=== PATIENT | male | born 1960 | race Caucasian/White ===

== ENCOUNTER → 2020-11-14 08:43 | Outpatient (BNVA) | payer BC, SELFPAY | PROVIDERS: Visit Provider Urology | DX: N32.0 Bladder-neck obstruction (principal) | CPT/HCPCS: 51798 ==

== ENCOUNTER 2021-11-10 12:23 | Outpatient (REF) | payer BC, SELFPAY ==
[2021-11-10 13:34] LABS: Prostate Specific Antigen 1.02 ng/mL (<0.05-4.0)
== END 2021-11-10 12:24 | disposition home or self-care (01) ==
LOC: HO.LAB 12:23
PROVIDERS: PCP Nurse Practitioner Family; Visit Provider Urology
DX: Z12.5 Encounter for screening for malignant neoplasm of prostate (principal); N13.8 Other obstructive and reflux uropathy; N32.0 Bladder-neck obstruction; N40.1 Benign prostatic hyperplasia with lower urinary tract symptoms
CPT/HCPCS: 36415; 84153

== ENCOUNTER → 2021-11-13 08:39 | Outpatient (BNVA) | payer BC, SELFPAY | PROVIDERS: PCP Nurse Practitioner Family; Visit Provider Urology | DX: N32.0 Bladder-neck obstruction (principal) | CPT/HCPCS: 51798 ==

== ENCOUNTER → 2022-02-25 12:48 | Outpatient (REF) | payer BC, SELFPAY ==
--- NOTE | 2022-02-25 12:52 | CA_ITS ---
Transthoracic Echocardiogram Patient (Last, First, Middle): Nehemiah Flores A Gender: Male Date of : 1960 Age: 61 Procedure Date: 02/25/2022 Procedure Type: Transthoracic Echocardiogram Location: OP Height: 177.8 cm Weight: 88.45 kg BSA: 2.06 m2 Heart Rate: bpm BP: 130 / 80 mmHg Advertising Sales Representative: TO Referring MD: Bladimir Pinzon [facility] Symptoms: Z82.49 - Family history of ischemic heart disease and other diseases of ... Study Quality: Fair ECG Rhythm: Sinus Conclusions: - The left ventricular systolic function is low normal. The calculated ejection fraction is 54% by biplane method. - No obvious valvular pathology seen on this study. Findings Left Ventricle Normal left ventricular cavity size. There is normal left ventricular wall thickness. The left ventricular systolic function is low normal. The calculated ejection fraction is 54% by biplane method. There is no evidence of regional wall motion abnormalities. Diastolic function is normal for age. Right Ventricle Normal right ventricular cavity size and systolic function. Atria Both atria are normal in size. Aortic Valve There is a normal trileaflet aortic valve. There is no aortic valve stenosis. There is no aortic valve regurgitation. Mitral Valve The mitral valve appears normal. There is no mitral valve regurgitation. There is no mitral valve stenosis. Pulmonic Valve The pulmonic valve is likely normal. Tricuspid Valve Normal tricuspid valve structure. There is trace tricuspid valve regurgitation. There is no evidence of pulmonary hypertension. Great Vessels The asc aorta is normal in size. Venous The inferior vena cava is normal in size and collapses greater than 50% with inspiration. Pericardium/Pleural There is no evidence of pericardial effusion. Prior Study Comparison No prior study available for comparison. Recommendations, Care & Conclusions No obvious valvular pathology seen on this study. Measurements 2D Linear Measurements IVSd: 0.88 0.6-0.9/0.6-1.0 cm LVIDd: 5.08 3.9-5.3/4.2-5.9 cm LVIDd Index: 2.47 2.4-3.2/2.2-3.1 cm/m2 LVIDs: 3.58 2.0-3.6 cm LVPWd: 0.81 0.7-1.1 cm LA Diam: 3.00 2.7-3.8/3.0-4.0 cm LAIDs Index: 1.46 1.5-2.3 cm/m2 LV Mass: 185.93 67-162/88-224 g LV Mass Index: 90.26 43-95/49-115 g/m2 LVOT Diam: 2.40 3.0+(-)1.3 cm 2D Systolic Function EF 4C: 54.10 >55% EF 2C: 55.50 >55% EF BiP: 54.10 >55% Mitral Valve MV Pk E: 0.50 MV PK A: 0.72 MV Decel Time: 139.00 E/A: 0.70 E'Lateral: 6.42 E'Medial: 6.53 E/E' Med: 7.70 E/E' Lat: 7.80 PHT: 41.00 MVA PHT: 5.37 Decel [place]: 3.60 Aortic Valve AoV Pk Ian: 1.21 AoV Mn Ian: 0.88 AoV VTI: 0.19 AoV Pk Grad: 6.00 Aov Mn Grad: 3.00 REYNA Cont.VTI: 3.12 LVOT LVOT Pk Ian: 0.86 LVOT Mn Ian: 0.57 LVOT VTI: 0.13 LVOT Pk Grad: 3.00 LVOT Mn Grad: 1.00 LVOT Diam: 2.40 LVOT Area: 4.52 Diastolic Function MV Pk E: 0.50 MV Pk A: 0.72 E/A: 0.70 E'Medial: 6.53 E/E' Med: 7.70 E' Laterial: 6.42 E/E' Lat: 7.80 Right Ventricle TAPSE (mm): 22.80 TVS' Ian: 18.00 Tricuspid Valve TR Pk Ian: 2.33 TR Pk Grad: 22.00 RA Press: 3.00 RVSP: 25.00 Great Vessels Aorta Sinus of Valsalva: 3.60 2.0-3.5 cm Ao Asc: 3.40 2.1-3.4 cm Updated in Other Vendor System with Status of Final Bradley Mejia MD electronically signed on 02/26/2022 2:11:16 PM with status of Final
== END ==
LOC: HO.CARD 12:48
PROVIDERS: PCP Nurse Practitioner Family; Visit Provider Nurse Practitioner Family
DX: Z82.49 Family history of ischemic heart disease and other diseases of the circulatory system (principal)
CPT/HCPCS: 93306

== ENCOUNTER 2022-04-22 14:58 | Outpatient (REF) | payer BC, SELFPAY ==
--- NOTE | ~2022-04-22 | XR_ITS ---
EXAMINATION: PRE-MRI ORBITS SCREENING. CLINICAL INFORMATION: History of radiopaque foreign body in orbits COMPARISON: None TECHNIQUE: 3 views FINDINGS: There is noted radiopaque metallic foreign body seen in the orbits at this time. The paranasal sinuses and mastoid air cells are well-aerated. No bony abnormality seen. XR/XR pre mri screening IMPRESSION: Radiopaque metallic foreign body seen in the orbits at this time.
--- NOTE | ~2022-04-22 | MR_ITS ---
EXAMINATION: MRI OF THE BRAIN WITHOUT CONTRAST. CLINICAL INFORMATION: 61-year-old with migraine, unspecified, not intractable, without status migrainosus. COMPARISON: None. TECHNIQUE: Multisequence multiplanar MR imaging of the brain was done without IV contrast. FINDINGS: BRAIN VOLUME: Within normal limits within the limitations of qualitative assessment. STRUCTURAL: No malformations. BRAIN AND MENINGES: DWI sequence demonstrates no definite restricted diffusion when accounting for some artifacts. Specifically, there is no evidence for acute or subacute cerebral ischemia. Gradient refocused imaging demonstrates no abnormal susceptibility-weighted signal loss to suggest hemorrhage, hemosiderin staining or abnormal mineralization. There are numerous T2 hyperintense white matter lesions in the cerebral hemispheres bilaterally, involving the subcortical and deeper periventricular white matter with focally confluent zones of FLAIR/T2 hyperintensity in the subcortical and deeper white matter of the occipital lobes bilaterally. There are some nonspecific patchy and punctate foci of FLAIR/T2 hyperintensity in the subcortical temporal lobe white matter bilaterally. These findings are nonspecific and may reflect chronic ischemic microangiopathy. Migraine associated vasculopathy could also be considered for some of these lesions. Demyelination is considered less likely. No extra-axial fluid collections, significant space-occupying process or mass effect are identified. VENTRICLES AND SUBARACHNOID SPACES: The ventricular system and subarachnoid spaces are within normal range; there is no hydrocephalus. ORBITAL STRUCTURES: The visualized orbital structures are grossly unremarkable within the limitations of the study. VASCULAR: Signal voids are noted in the visualized major intracranial vessels. OSSEOUS STRUCTURES, SINUSES/MASTOIDS, EXTRACRANIAL SOFT TISSUES: Unremarkable. MR/MR head/brain wo con IMPRESSION: 1. Nonspecific white matter T2 hyperintensities in the cerebral hemispheres bilaterally as described above. Differential diagnostic considerations include chronic ischemic microangiopathy, migraine associated vasculopathy and less likely demyelinating disease. 2. No acute intracranial process. No evidence for hemorrhage, extra-axial fluid collection, space-occupying process, mass effect or hydrocephalus.
== END 2022-04-22 14:59 | disposition home or self-care (01) ==
LOC: HO.MRI 14:58
PROVIDERS: Visit Provider Nurse Practitioner Family
DX: G43.909 Migraine, unspecified, not intractable, without status migrainosus (principal)
CPT/HCPCS: 70551

== ENCOUNTER 2022-07-12 21:26 | Inpatient (IN) | payer BC, SELFPAY ==
--- NOTE | 2022-07-12 | ECG_ITS ---
Test Reason : DIZZINESS Blood Pressure : / mmHG Vent. Rate : 166 BPM Atrial Rate : 000 BPM P-R Int : 000 ms QRS Dur : 086 ms QT Int : 282 ms P-R-T Axes : 000 -11 006 degrees QTc Int : 468 ms Atrial fibrillation with rapid ventricular response Nonspecific ST abnormality Abnormal ECG No previous ECGs available Referred By: Generic ED Physician Electronically Signed By:ZURDO KAT MD
[2022-07-12 21:43] VITALS: BP 123/84; PULSE 89; RESP 18; TEMP 36.9; O2SAT 97; BMI 29.4
--- NOTE | 2022-07-12 22:04 | ECG_ITS ---
Test Reason : tachycardia Blood Pressure : / mmHG Vent. Rate : 144 BPM Atrial Rate : 288 BPM P-R Int : 000 ms QRS Dur : 086 ms QT Int : 320 ms P-R-T Axes : 261 -01 -05 degrees QTc Int : 495 ms Atrial flutter with 2:1 A-V conduction Nonspecific ST and T wave abnormality Abnormal ECG When compared with ECG of 12-JUL-2022 21:55, Atrial flutter has replaced Atrial fibrillation ST now depressed in Inferior leads Referred By: Joce Plummer Electronically Signed By:ZURDO KAT MD
--- NOTE | 2022-07-12 22:04 | ECG_ITS ---
Test Reason : tachycardia Blood Pressure : / mmHG Vent. Rate : 107 BPM Atrial Rate : 000 BPM P-R Int : 000 ms QRS Dur : 092 ms QT Int : 302 ms P-R-T Axes : 000 016 017 degrees QTc Int : 403 ms Atrial fibrillation with rapid ventricular response Abnormal ECG When compared with ECG of 12-JUL-2022 22:04, Atrial fibrillation has replaced Atrial flutter ST no longer depressed in Inferior leads Nonspecific T wave abnormality no longer evident in Lateral leads Referred By: Joce Plummer Electronically Signed By:ZURDO KAT MD
[2022-07-12] MEDS: dilTIAZem HCL 50 MG/10 ML VIAL 20 MG IVPUSH ×2 (22:06→22:17)
[2022-07-12 22:15] LABS: MANUAL DIFF FLAG NO
--- NOTE | 2022-07-12 22:16 | ED.ARRPALP ---
HPI - Arrhythmia/Palpitations General Chief Complaint: Dizziness Stated Complaint: dizziness Time Seen by Provider: 07/12/22 22:04 Source: patient Mode of arrival: ambulatory Limitations: no limitations History of Present Illness HPI narrative: Patient with no history of coronary artery disease or arrhythmias felt dizzy while driving at 20:00 became sweaty and diaphoretic on arrival noticed to have pulse rate of 160 irregularly irregular denies any chest pain or shortness of breath patient never been told that he had atrial fibrillation in the past. Patient heart rate increased to 240s when triaged. Related Data Home Medications Medication Instructions Recorded Confirmed cinnamon bark 500 mg capsule 500 mg PO DAILY 10/08/20 06/03/22 loratadine 10 mg tablet (Allergy 10 mg PO DAILY 10/08/20 06/03/22 Relief (loratadine)) venlafaxine 150 mg 150 mg PO DAILY 10/08/20 06/03/22 capsule,extended release 24 hr calcium carbonate 600 mg-vitamin cap PO 06/03/22 06/03/22 D3 25 mcg (1,000 unit) capsule hydrocodone-homatropine 5 mg-1.5 ml PO 06/03/22 06/03/22 mg/5 mL oral syrup tamsulosin 0.4 mg capsule 0.4 mg PO BEDTIME 06/03/22 06/03/22 Previous Rx's Medication Instructions Recorded fenofibrate 160 mg tablet 160 mg PO DAILY 90 days #90 tabs 10/18/21 amitriptyline 10 mg tablet 10 mg PO BEDTIME 30 days #30 tabs 04/13/22 naproxen 500 mg tablet 500 mg PO BID PRN pain/migraine 30 04/13/22 days #30 tabs omeprazole 20 mg capsule,delayed 20 mg PO DAILY #90 caps 06/03/22 release Allergies Allergy/AdvReac Type Severity Reaction Status Date / Time celecoxib [From CELEBREX] Allergy Unknown HIVES Verified 07/12/22 21:33 penicillin G Allergy Unknown rash, Verified 07/12/22 21:33 swelling penicillin V Allergy Unknown hives Verified 07/12/22 21:33 Penicillins [PENICILLINS] Allergy Unknown HIVES Verified 07/12/22 21:33 Review of Systems Review of Systems: Yes all other systems are reviewed and are negative PMFSH Past Medical History Medical History Bladder outlet obstruction Nocturia MCKENNA (obstructive sleep apnea) Pulmonary nodules Weak urinary stream Surgical History History of surgery Leukoplakia Family History Family History Father CVD (cardiovascular disease) Alzheimer's disease Dementia Substance use disorder Mother Infection of spine Substance use disorder Paternal Aunt Diabetes mellitus Brother No problems noted. Sister No problems noted. Sister No problems noted. Sister No problems noted. Sister No problems noted. Social History Social History Housing: House Patient Tobacco Use Status: Former Tobacco user Tobacco use type: Cigarette Years Smoked: 25 years Smoked in Last 30 Days: No e-Cigarette/Vaping Use: Never Used Second Hand Smoke Exposure: No Any prior treatment program specific to substance use: No Advance Directives: No Advance Directives Information Provided: Yes service: Yes Current occupational status: employed Current occupation: [employer] Current occupational exposures/hazards: No Cognitive needs: No Hearing needs: No Vision needs: No Physical Exam Vital Signs: Vital Signs: Last Vital Signs Temp 98.1 F 07/13/22 04:36 Pulse 96 07/13/22 04:36 Resp 20 07/13/22 04:36 BP 132/84 07/13/22 04:36 Pulse Ox 96 07/13/22 04:36 O2 Del Method Room Air 07/13/22 04:36 BMI result Body Mass Index 29.4 Appearance: Alert. Oriented X3. Diaphoretic Eyes: PERRLA, No Nystagmus ENT: Pharynx normal. Oral Mucosa moist Neck: Normal inspection. Neck supple. CVS: Irregularly irregular tachycardic no murmur rub or gallop Pulses normal. Respiratory: No respiratory distress. Equal air entry bilateral, no wheezing/rales/rhonchi Abdomen: Soft and nontender. Bowel sounds are present, Skin: Skin warm and dry. Normal skin color. Normal skin turgor. Extremities: No lower extremity edema. No calf tenderness Neuro: Oriented X 3. No motor deficit. No sensory deficit.No cerebellar signs , cranial nerves II-XII intact Medications Administered Generic Name Dose Route Start Last Admin Trade Name Freq PRN Reason Stop Dose Admin Diltiazem HCl 125 mg/ Sodium 125 mls @ 0 mls/hr 07/12/22 22:15 07/12/22 22:45 Chloride IVCONT 5 mg/hr .Q0M KEANU 5 mls/hr Administration Protocol Per Protocol Discontinued Medications Generic Name Dose Route Start Last Admin Trade Name Jamal PRN Reason Stop Dose Admin Apixaban 5 mg 07/12/22 22:24 07/12/22 22:42 Apixaban 5 Mg Tablet PO 07/12/22 22:25 5 mg ONCE ONE Administration Diltiazem HCl 20 mg 07/12/22 22:04 07/12/22 22:06 Diltiazem Hcl 50 Mg/10 Ml Vial IVPUSH 07/12/22 22:05 20 mg STAT STA Administration Diltiazem HCl 20 mg 07/12/22 22:13 07/12/22 22:17 Diltiazem Hcl 50 Mg/10 Ml Vial IVPUSH 07/12/22 22:14 20 mg STAT STA Administration Sodium Chloride 1,000 mls @ 999 mls/hr 07/12/22 22:21 07/12/22 23:44 Ns IV 07/12/22 23:21 Infused .Q1H1M ONE Infusion Medical Decision Making Medical Decision Making [facility] Narrative: Patient with new onset of atrial fibrillation with rapid ventricular response initial heart rate was 240s responded to20 mg of Cardizem again went back to 140s range , another dose of Cardizem was given and started on Cardizem drip 2345 patient's heart rate in 90s on Cardizem drip feeling much better admitted to medical floor hospitalist aware Differential Diagnosis Atrial flutter/AFib/SVT Consult Healthcare Provider Management of the patient was discussed with: Hospitalist Lab Data MDM Lab Attestation statement: I reviewed the patient's lab results. 07/12/22 22:09 Labs: Lab Results 07/12/22 07/12/22 07/12/22 Range/Units 22:09 22:09 22:09 WBC 7.6 (4.8-10.8) X10*3/uL RBC 4.62 (4.60-5.80) X10*6/uL Hgb 15.2 (14.0-18.0) g/dl Hct 44.9 (42.0-52.0) % MCV 97.2 (80.0-98.0) fL MCH 32.9 (27.0-33.0) pg MCHC 33.9 (31.0-36.0) g/dl RDW 12.6 (11.0-16.0) % Plt Count 237 (160-400) X10*3/uL MPV 9.8 (9.4-12.4) fL Immature Gran % (Auto) 0.3 (0.0-0.4) % Neut % (Auto) 70.2 (45-73) % Lymph % (Auto) 20.3 (20-40) % [place] % (Auto) 7.4 (2-11) % Eos % (Auto) 0.9 (0-4) % Baso % (Auto) 0.9 (0-2) % Lymph # (Auto) 1.5 (1.2-4.9) X10*3/uL [place] # (Auto) 0.6 (0.1-1.2) X10*3/uL Eos # (Auto) 0.1 (0.0-0.4) X10*3/uL Baso # (Auto) 0.1 (0.0-0.2) X10*3/uL Abs Immat Gran (auto) 0.02 (0.00-0.03) X10*3/uL Absolute Neuts (auto) 5.3 (2.0-8.3) x10*3/uL Absolute Nucleated RBC 0.000 (0.0-0.012) X10*3/uL Nucleated RBC % (auto) 0.0 (0.0-0.2) /100WBC PT 10.8 (10.0-13.1) SEC INR 0.9 (0.9-1.1) APTT 28.7 (26.0-36.4) SEC Sodium (135-145) mmol/L Potassium (3.3-5.1) mmol/L Chloride (96-108) mmol/L Carbon Dioxide (22-29) mmol/L Anion Gap (12-20) BUN (9-16) mg/dL Creatinine (0.5-1.4) mg/dL Estim Creat Clear Calc Estimated GFR Random Glucose (60-115) mg/dL Calcium (8.4-10.2) mg/dL Magnesium (1.6-2.6) mg/dL Total Bilirubin (0.0-1.0) mg/dL AST (5-37) U/L ALT (0-40) U/L Alkaline Phosphatase (39-117) U/L Troponin I High Sens 7.3 (<3.5-35.0) ng/L B-Natriuretic Peptide (<100) pg/mL Total Protein (6.5-8.0) g/dL Albumin (3.5-5.0) g/dL TSH (0.32-4.0) uIU/mL 07/12/22 07/12/22 Range/Units 22:09 22:09 WBC (4.8-10.8) X10*3/uL RBC (4.60-5.80) X10*6/uL Hgb (14.0-18.0) g/dl Hct (42.0-52.0) % MCV (80.0-98.0) fL MCH (27.0-33.0) pg MCHC (31.0-36.0) g/dl RDW (11.0-16.0) % Plt Count (160-400) X10*3/uL MPV (9.4-12.4) fL Immature Gran % (Auto) (0.0-0.4) % Neut % (Auto) (45-73) % Lymph % (Auto) (20-40) % [place] % (Auto) (2-11) % Eos % (Auto) (0-4) % Baso % (Auto) (0-2) % Lymph # (Auto) (1.2-4.9) X10*3/uL [place] # (Auto) (0.1-1.2) X10*3/uL Eos # (Auto) (0.0-0.4) X10*3/uL Baso # (Auto) (0.0-0.2) X10*3/uL Abs Immat Gran (auto) (0.00-0.03) X10*3/uL Absolute Neuts (auto) (2.0-8.3) x10*3/uL Absolute Nucleated RBC (0.0-0.012) X10*3/uL Nucleated RBC % (auto) (0.0-0.2) /100WBC PT (10.0-13.1) SEC INR (0.9-1.1) APTT (26.0-36.4) SEC Sodium 145 (135-145) mmol/L Potassium 4.4 (3.3-5.1) mmol/L Chloride 109 H (96-108) mmol/L Carbon Dioxide 27 (22-29) mmol/L Anion Gap 13 (12-20) BUN 13 (9-16) mg/dL Creatinine 1.38 (0.5-1.4) mg/dL Estim Creat Clear Calc 64.4 Estimated GFR 52 Random Glucose 108 (60-115) mg/dL Calcium 9.2 (8.4-10.2) mg/dL Magnesium 1.8 (1.6-2.6) mg/dL Total Bilirubin 0.5 (0.0-1.0) mg/dL AST 14 (5-37) U/L ALT 12 (0-40) U/L Alkaline Phosphatase 41 (39-117) U/L Troponin I High Sens (<3.5-35.0) ng/L B-Natriuretic Peptide 14 (<100) pg/mL Total Protein 6.4 L (6.5-8.0) g/dL Albumin 4.1 (3.5-5.0) g/dL TSH 1.12 (0.32-4.0) uIU/mL Independent Interpretation I performed an independent interpretation of an: EKG Interpretation: Atrial fibrillation with heart rate of 166 beats per minute no acute ST-T changes no acute ischemia Critical Care Time Critical Care Time Critical Care Time: Yes Total Critical Care Time: 90 Attestation: The patient was critically ill with a high probability of imminent or life threatening deterioration. I spent greater than 90 minutes of discontinuous time evaluating the patient,delivering critical care at the bedside, discussing and evaluating pertinent data with consultants. Critical care time does not include time spent performing separately billable procedures or teaching. Total time spent performing critical care was 85 minutes. Discharge Plan Discharge Clinical Impression: Atrial fibrillation with rapid ventricular response Patient Disposition: Admitted As Inpatient
[2022-07-12 22:17] LABS: Basophils Absolute Auto 0.1 X10*3/uL (0.0-0.2); Basophils Percent Auto 0.9 % (0-2); Eosinophils Absolute Auto 0.1 X10*3/uL (0.0-0.4); Eosinophils Percent Auto 0.9 % (0-4); Hematocrit 44.9 % (42.0-52.0); Hemoglobin 15.2 g/dl (14.0-18.0); Imm Gran Abs Auto 0.02 X10*3/uL (0.00-0.03); Imm Gran Pct Auto 0.3 % (0.0-0.4); Lymphocytes Absolute Auto 1.5 X10*3/uL (1.2-4.9); Lymphocytes Percent Auto 20.3 % (20-40); Mean Corpuscular HGB Conc 33.9 g/dl (31.0-36.0); Mean Corpuscular Hemoglobin 32.9 pg (27.0-33.0); Mean Corpuscular Volume 97.2 fL (80.0-98.0); Mean Platelet Volume 9.8 fL (9.4-12.4); Monocytes Absolute Auto 0.6 X10*3/uL (0.1-1.2); Monocytes Percent Auto 7.4 % (2-11); Neutrophils Absolute Auto 5.3 x10*3/uL (2.0-8.3); Neutrophils Percent Auto 70.2 % (45-73); Platelet Count 237 X10*3/uL (160-400); Red Blood Count 4.62 X10*6/uL (4.60-5.80); Red Cell Distribution Width 12.6 % (11.0-16.0); White Blood Count 7.6 X10*3/uL (4.8-10.8)
[2022-07-12 22:25] VITALS: BP 103/79; PULSE 94; RESP 18; TEMP 36.8; O2SAT 98
[2022-07-12 22:30] LABS: INTERNATIONAL NORM RATIO 0.9 (0.9-1.1); Prothrombin Time 10.8 SEC (10.0-13.1)
[2022-07-12 22:33] LABS: Partial Thromboplastin Time 28.7 SEC (26.0-36.4)
[2022-07-12 22:41] LABS: B Type Natriuretic Peptide 14 pg/mL (<100)
[2022-07-12] MEDS: Apixaban 5 MG TABLET PO (22:42)
[2022-07-12] MEDS: 0.9 % Sodium Chloride 1,000 ML 999 ML IV (22:43)
[2022-07-12 22:44] LABS: Alanine Aminotransferase 12 U/L (0-40); Albumin Level 4.1 g/dL (3.5-5.0); Alkaline Phosphatase 41 U/L (39-117); Anion Gap 13 (12-20); Aspartate Amino Transferase 14 U/L (5-37); Bilirubin Total 0.5 mg/dL (0.0-1.0); Blood Urea Nitrogen 13 mg/dL (9-16); Calcium 9.2 mg/dL (8.4-10.2); Carbon Dioxide 27 mmol/L (22-29); Chloride 109 mmol/L (96-108); Creatinine Clr Calc Pharmacy 64.4; Estimated Glomerular Filt Rate 52; Glucose Random 108 mg/dL (60-115); Magnesium 1.8 mg/dL (1.6-2.6); Potassium 4.4 mmol/L (3.3-5.1); Sodium 145 mmol/L (135-145); Total Protein 6.4 g/dL (6.5-8.0)
[2022-07-12 22:45] LABS: Troponin-I High Sensitivity 7.3 ng/L (<3.5-35.0)
[2022-07-12] MEDS: dilTIAZem HCL 125 MG in 0.9 % Sodium Chloride 100 ML IVCONT (22:45)
[2022-07-12 22:58] LABS: Thyroid Stimulating Hormone 1.12 uIU/mL (0.32-4.0)
[2022-07-13] VITALS (13 sets, daily range): BP systolic 113–135; BP diastolic 70–95; PULSE 88–121; RESP 14–20; TEMP 36.6–36.8; O2SAT 95–98; BMI 29.5
--- NOTE | 2022-07-13 | MHC.EDTECH ---
0000 ROUNDING DONE ,VITALS SIGN TAKEN , THIS PCT ASKED PT IF HE WAS HUNGRY ,PT SAID YES ,PT HAD TUNA FISH SANDWICH ,PUDDING AND A CAN OF IRENE CASI ,PT IS STAYING WITH PT MARTIN .
--- NOTE | 2022-07-13 00:05 | PM.IMHP ---
History of Present Illness Date of Service: 07/12/22 Chief Complaint: dizziness 61-year-old male past medical history of GERD, BPH, MCKENNA not compliant with CPAP, hyperlipidemia, presents to the hospital with complaints of dizzy spells. Patient reports started earlier in the day, had several episodes of feeling dizzy, denies any palpitations, no fluttering in the chest, no chest pain, but has been feeling slightly short of breath, no abdominal pain nausea or vomiting, no diarrhea constipation, no urinary symptoms and no lower extremity edema. denies any previous similar episode On arrival to the ED patient noted to have a heart rate of 200 per ED physician although not documented, patient currently on Cardizem drip with heart rate of 110 labs otherwise unremarkable, TSH of 1.12, troponin negative, BNP negative EKG shows AFib with RVR Review of Systems Review of Systems: Yes all other systems are reviewed and are negative [facility] Medical History Bladder outlet obstruction Nocturia MCKENNA (obstructive sleep apnea) Pulmonary nodules Weak urinary stream Family History Father CVD (cardiovascular disease) Alzheimer's disease Dementia Substance use disorder Mother Infection of spine Substance use disorder Paternal Aunt Diabetes mellitus Brother No problems noted. Sister No problems noted. Sister No problems noted. Sister No problems noted. Sister No problems noted. Surgical History History of surgery Leukoplakia Social History Housing: House Patient Tobacco Use Status: Former Tobacco user Tobacco use type: Cigarette Years Smoked: 25 years Smoked in Last 30 Days: No e-Cigarette/Vaping Use: Never Used Second Hand Smoke Exposure: No Any prior treatment program specific to substance use: No Advance Directives: No Advance Directives Information Provided: Yes service: Yes Current occupational status: employed Current occupation: [employer] Current occupational exposures/hazards: No Cognitive needs: No Hearing needs: No Vision needs: No Meds Allergies Allergy/AdvReac Type Severity Reaction Status Date / Time celecoxib [From CELEBREX] Allergy Unknown HIVES Verified 07/12/22 21:33 penicillin G Allergy Unknown rash, Verified 07/12/22 21:33 swelling penicillin V Allergy Unknown hives Verified 07/12/22 21:33 Penicillins [PENICILLINS] Allergy Unknown HIVES Verified 07/12/22 21:33 Active Medications: Current Medications Acetaminophen (Acetaminophen 325 Mg Tablet) 650 mg PO Q6H PRN PRN Reason: Pain, Mild (Pain Scale 1-3) Docusate Sodium (Docusate Sodium 100 Mg Capsule) 100 mg PO DAILY PRN PRN Reason: Constipation Enoxaparin Sodium (Enoxaparin Sodium 40 Mg/0.4 Ml Syringe) 40 mg SUBCUT Q24H KEANU Diltiazem HCl 125 mg/ Sodium (Chloride) 125 mls @ 0 mls/hr IVCONT .Q0M KEANU; Protocol Last Admin: 07/12/22 22:45 Dose: 5 mg/hr, 5 mls/hr Ondansetron HCl (Ondansetron Hcl 4 Mg/2 Ml Vial) 4 mg IVPUSH Q8H PRN PRN Reason: Nausea and Vomiting Home Medications Medication Instructions Recorded Confirmed Last Taken Type cinnamon bark 500 mg capsule 500 mg PO DAILY 10/08/20 06/03/22 Unknown History loratadine 10 mg tablet (Allergy 10 mg PO DAILY 10/08/20 06/03/22 Unknown History Relief (loratadine)) venlafaxine 150 mg 150 mg PO DAILY 10/08/20 06/03/22 Unknown History capsule,extended release 24 hr calcium carbonate 600 mg-vitamin cap PO 06/03/22 06/03/22 Unknown History D3 25 mcg (1,000 unit) capsule hydrocodone-homatropine 5 mg-1.5 ml PO 06/03/22 06/03/22 Unknown History mg/5 mL oral syrup tamsulosin 0.4 mg capsule 0.4 mg PO BEDTIME 06/03/22 06/03/22 Unknown History Physical Exam Vital Signs and Narrative: Vital Signs: Last Vital Signs Temp 98.3 F 07/12/22 22:25 Pulse 94 07/12/22 22:25 Resp 18 07/12/22 22:25 BP 103/79 07/12/22 22:25 Pulse Ox 98 07/12/22 22:25 O2 Del Method Room Air 07/12/22 22:25 BMI result Body Mass Index 29.4 Const: General: cooperative and no acute distress Orientation/consciousness: patient oriented x3 Eyes: General: appearance normal, both eyes and all related structures Pupils: Equal, round and reactive pupils present Resp: Effort & Inspection: normal respiratory effort Auscultation: clear to auscultation bilaterally Cardio: Other: tachycardic, irregular heart rate GI: Palpation (GI): Soft to palpation Auscultation: normal bowel sounds Skin: General skin exam: no rashes or lesions noted Neuro: General: patient oriented x3 Cranial nerves: Yes Equal, round and reactive pupils present Cognition (Neuro): normal cognition Extrem: General: Yes normal to inspection and Yes no pedal edema Results Labs 07/12/22 22:09 07/12/22 22:09 Labs: Laboratory Results - last 24 hr 07/12/22 07/12/22 07/12/22 22:09 22:09 22:09 MCV 97.2 MCH 32.9 MCHC 33.9 RDW 12.6 Plt Count 237 MPV 9.8 Immature Gran % (Auto) 0.3 Neut % (Auto) 70.2 Lymph % (Auto) 20.3 Garrett % (Auto) 7.4 Eos % (Auto) 0.9 Baso % (Auto) 0.9 Lymph # (Auto) 1.5 Garrett # (Auto) 0.6 Eos # (Auto) 0.1 Baso # (Auto) 0.1 Abs Immat Gran (auto) 0.02 Absolute Neuts (auto) 5.3 Absolute Nucleated RBC 0.000 Nucleated RBC % (auto) 0.0 PT 10.8 INR 0.9 APTT 28.7 Anion Gap Estim Creat Clear Calc Estimated GFR Random Glucose Calcium Magnesium Total Bilirubin AST ALT Alkaline Phosphatase Troponin I High Sens 7.3 B-Natriuretic Peptide Total Protein Albumin TSH 07/12/22 07/12/22 22:09 22:09 MCV MCH MCHC RDW Plt Count MPV Immature Gran % (Auto) Neut % (Auto) Lymph % (Auto) Garrett % (Auto) Eos % (Auto) Baso % (Auto) Lymph # (Auto) Garrett # (Auto) Eos # (Auto) Baso # (Auto) Abs Immat Gran (auto) Absolute Neuts (auto) Absolute Nucleated RBC Nucleated RBC % (auto) PT INR APTT Anion Gap 13 Estim Creat Clear Calc 64.4 Estimated GFR 52 Random Glucose 108 Calcium 9.2 Magnesium 1.8 Total Bilirubin 0.5 AST 14 ALT 12 Alkaline Phosphatase 41 Troponin I High Sens B-Natriuretic Peptide 14 Total Protein 6.4 L Albumin 4.1 TSH 1.12 Assessment and Plan (1) Atrial fibrillation with rapid ventricular response: Status: Acute Plan 61-year-old male with past medical history of hyperlipidemia, MCKENNA on CPAP- noncompliance presents to the hospital with complaints of dizziness found to have AFib with RVR # new onset AFib with RVR - CHADsVasc score of 0 - patient on Cardizem for rate control - cardiology consult id - echocardiogram - admit to telemetry # MCKENNA - CPAP at bedtime # bladder outlet obstruction - continue tamsulosin DVT prophylaxis: Early ambulation Time Spent With Patient Time: Total time managing care of this patient today ____ minutes. Quality Stroke Does the patient have a stroke diagnosis?: No VTE Prior VTE?: No VTE Risk Level:: Medical - moderate - high VTE Device Contraindication: Treatment Not Indicated VTE Drug Contraindication: N/A - Med Ordered
--- NOTE | 2022-07-13 04:00 | MHC.EDTECH ---
0400 ROUNDING DONE ,VITALS SIGN TAKEN ,PT AWAKE ,PATIENT AT BEDSIDE .
[2022-07-13 07:00] LABS: Alanine Aminotransferase 10 U/L (0-40); Albumin Level 3.9 g/dL (3.5-5.0); Alkaline Phosphatase 35 U/L (39-117); Anion Gap 11 (12-20); Aspartate Amino Transferase 13 U/L (5-37); Bilirubin Total 0.6 mg/dL (0.0-1.0); Blood Urea Nitrogen 11 mg/dL (9-16); Carbon Dioxide 24 mmol/L (22-29); Chloride 110 mmol/L (96-108); Creatinine Clr Calc Pharmacy 98.7; Estimated Glomerular Filt Rate > 60; Glucose Random 93 mg/dL (60-115); Sodium 141 mmol/L (135-145); Total Protein 6.1 g/dL (6.5-8.0)
--- NOTE | 2022-07-13 07:00 | CA_ITS ---
Transthoracic Echocardiogram Patient (Last, First, Middle): Nehemiah Flores A Gender: Male Date of : 1960 Age: 61 Procedure Date: 07/13/2022 Procedure Type: Transthoracic Echocardiogram [place] [facility] [place]: 177.8 cm Weight: 92.99 kg BSA: 2.11 m2 Heart Rate: bpm BP: 132 / 84 mmHg Unix Developer: Referring MD: Radha Tatum MD Results Technician: José Manuel Allen MD Symptoms: new onset a fib Study Quality: Adequate ECG Rhythm: Atrial Fibrillation Conclusions: - 1. Low normal LV systolic function with LVEF of 50-55% 2. Normal cardiac valvular Dopplers 3. Normal RV systolic pressure 4. No gross pericardial effusion Findings Left Ventricle Normal left ventricular cavity size. There is normal left ventricular wall thickness. The left ventricular systolic function is low normal. The visually estimated ejection fraction is between 50-55%. Diastolic function is indeterminate on the basis of available data. Right Ventricle Mildly increased right ventricular cavity size. There is normal right ventricular systolic function. Atria Both atria are normal in size. There is no evidence of interatrial shunt. Aortic Valve Normal aortic valve structure and function. There is no aortic valve stenosis. There is no aortic valve regurgitation. Mitral Valve Normal mitral valve structure and function. There is trace mitral valve regurgitation. There is no mitral valve stenosis. Pulmonic Valve The pulmonic valve is likely normal. Tricuspid Valve Normal tricuspid valve structure. There is trace tricuspid valve regurgitation. The right ventricular systolic pressure is normal. The right ventricular systolic pressure is 29 mmHg. Normal right atrial pressure. There is no evidence of pulmonary hypertension. Great Vessels All visible segments of the aorta are normal in size. The pulmonary artery was not well visualized. Venous The inferior vena cava is normal in size and collapses greater than 50% with inspiration. Pericardium/Pleural There is no evidence of pericardial effusion. Measurements 2D Linear Measurements IVSd: 1.02 0.6-0.9/0.6-1.0 cm LVIDd: 4.34 3.9-5.3/4.2-5.9 cm LVIDd Index: 2.06 2.4-3.2/2.2-3.1 cm/m2 LVIDs: 3.29 2.0-3.6 cm LVPWd: 1.03 0.7-1.1 cm LA Diam: 3.90 2.7-3.8/3.0-4.0 cm LAIDs Index: 1.85 1.5-2.3 cm/m2 LV Mass: 186.34 67-162/88-224 g LV Mass Index: 88.31 43-95/49-115 g/m2 LVOT Diam: 2.10 3.0+(-)1.3 cm 2D Systolic Function EF 4C: 52.70 >55% EF 2C: 49.80 >55% EF BiP: 52.90 >55% Mitral Valve MV Pk E: 0.80 MV Decel Time: 133.00 E'Lateral: 14.00 E'Medial: 12.50 E/E' Med: 6.40 E/E' Lat: 5.70 PHT: 39.00 MVA PHT: 5.64 Decel [place]: 5.99 Aortic Valve AoV Pk Ian: 1.09 AoV Mn Ian: 0.73 AoV VTI: 0.25 AoV Pk Grad: 5.00 Aov Mn Grad: 3.00 REYNA Cont.VTI: 2.22 LVOT LVOT Pk Ian: 0.75 LVOT Mn Ian: 0.48 LVOT VTI: 0.16 LVOT Pk Grad: 2.00 LVOT Mn Grad: 1.00 LVOT Diam: 2.10 LVOT Area: 3.46 Diastolic Function MV Pk E: 0.80 E'Medial: 12.50 E/E' Med: 6.40 E' Laterial: 14.00 E/E' Lat: 5.70 Right Ventricle TAPSE (mm): 36.00 Tricuspid Valve TR Pk Ian: 2.27 TR Pk Grad: 21.00 RA Press: 8.00 RVSP: 29.00 Great Vessels Aorta Sinus of Valsalva: 3.30 2.0-3.5 cm Ao Asc: 3.30 2.1-3.4 cm Pulmonary Valve PV Pk Ian: 0.82 Peak PV Grad: 3.00 Updated in Other Vendor System with Status of Final José Manuel Allen MD electronically signed on 07/13/2022 2:24:01 PM with status of Final
--- NOTE | 2022-07-13 08:31 | PC.RT ---
spoke with patient regarding cpap machine. He said he is claustrophobic and [facility] Pulm MD is Jolanta and COLLIN Laboy. Spoke to hime about nasal pillows and we can use auto set here in the hospital. He would like to try this evening.
--- NOTE | 2022-07-13 09:12 | P.CONCA_ITS ---
History of Present Illness History of Present Illness Date of Service: 07/13/22 Requesting physician: Joce Plummer Consult reason: atrial fibrillation Chief complaint: new onset a fib Narrative: I was consulted to see jaws in cardiology consultation today for new onset atrial fibrillation. He is a pleasant 61-year-old male with no significant past medical history except for migraines. Patient went to work yesterday around 18:00 was feeling a little lightheaded, did not pay much attention to it. 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 He then said down on the chair right away and call for help. He was then referred to the emergency room. There was no associated rapid heart rate or palpitations. He did not actually lose consciousness. He denies shortness of breath or chest pain. No neurologic events. He came to the Emergency was noted to be in atrial fibrillation rapid ventricular response with stable blood pressure. He was then started on Cardizem drip and got 1 dose of Eliquis yesterday. He does not feel dizzy at this point time. He said he has chronic cough and with cough he does get dizzy. He drinks a lot of water. He said over the last weekend he just tilt out and had about 5-6 beers every day. He does not usually drink on the days when he works. He has no prior history of atrial fibrillation. No prior risk factors. No family history of atrial fibrillation. Denies any recent illnesses. Review of Systems Constitutional: Constitutional: Reports no additional constitutional com plaints Eyes: Eyes: Reports no additional eye complaints Cardiovascular: Cardiovascular: Denies chest pain, Denies rapid heart rate, Reports lightheadedness, Denies Loss of Consciousness, Denies palpitations and Denies dyspnea Respiratory: Respiratory: Reports no additional respiratory complaints and Denies dyspnea Gastrointestinal: Gastrointestinal: Reports no additional gastrointestinal complaints Genitourinary: Genitourinary: Reports no additional male genitourinary complaints Musculoskeletal: Musculoskeletal: Reports no additional musculoskeletal complaints Integumentary/Breasts: Skin/Breast: Reports system reviewed and no additional complaints, except as docu Neurologic: Reports system reviewed and no additional complaints, except as documented Psychiatric: Psychiatric: Reports no additional psychiatric complaints Endocrine: Endocrine: Denies palpitations Hematologic/Lymphatic: Hematologic/Lymphatic: Reports no additional hematologic/lymphatic complaints Allergic/Immunologic: Allergic/Immunologic: Reports no additional allergic/immunologic complaints [facility] Past Medical History Medical History Bladder outlet obstruction Nocturia MCKENNA (obstructive sleep apnea) Pulmonary nodules Weak urinary stream Family History Family History Father CVD (cardiovascular disease) Alzheimer's disease Dementia Substance use disorder Mother Infection of spine Substance use disorder Paternal Aunt Diabetes mellitus Brother No problems noted. Sister No problems noted. Sister No problems noted. Sister No problems noted. Sister No problems noted. Surgical History Surgical History History of surgery Leukoplakia Social History Social History Housing: House Patient Tobacco Use Status: Former Tobacco user Tobacco use type: Cigarette Years Smoked: 25 years Smoked in Last 30 Days: No e-Cigarette/Vaping Use: Never Used Second Hand Smoke Exposure: No Any prior treatment program specific to substance use: No Advance Directives: No Advance Directives Information Provided: Yes service: Yes Current occupational status: employed Current occupation: [employer] Current occupational exposures/hazards: No Cognitive needs: No Hearing needs: No Vision needs: No Meds Allergies Allergy/AdvReac Type Severity Reaction Status Date / Time celecoxib [From CELEBREX] Allergy Unknown HIVES Verified 07/12/22 21:33 penicillin G Allergy Unknown rash, Verified 07/12/22 21:33 swelling penicillin V Allergy Unknown hives Verified 07/12/22 21:33 Penicillins [PENICILLINS] Allergy Unknown HIVES Verified 07/12/22 21:33 Active Medications: Current Medications Acetaminophen (Acetaminophen 325 Mg Tablet) 650 mg PO Q6H PRN PRN Reason: Pain, Mild (Pain Scale 1-3) Apixaban (Apixaban 5 Mg Tablet) 5 mg PO BID KEANU Docusate Sodium (Docusate Sodium 100 Mg Capsule) 100 mg PO DAILY PRN PRN Reason: Constipation Flecainide Acetate (Flecainide Acetate 50 Mg Tablet) 150 mg PO ONCE ONE Stop: 07/13/22 09:11 Diltiazem HCl 125 mg/ Sodium (Chloride) 125 mls @ 0 mls/hr IVCONT .Q0M [facility]; Protocol Last Admin: 07/12/22 22:45 Dose: 5 mg/hr, 5 mls/hr Home Medications Medication Instructions Recorded Confirmed Last Taken Type venlafaxine 150 mg 150 mg PO DAILY 10/08/20 07/13/22 Unknown History capsule,extended release 24 hr hydrocodone-homatropine 5 mg-1.5 10 ml PO Q6H PRN Cough 06/03/22 07/13/22 Unknown History mg/5 mL oral syrup tamsulosin 0.4 mg capsule 0.4 mg PO BEDTIME 06/03/22 07/13/22 Unknown History Physical Exam Vital Signs: Vital Signs: Last Vital Signs Temp 98.1 F 07/13/22 04:36 Pulse 88 07/13/22 07:13 Resp 14 07/13/22 07:13 BP 126/89 07/13/22 07:13 Pulse Ox 97 07/13/22 07:13 O2 Del Method Room Air 07/13/22 07:13 BMI result Body Mass Index 29.4 Const: General: cooperative, comfortable, no acute distress, alert, awake and anxious Nutritional Appearance: overweight Orientation/consciousness: patient oriented x3 Limitations: no limitations HEENT: Head: Yes normocephalic and Yes atraumatic Neck: Neck: Yes trachea midline and Yes no JVD Chest: Chest palpation & inspection: normal inspection of the chest Resp: Effort & Inspection: normal respiratory effort Auscultation: clear to auscultation bilaterally Cardio: Jugular venous distension: no JVD Rhythm: abnormal rhythm irregularly irregular Heart sounds: S1 normal heart sound present, S2 normal heart sound present, no click, no gallops, no murmurs and no rubs GI: Auscultation: normal bowel sounds Skin: General skin exam: no rashes or lesions noted Neuro: General: patient oriented x3 and no focal motor deficits Extrem: General: Yes no clubbing, cyanosis or edema Psych: Appearance: grossly normal Affect: Anxious affect present Objective Labs and Meds 07/12/22 22:09 07/13/22 06:08 Lab results: Laboratory Results - last 24 hr 07/12/22 07/12/22 07/12/22 22:09 22:09 22:09 WBC 7.6 RBC 4.62 Hgb 15.2 Hct 44.9 MCV 97.2 MCH 32.9 MCHC 33.9 RDW 12.6 Plt Count 237 MPV 9.8 Immature Gran % (Auto) 0.3 Neut % (Auto) 70.2 Lymph % (Auto) 20.3 [place] % (Auto) 7.4 Eos % (Auto) 0.9 Baso % (Auto) 0.9 Lymph # (Auto) 1.5 [place] # (Auto) 0.6 Eos # (Auto) 0.1 Baso # (Auto) 0.1 Abs Immat Gran (auto) 0.02 Absolute Neuts (auto) 5.3 Absolute Nucleated RBC 0.000 Nucleated RBC % (auto) 0.0 PT 10.8 INR 0.9 APTT 28.7 Sodium Potassium Chloride Carbon Dioxide Anion Gap BUN Creatinine Estim Creat Clear Calc Estimated GFR Random Glucose Calcium Magnesium Total Bilirubin AST ALT Alkaline Phosphatase Troponin I High Sens 7.3 B-Natriuretic Peptide Total Protein Albumin TSH 07/12/22 07/12/22 07/13/22 22:09 22:09 06:08 WBC RBC Hgb Hct MCV MCH MCHC RDW Plt Count MPV Immature Gran % (Auto) Neut % (Auto) Lymph % (Auto) [place] % (Auto) Eos % (Auto) Baso % (Auto) Lymph # (Auto) [place] # (Auto) Eos # (Auto) Baso # (Auto) Abs Immat Gran (auto) Absolute Neuts (auto) Absolute Nucleated RBC Nucleated RBC % (auto) PT INR APTT Sodium 145 141 Potassium 4.4 4.0 Chloride 109 H 110 H Carbon Dioxide 27 24 Anion Gap 13 11 L BUN 13 11 Creatinine 1.38 0.90 Estim Creat Clear Calc 64.4 98.7 Estimated GFR 52 > 60 Random Glucose 108 93 Calcium 9.2 9.0 Magnesium 1.8 Total Bilirubin 0.5 0.6 AST 14 13 ALT 12 10 Alkaline Phosphatase 41 35 L Troponin I High Sens B-Natriuretic Peptide 14 Total Protein 6.4 L 6.1 L Albumin 4.1 3.9 TSH 1.12 Assessment and Plan (1) Atrial fibrillation with rapid ventricular response: Status: Acute Symptomatic atrial fibrillation rapid ventricular response the symptoms of mainly dizziness which is unusual. Denies any event symptoms like this in the past except for when he is coughing a lot he would get dizzy. He denies any sy ncopal episode. Symptoms are resolved with better rate control although given that his less than 24 hour should try to achieve rhythm control. Will give him p.o. flecainide 150 mg x 1 and watch him closely. Will also give him Eliquis 5 mg b.i.d.. If he converts back to sinus rhythm, will probably discharge him later today with Toprol and Eliquis for at least a month. Most likely reason being recent alcohol use in the setting of underlying obstructive sleep apnea. Should treat sleep apnea if significant with CPAP therapy. Management of atrial fibrillation was discussed in details. Will follow with response to oral medications. If he does not convert, will probably plan for synchronized cardioversion tomorrow. Thank you for allowing me to partake in his care Time Spent With Patient Time: Total time managing care of this patient today ____ minutes. Procedures Date of Service Date of Service: 07/13/22
[2022-07-13] MEDS: Flecainide Acetate 50 MG TABLET 150 MG PO ×2 (09:20→12:49)
--- NOTE | 2022-07-13 09:58 | MHC.CM.PN ---
Met with patient and , Marleen, in regards to discharge planning. Patient lives with Marleen, ambulates independently and had no services prior to coming to the hospital. Patient is still employed. No service anticipated to be needed at discharge because patient is not homebound. PCP verified. Patient denies having a HCP. Information provided. Patient declined to complete one at this time. Patient received 2 Pfizer vaccines. Marleen will transport patient home when medically stable. Continue to monitor for d/c needs.
[2022-07-13] MEDS: Apixaban 5 MG TABLET PO ×2 (10:51→22:06)
--- NOTE | 2022-07-13 12:19 | PM.EVENT ---
Event Note Date of Service: 07/13/22 Event Note: Patient remains in atrial fibrillation after 2 hours of oral flecainide dose. Will give him on a dose of 150 mg flecainide. If remains in atrial fibrillation despite that, keep him NPO past midnight for synchronized cardioversion tomorrow. Continue full oral anticoagulation with Eliquis Time Spent With Patient Time: Total time managing care of this patient today ____ minutes.
[2022-07-13] MEDS: dilTIAZem HCL 125 MG in 0.9 % Sodium Chloride 100 ML IVCONT (12:53)
--- NOTE | 2022-07-13 13:03 | PC.NURSE ---
Patient heart rate still elevated, provider ordered a second dose of flecinide at this time. administered per MAY.
--- NOTE | 2022-07-13 18:22 | P.PNIM_ITS ---
Subjective Subjective Date of Service: 07/14/22 Interval History: afib with rvr Review of Systems denies any new complaint of chest pain or shortness of breath or palpitations Heart rate is running between 100-110 range, Physical Exam Vital Signs: Vital Signs: Last Vital Signs Temp 98.1 F 07/13/22 04:36 Pulse 110 H 07/13/22 10:52 Resp 18 07/13/22 10:52 BP 121/75 07/13/22 10:52 Pulse Ox 96 07/13/22 10:52 O2 Del Method Room Air 07/13/22 07:13 BMI result Body Mass Index 29.4 Appearance: Alert.? Oriented X3.? not in distress. cvs: irregular rythem, [id number]. res: clear to auscultation ,no rhonchii or wheezing abd: no rebound or guarding ,nt, bs present. ext pulses present , no cyanosis . neuro: axo3 , nonfocal. Objective Data Active Medications Acetaminophen (Acetaminophen 325 Mg Tablet) 650 mg PO Q6H PRN PRN Reason: Pain, Mild (Pain Scale 1-3) Apixaban (Apixaban 5 Mg Tablet) 5 mg PO BID [facility] Last Admin: 07/13/22 10:51 Dose: 5 mg Documented By: LIO Docusate Sodium (Docusate Sodium 100 Mg Capsule) 100 mg PO DAILY PRN PRN Reason: Constipation Diltiazem HCl 125 mg/ Sodium (Chloride) 125 mls @ 0 mls/hr IVCONT .Q0M [facility]; Protocol Last Titration: 07/13/22 13:05 Dose: 10 mg/hr, 10 mls/hr Documented By: EDELMIRA Labs 07/12/22 22:09 07/13/22 06:08 Labs: Laboratory Results - last 24 hr 07/12/22 07/12/22 07/12/22 22:09 22:09 22:09 MCV 97.2 MCH 32.9 MCHC 33.9 RDW 12.6 Plt Count 237 MPV 9.8 Immature Gran % (Auto) 0.3 Neut % (Auto) 70.2 Lymph % (Auto) 20.3 [place] % (Auto) 7.4 Eos % (Auto) 0.9 Baso % (Auto) 0.9 Lymph # (Auto) 1.5 [place] # (Auto) 0.6 Eos # (Auto) 0.1 Baso # (Auto) 0.1 Abs Immat Gran (auto) 0.02 Absolute Neuts (auto) 5.3 Absolute Nucleated RBC 0.000 Nucleated RBC % (auto) 0.0 PT 10.8 INR 0.9 APTT 28.7 Anion Gap Estim Creat Clear Calc Estimated GFR Random Glucose Calcium Magnesium Total Bilirubin AST ALT Alkaline Phosphatase Troponin I High Sens 7.3 B-Natriuretic Peptide Total Protein Albumin TSH 07/12/22 07/12/22 07/13/22 22:09 22:09 06:08 MCV MCH MCHC RDW Plt Count MPV Immature Gran % (Auto) Neut % (Auto) Lymph % (Auto) [place] % (Auto) Eos % (Auto) Baso % (Auto) Lymph # (Auto) [place] # (Auto) Eos # (Auto) Baso # (Auto) Abs Immat Gran (auto) Absolute Neuts (auto) Absolute Nucleated RBC Nucleated RBC % (auto) PT INR APTT Anion Gap 13 11 L Estim Creat Clear Calc 64.4 98.7 Estimated GFR 52 > 60 Random Glucose 108 93 Calcium 9.2 9.0 Magnesium 1.8 Total Bilirubin 0.5 0.6 AST 14 13 ALT 12 10 Alkaline Phosphatase 41 35 L Troponin I High Sens B-Natriuretic Peptide 14 Total Protein 6.4 L 6.1 L Albumin 4.1 3.9 TSH 1.12 Assessment and Plan (1) Paroxysmal atrial fibrillation: Status: Acute Plan 61-year-old male with past medical history of hyperlipidemia, MCKENNA on CPAP-? noncompliance presents to the hospital with complaints of dizziness found to have AFib with RVR new onset AFib with RVR -? CHADsVasc score of 0 -? patient on Cardizem for rate control -? cardiology consult id -? echocardiogram -? admit to telemetry given flecainde ,continue dilatizem drip -hr 100-110 range , npo past midnight for possible cardioversion MCKENNA-? CPAP at bedtime bladder outlet obstruction-? continue tamsulosin ?DVT prophylaxis:? Early ambulation Time Spent With Patient Time: Total time managing care of this patient today ____ minutes. Quality Stroke Does the patient have a stroke diagnosis?: No VTE Prior VTE?: No VTE Risk Level:: Medical - moderate - high VTE Device Contraindication: Treatment Not Indicated VTE Drug Contraindication: N/A - Med Ordered
--- NOTE | 2022-07-13 20:26 | PC.NURSE ---
This service writer assumed care of this Pt at 1900. Pt A&Ox4, denies any pain. Pt currently on Cardizem drip running at 15 mg, HR 92-98. RN to RN report given to Alexis, Pt will be transported to room 460, Pt and significant other aware of plan.
[2022-07-13] MEDS: dilTIAZem HCL 125 MG in 0.9 % Sodium Chloride 100 ML 15 MG IVCONT (22:08)
--- NOTE | 2022-07-14 | ECG_ITS ---
Test Reason : AFIB CONVERTED TO NS Blood Pressure : / mmHG Vent. Rate : 080 BPM Atrial Rate : 080 BPM P-R Int : 184 ms QRS Dur : 098 ms QT Int : 394 ms P-R-T Axes : 035 -07 031 degrees QTc Int : 454 ms Normal sinus rhythm Nonspecific T wave abnormality Abnormal ECG When compared with ECG of 12-JUL-2022 22:04, Sinus rhythm has replaced Atrial fibrillation T wave inversion now evident in Anterior leads Referred By: Mario Campbell Electronically Signed By:ZURDO AKT MD
[2022-07-14 03:02] VITALS: BP 128/84; PULSE 125; RESP 20; TEMP 36.2; O2SAT 97
[2022-07-14] MEDS: dilTIAZem HCL 125 MG in 0.9 % Sodium Chloride 100 ML IVCONT (06:36)
[2022-07-14 07:54] VITALS: BP 122/83; PULSE 87; RESP 20; TEMP 36.8; O2SAT 97
[2022-07-14] MEDS: Apixaban 5 MG TABLET PO (09:52)
[2022-07-14] MEDS: Metoprolol Succinate ER 25 MG TAB.ER.24H PO (10:24)
--- NOTE | 2022-07-14 10:41 | PM.PNCARD ---
Subjective Subjective Date of Service: 07/14/22 Principal diagnosis: paroxysmal atrial fibrillation. Interval history: Patient converted back to sinus rhythm this morning with a pause of 2.9 seconds. No symptoms related to it. Feels better. Echocardiogram shows low normal LV systolic function with mild right ventricular enlargement. Review of Systems Constitutional: Reports no additional constitutional complaints Physical Exam Vital Signs: Last Vital Signs Temp 98.3 F 07/14/22 07:54 Pulse 87 07/14/22 07:54 Resp 20 07/14/22 07:54 BP 122/83 07/14/22 07:54 Pulse Ox 97 07/14/22 07:54 O2 Del Method Room Air 07/14/22 07:54 BMI result Body Mass Index 29.5 Const General: cooperative, comfortable, no acute distress, alert, awake and anxious Nutritional Appearance: overweight Orientation/consciousness: patient oriented x3 Limitations: no limitations Neck Neck: Yes trachea midline and Yes no JVD Chest Chest palpation & inspection: normal inspection of the chest Resp Effort & Inspection: normal respiratory effort Auscultation: clear to auscultation bilaterally Cardio Jugular venous distension: no JVD Rate: regular rate Rhythm: regular rhythm Heart sounds: S1 normal heart sound present, S2 normal heart sound present, no click, no gallops, no murmurs and no rubs GI Auscultation: normal bowel sounds Neuro General: patient oriented x3 and no focal motor deficits Extrem General: Yes no clubbing, cyanosis or edema Psych Appearance: grossly normal Affect: Anxious affect present Objective Labs and Meds 07/12/22 22:09 07/13/22 06:08 Progress Note: A&P Assessment and plan (1) Paroxysmal atrial fibrillation: Status: Acute Assessment and Plan: symptomatic paroxysmal atrial fibrillation this middle-aged man most likely due to untreated sleep apnea current time along with alcohol use. Advised to restart CPAP therapy. Also avoid alcohol use completely. Advised to use Eliquis 5 mg b.i.d. for about a month. Will follow-up after Holter monitor in 4 weeks time. If he has no significant recurrent atrial fibrillation, will not require long-term oral anticoagulation therapy as his CHADSVASc score is 0. will obtain outpatient myocardial perfusion imaging to assess for coronary disease and guide for therapy for antiarrhythmic drugs. Start Toprol-XL 25 mg a day to his regimen. Will follow up in the clinic in 4 weeks time. Patient can be discharged home today Time Spent With Patient Time: Total time managing care of this patient today ____ minutes. Progress Note: Quality Stroke Does the patient have a stroke diagnosis?: No Procedures Date of Service Date of Service: 07/14/22
[2022-07-14 11:26] VITALS: BP 125/88; PULSE 82; RESP 20; TEMP 36.2; O2SAT 95
--- NOTE | 2022-07-14 12:11 | MHC.CM.PN ---
Patient has been medically cleared for dc to home today, self care.
--- NOTE | 2022-07-14 12:25 | P.DS_ITS ---
DS: Providers Provider Date of Service: 07/14/22 Date of admission: 07/13/22 08:55 Date of discharge: 07/14/22 Primary care physician: CHLOE Benedict Consults: 07/12/22 23:47 Consult to Cardiology Routine Consulting Provider: [facility] Reason for consultation: new opnset A fib Has provider been notified: No Attending physician on discharge: Mario Campbell Discharging clinician: Mario Campbell DS: Diagnosis Discharge Diagnosis (1) Paroxysmal atrial fibrillation: Status: Acute DS: Summary Hospital Course Hospital Course: 61-year-old male past medical history of GERD, BPH, MCKENNA? not compliant with CPAP, hyperlipidemia, presents to the hospital with complaints of dizzy spells.? Patient reports started earlier in the day, had several episodes of feeling dizzy, denies any palpitations, no fluttering in the chest, no chest pain,? but has been feeling slightly short of breath, no abdominal pain nausea or vomiting, no diarrhea constipation, no urinary symptoms and no lower extremity edema. ? denies any previous similar episode On arrival to the ED patient noted to have a heart rate of 200 per ED physician although not documented, patient currently on Cardizem drip with heart rate of 110 ?labs otherwise unremarkable, TSH of 1.12, troponin negative,? BNP negative ?EKG shows AFib with RVR. Hospital course: Patient was admitted afib with RVR,with complaints of dizziness found to have AFib with RVR-started on heart rate control medication IV diltiazem and subsequently also given flecainide. patient heart rate is converted to sinus rhythm, currently asymptomatic. Patient seen by Cardiology-recommended to switch to p.o. metoprolol upon discharge also recommended Eliquis 5 mg p.o. b.i.d. for a month, further use out patiently as per cardiology. Patient was strongly advised to abstain from alcohol use. Above management discussed with the patient and his at bedside in detail length. Time Spent with Patient Time attestation: Total time managing care of this patient today ____ minutes. Discharge coordination time: Greater than 30 minutes Quality: Safe Use of Opioids Does Pt have an Active Cancer Diagnosis on the Problem List?: No Quality: Stroke Does the patient have a stroke diagnosis?: No Physical Exam Vital Signs: Vital Signs: Last Vital Signs Temp 97.1 F 07/14/22 11:26 Pulse 82 07/14/22 11:26 Resp 20 07/14/22 11:26 BP 125/88 07/14/22 11:26 Pulse Ox 95 07/14/22 11:26 O2 Del Method Room Air 07/14/22 11:26 BMI result Body Mass Index 29.5 Appearance: Alert.? Oriented X3.? not in distress.? cvs: rrr, [id number] . res: clear to auscultation ,no rhonchii or wheezing abd: no rebound or guarding ,nt, bs present. ext pulses present , no cyanosis . neuro: axo3 , nonfocal. Discharge Plan Discharge Anticipated Discharge Date/Time: 07/14/22 12:02 Patient Disposition: Home, Self-Care Discharge Diagnosis: afib rvr Referrals: Bladimir Pinzon FNP-BC [Primary Care Provider] - 1 Week Discharge Medications: New Eliquis 5 mg Tablet 5 mg PO BID Qty: 60 0RF metoprolol succinate [Toprol XL] 25 mg tablet extended release 24 hr 25 mg PO DAILY Qty: 30 0RF Continued fenofibrate 160 mg tablet 160 mg PO DAILY 90 Days Qty: 90 2RF amitriptyline 10 mg tablet 10 mg PO BEDTIME 30 Days Qty: 30 2RF venlafaxine 150 mg capsule,extended release 24hr 150 mg PO DAILY tamsulosin 0.4 mg capsule 0.4 mg PO BEDTIME hydrocodone-homatropine 5-1.5 mg/5 mL syrup 10 ml PO Q6H PRN (Reason: Cough) omeprazole 20 mg capsule,delayed release(DR/EC) 20 mg PO DAILY Qty: 90 2RF Discharge Orders: Discharge Order (Routine); Ordered 07/14/22 Ordered By: Mario Campbell Diet: Advance to usual diet Activity on Discharge: As tolerated Stand Alone Forms: Patient Portal Discharge page Care Plan Goals: Patient was admitted afib with RVR,with complaints of dizziness found to have AFib with RVR-started on heart rate control medication IV diltiazem and subsequently also given flecainide. patient heart rate is converted to sinus rhythm, currently asymptomatic. Patient seen by Cardiology-recommended to switch to p.o. metoprolol upon discharge also recommended Eliquis 5 mg p.o. b.i.d. for a month, further use out patiently as per cardiology. Patient was strongly advised to abstain from alcohol use. Above management discussed with the patient and his at bedside in detail length. Health Concerns: As above. Plan of Treatment: As above. Assessment: As above. Patient Instructions: A-fib (Atrial Fibrillation) (DC)
--- NOTE | 2022-07-14 12:28 | MHC.CM.PN ---
Per MD's request, [employer] has provided Patient with a 30 day free trial Eliquis coupon.
== END 2022-07-14 13:08 | disposition home or self-care (01) | DRG 201 ==
LOC: HO.ED 23:50 → HO.EDOVER 23:57 → HO.IMC 07-13 19:10
PROVIDERS: Admitting Provider Internal Medicine; Emergency Provider Internal Medicine; PCP Nurse Practitioner Family; Visit Provider Internal Medicine
DX: I48.0 Paroxysmal atrial fibrillation (principal); N13.8 Other obstructive and reflux uropathy; E78.5 Hyperlipidemia, unspecified; G47.33 Obstructive sleep apnea (adult) (pediatric); N40.1 Benign prostatic hyperplasia with lower urinary tract symptoms; K21.9 Gastro-esophageal reflux disease without esophagitis; Z87.891 Personal history of nicotine dependence; Z91.199 Patient's noncompliance with other medical treatment and regimen due to unspecified reason; Z88.0 Allergy status to penicillin; Z79.01 Long term (current) use of anticoagulants; Z79.899 Other long term (current) drug therapy
CPT/HCPCS: 36415; 80053; 83735; 83880; 84443; 84484; 85025; 85610; 85730; 93005; 93306; 99222; 99285; Q9957

== ENCOUNTER → 2022-07-29 15:06 | Outpatient (BNVA) | payer BC, SELFPAY | PROVIDERS: PCP Nurse Practitioner Family; Visit Provider Nurse Practitioner Family ==

== ENCOUNTER → 2022-08-03 08:17 | Outpatient (REF) | payer BC, SELFPAY ==
--- NOTE | ~2022-08-03 | NM_ITS ---
EXERCISE MYOCARDIAL PERFUSION STUDY INDICATION: Coronary artery disease, assess for ischemia TECHNIQUE: The patient was brought in for an exercise perfusion study on 08/03/2022. Patient performed exercise as per Martinez protocol and was injected 30 mCi of sestamibi once target heart rate was achieved. Images were obtained using the SPECT gamma camera interlaced with the gating device. Images were obtained in supine position. Resting perfusion study was performed on 08/06/2022. Patient was administered 30 mCi of sestamibi intravenously at rest. Images were then obtained in supine position. Images were processed with the software and compared side to side in short axis, horizontal long axis and vertical long axis views. Total DLP 104mGy-cm. FINDINGS: Raw images were reviewed. The stress perfusion study showed minimally decreased tracer uptake in the distal part of inferior wall near the inferior apex. With CT attenuation correction, no major changes. Possibly artifactual. The gated study shows normal LV systolic function with calculated LVEF of 66%. LV cavity is normal in size. The gated study shows normal wall thickening and contraction of segments. Resting study shows minimally reduced tracer uptake in the apical part of inferolateral wall. Somewhat similar to the stress acquisition. No major changes with CT attenuation correction. Gating at rest reveals normal wall motion with ejection fraction at 69%. The findings are consistent with mild fixed apical inferior/inferolateral defect, possibly artifactual as the contractility is normal. NM/NM cardiolite stress test IMPRESSION: 1. Myocardial perfusion imaging study shows no clear evidence of any ischemia or infarction. Probably normal perfusion. 2. Gated LVEF is 66% during stress and 69% during rest. 3. Transient ischemic dilatation not present. EKG component of the test reported separately.
--- NOTE | 2022-08-03 08:20 | HM_ITS ---
* Total monitoring time about 6 days. * Underlying rhythm is sinus. Average ventricular rate 73/Min. Range 42- 131/Min. * Rare supraventricular and ventricular ectopy with minimal burden. * No sustained arrhythmias. * No significant pauses or AV blocks. * Patient marker used once in association with sinus rhythm. No diary events. MTDD
--- NOTE | 2022-08-03 08:20 | CA_ITS ---
Acquisition Time: 2022-08-03 08:29:45 Total Exercise Time: 00:06:00 Test Indications: FM HX HEART DIS. PAF Medications: Protocol: ALICE Max HR: 137 BPM 86% of Pred: 159 BPM Max BP: 164/084 mmHG Max Work Load: 7.0 METS Exercise stress test with exercise 6 min of Alice protocol, achieving 86% MPHR, with report of fatigue and need to stop, without anginal symptoms, without arrythmia, with normotensive response to exercise, without EKG changes meeting critieria for ischemia. Nuclear images pending. Test reviewed with Dr Allen Referred By: José Manuel Allen Overread By: KATE NUNEZ
== END ==
LOC: HO.CARD 08:17
PROVIDERS: PCP Nurse Practitioner Family; Visit Provider Internal Medicine Cardiovascular Disease
DX: I48.0 Paroxysmal atrial fibrillation (principal); Z82.49 Family history of ischemic heart disease and other diseases of the circulatory system
CPT/HCPCS: 78452; 93017; 93242; A9500

== ENCOUNTER → 2022-08-31 08:36 | Outpatient (BNVA) | payer BC, SELFPAY | PROVIDERS: PCP Nurse Practitioner Family; Referring Provider Nurse Practitioner Family; Visit Provider Internal Medicine Cardiovascular Disease ==

== ENCOUNTER 2022-11-16 14:22 | Outpatient (AMB) | payer BC, SELFPAY ==
--- NOTE | 2022-11-16 14:24 | MHC.OFFVIS ---
Intake Intake Visit Reasons: Bladder outlet obstruction- yearly follow up Intake Note: Patient is present for Telephone Urology Med: Tamsulosin Antibiotic Allergy: Penicillins Blood Thinner: None Pharmacy: [facility] Allergies celecoxib [From CELEBREX] Allergy (Unknown, Verified 11/16/22 14:27) HIVES penicillin G Allergy (Unknown, Verified 11/16/22 14:27) rash, swelling penicillin V Allergy (Unknown, Verified 11/16/22 14:27) hives Penicillins [PENICILLINS] Allergy (Unknown, Verified 11/16/22 14:27) HIVES Medication List - Last Reconciled 11/16/22 by Víctor Ha MD fenofibrate 160 mg PO DAILY hydrocodone-homatropine 5-1.5 mg/5 mL 10 mL PO Q6H PRN magnesium oxide 0 mg PO omeprazole 20 mg PO DAILY riboflavin (vitamin B2) 400 mg PO DAILY 30 days tamsulosin 0.4 mg PO BEDTIME 90 days ubrogepant (Ubrelvy) 50 - 100 mg PO ONCE PRN venlafaxine ER 150 mg PO DAILY HPI HPI Comments History of Present Illness Details Nehemiah GONZALES is a very pleasant male. He is a patient of Dr Cao. He is seen for the following urologic conditions. - lower urinary tract symptoms Telemedicine Evaluation 15 min Consultation Doximity Saumya Video attempted Stable voiding parameters He did run out of medications and within 2-3 days was acutely aware of weakness of stream Discussed potential prostate incision for symptom progression Twelve month follow-up Lower Urinary Tract Symptoms:? PVR today 0cc ? Current visit is for?further evaluation of, lower urinary tract symptoms, predominate irritative symptoms, ?- was concerned he had a UTI.? Current treatment includes?tamsulosin ? Prostate Symptom Score?01/29 , Moderate (9-19), Bother 3.? Symptoms include?01/29 , frequency, urgency, nocturia (>2), and are progressing.? PSA?07/31 0.74, 11/02 1.0 ? Prostate volume?30-50gm.? Testing at next visit will include?bladder scan.? [facility] Medical History Atrial fibrillation with rapid ventricular response Bladder outlet obstruction Nocturia MCKENNA (obstructive sleep apnea) Pulmonary nodules Weak urinary stream Surgical History H/O wrist surgery History of surgery Leukoplakia Family History Father CVD (cardiovascular disease) Alzheimer's disease Dementia Substance use disorder Abdominal aortic aneurysm (AAA) Mother Infection of spine Substance use disorder Paternal Aunt Diabetes mellitus Brother Abdominal aortic aneurysm (AAA) Sister Abdominal aortic aneurysm (AAA) Sister Heart aneurysm Sister No problems noted. Sister No problems noted. Social History Household Members: Spouse Housing: House Do you presently have visiting nurse or other home services: No Alcohol intake: former Patient Tobacco Use Status: Former Tobacco user Tobacco use type: Cigarette Years Smoked: 25 years e-Cigarette/Vaping Use: Never Used Second Hand Smoke Exposure: No service: Yes Current occupational status: employed Current occupation: [employer] Current occupational exposures/hazards: No Cognitive needs: No Hearing needs: No Vision needs: No Review of Systems Const All systems reviewed & are unremarkable except as noted in HPI and below Reports no additional complaints Resp Reports no additional complaints GI Reports no additional complaints Reports as per HPI Musc Reports no additional complaints Physical Exam Telemedicine evaluation Appropriate responses Regular breathing rate and rhythm HEENT Head: Yes normal to inspection Ears: hearing grossly normal bilaterally Eyes General: appearance normal, both eyes and all related structures Neck Neck: Yes normal visual inspection Chest Chest palpation & inspection: normal inspection of the chest Resp Effort & Inspection: normal respiratory effort and able to speak in complete sentences Assessment & Plan Assessment & Plan (1) Bladder outlet obstruction: Code(s): N32.0 - Bladder-neck obstruction Plan Twelve month follow-up PVR Patient Instructions: Imaging studies, laboratory and physical exam results were discussed and reviewed in detail. No major barriers to patient understanding were identified. An opportunity to ask questions regarding the treatment plan was provided. All questions were answered. The patient expressed understanding and agreement with the above treatment plan. The patient is aware they should contact our office by phone for worsening of their current condition or the appearance of new urologic symptoms. Compliance is encouraged with any medications and followup testing that is ordered. It is a privilege to participate in the urologic care of your patient. If you have any questions or concerns regarding treatment for the above conditions, or other urologic issues, please do not hesitate to contact me. The office telephone contact is [phone]. This note is constructed using voice recognition software. While every effort has been made to ensure accuracy health technical writer errors may have been included. Yours sincerely, Dr Víctor Ha MD, [facility] - Urology Providers of Expert, Compassionate Care for the Genitourinary System Telehealth Telehealth Location of provider rendering services: practice address Location of patient: address on file Patient Identification confirmed using: Name, : Yes Telehealth method: video Patient verbally consented to treatment: Yes Patient verbally consented to billing insurance company: Yes Patient informed of any privacy concerns related to visit: Yes Coding Level of Care Code Tele Est Pt Level 4 (44808) Diagnoses Bladder outlet obstruction N32.0
== END 2022-11-16 15:21 | disposition home or self-care (01) ==
LOC: HO.HUSH 14:22
PROVIDERS: PCP Nurse Practitioner Family; Visit Provider Urology
DX: N32.0 Bladder-neck obstruction (principal)
CPT/HCPCS: 99213

== ENCOUNTER → 2022-11-16 14:22 | Outpatient (BNVA) | payer BC, SELFPAY | PROVIDERS: PCP Nurse Practitioner Family; Visit Provider Urology ==

== ENCOUNTER 2022-11-23 12:06 | Outpatient (AMB) | payer BC, SELFPAY ==
--- NOTE | 2022-11-23 14:03 | MHC.OFFWIV ---
Intake Vital Signs 11/23/22 14:04 Weight 206 lb BP 114/80 Blood Pressure Location Lt brachial Position Sitting Pulse 85 Pulse Source Pulse Oximeter Pulse Oximetry (%) 98 Oxygen Delivery Method Room Air Intake Visit Reasons: EST/neck pain Intake Note: Patient here for neck pain that has been present for about 1 week, he mentions that it started off on the left side and last night it has radiated to the right side. Patient Tobacco Use Status: Former Tobacco user Allergies celecoxib [From CELEBREX] Allergy (Unknown, Verified 11/23/22 14:39) HIVES penicillin G Allergy (Unknown, Verified 11/23/22 14:39) rash, swelling penicillin V Allergy (Unknown, Verified 11/23/22 14:39) hives Penicillins [PENICILLINS] Allergy (Unknown, Verified 11/23/22 14:39) HIVES Medication List - Last Reconciled 11/23/22 by Mikel Mariscal MD cyclobenzaprine 10 mg PO BEDTIME fenofibrate 160 mg PO DAILY hydrocodone-homatropine 5-1.5 mg/5 mL 10 mL PO Q6H PRN magnesium oxide 0 mg PO meloxicam 15 mg PO DAILY omeprazole 20 mg PO DAILY riboflavin (vitamin B2) 400 mg PO DAILY 30 days tamsulosin 0.4 mg PO BEDTIME 90 days ubrogepant (Ubrelvy) 50 - 100 mg PO ONCE PRN venlafaxine ER 150 mg PO DAILY Do you need a note to return to daycare/school/sports/work: No HPI EST/neck pain HPI Details 62-year-old male presents to the office for a sick visit. Patient is complaining of pain symptoms in the neck. Symptoms started a week ago. No fall or injury prior to the onset of symptoms. Patient is experiencing pain and discomfort when he moves the head sideways. [facility] Medical History Atrial fibrillation with rapid ventricular response Bladder outlet obstruction Nocturia MCKENNA (obstructive sleep apnea) Pulmonary nodules Weak urinary stream Surgical History H/O wrist surgery History of surgery Leukoplakia Family History Father CVD (cardiovascular disease) Alzheimer's disease Dementia Substance use disorder Abdominal aortic aneurysm (AAA) Mother Infection of spine Substance use disorder Paternal Aunt Diabetes mellitus Brother Abdominal aortic aneurysm (AAA) Sister Abdominal aortic aneurysm (AAA) Sister Heart aneurysm Sister No problems noted. Sister No problems noted. Social History Household Members: Spouse Housing: House Do you presently have visiting nurse or other home services: No Alcohol intake: former Patient Tobacco Use Status: Former Tobacco user Tobacco use type: Cigarette Years Smoked: 25 years e-Cigarette/Vaping Use: Never Used Second Hand Smoke Exposure: No service: Yes Current occupational status: employed Current occupation: [employer] Current occupational exposures/hazards: No Cognitive needs: No Hearing needs: No Vision needs: No Physical Exam Vital Signs: Last Vital Signs Pulse 85 11/23/22 14:04 BP 114/80 11/23/22 14:04 Pulse Ox 98 11/23/22 14:04 Oxygen Delivery Method Room Air 11/23/22 14:04 Const General: cooperative and healthy appearing Nutritional Appearance: well nourished Orientation/consciousness: patient oriented x3 Limitations: no limitations HEENT Head: Yes normal to inspection Eyes General: appearance normal, both eyes and all related structures Neck Other: Bilateral trapezius muscle tenderness. Pain on lateral motion of the head towards either side of the neck. Neck: Yes normal visual inspection Chest Chest palpation & inspection: normal palpation of entire chest wall Resp Effort & Inspection: normal respiratory effort Neuro General: patient oriented x3 Assessment & Plan Assessment & Plan (1) Sprain of cervical neck: Code(s): S13.9XXA - Sprain of joints and ligaments of unspecified parts of neck, initial encounter Qualifiers: Encounter type: initial encounter Qualified Code(s): S13.9XXA - Sprain of joints and ligaments of unspecified parts of neck, initial encounter Plan: Muscle relaxant and anti-inflammatories called in. If symptoms do not improve to follow-up here. Medications: New meloxicam 15 mg PO DAILY 14 tabs 0RF cyclobenzaprine 10 mg PO BEDTIME 14 tabs 0RF Coding Level of Care Code Est Pt Level 3 (24049) Diagnoses Neck sprain, initial encounter S13.9XXA Encounter type: initial encounter
[2022-11-23 14:04] VITALS: BP 114/80; PULSE 85; O2SAT 98
== END 2022-11-23 14:51 | disposition home or self-care (01) ==
PROVIDERS: PCP Nurse Practitioner Family; Visit Provider Internal Medicine
DX: S13.9XXA Sprain of joints and ligaments of unspecified parts of neck, initial encounter (principal)
CPT/HCPCS: 99213

== ENCOUNTER 2022-12-07 10:56 | Outpatient (AMB) | payer BC, SELFPAY ==
--- NOTE | 2022-12-07 11:00 | MHC.PC.OV ---
Vital Signs 12/07/22 11:01 Height 5 ft 10 in Weight 214 lb 6 oz BMI 30.8 BP 124/86 Blood Pressure Location Rt brachial Position Sitting Pulse 92 Pulse Source Pulse Oximeter Pulse Oximetry (%) 98 Oxygen Delivery Method Room Air Intake Visit Reasons: Annual PE Allergies celecoxib [From CELEBREX] Allergy (Unknown, Verified 12/07/22 11:02) HIVES penicillin G Allergy (Unknown, Verified 12/07/22 11:02) rash, swelling penicillin V Allergy (Unknown, Verified 12/07/22 11:02) hives Penicillins [PENICILLINS] Allergy (Unknown, Verified 12/07/22 11:02) HIVES Tobacco use date assessed: 12/07/22 Dental Screening Dental Screen Date: 12/07/22 Did you have a dental visit in the last 12 months?: Yes Did you have a dental problem in the last 6 months where you did not have access to dental care?: No Was dental information given to patient?: Patient has dentist HPI Annual PE HPI Details Pt is here for a PE. Will order labs. Colon screen is up to date. Due for PSA, will order. Denies dribbling with urination, weak stream, and frequent nocturia. Pt sees urology. Pt also follows up with cardiology due to paroxysmal afib. [facility] Medical History Atrial fibrillation with rapid ventricular response Bladder outlet obstruction Nocturia MCKENNA (obstructive sleep apnea) Pulmonary nodules Weak urinary stream Surgical History H/O wrist surgery History of surgery Leukoplakia Family History Father CVD (cardiovascular disease) Alzheimer's disease Dementia Substance use disorder Abdominal aortic aneurysm (AAA) Mother Infection of spine Substance use disorder Paternal Aunt Diabetes mellitus Brother Abdominal aortic aneurysm (AAA) Sister Abdominal aortic aneurysm (AAA) Sister Heart aneurysm Sister No problems noted. Sister No problems noted. Social History Household Members: Spouse Housing: House Do you presently have visiting nurse or other home services: No Alcohol intake: former Patient Tobacco Use Status: Former Tobacco user Tobacco use type: Cigarette Years Smoked: 25 years e-Cigarette/Vaping Use: Never Used Second Hand Smoke Exposure: No service: Yes Current occupational status: employed Current occupation: [employer] Current occupational exposures/hazards: No Cognitive needs: No Hearing needs: No Vision needs: No Questionnaire Thrive Questionnaire Date Thrive assessed: 10/08/20 Review of Systems Const Denies chills and Denies fever(s) Eyes Denies blurry vision ENT Denies vertigo, Denies dizziness and Denies sore throat Card Denies chest pain at rest, Denies chest pain with activity, Denies diaphoresis, Denies dyspnea and Denies dyspnea on exertion Resp Denies cough, Denies dyspnea, Denies dyspnea on exertion and Denies wheezing GI Denies abdominal pain, Denies melena, Denies hematochezia, Denies constipation, Denies diarrhea and Denies loose stools Denies hematuria Musc Denies numbness and Denies tingling Skin/Breast Denies lesions Neuro Denies vertigo, Denies dizziness, Denies numbness and Denies tingling Psych Denies anxiety, Denies depression, Denies homicidal ideation, Denies suicidal ideation and Denies other (substance abuse) Aller/Immun Denies wheezing Physical exam (Primary Care) Vital Signs: Last Vital Signs Pulse 92 12/07/22 11:01 BP 124/86 12/07/22 11:01 Pulse Ox 98 12/07/22 11:01 Oxygen Delivery Method Room Air 12/07/22 11:01 BMI result Body Mass Index 30.8 Tobacco/Smoking Status: Tobacco use Status Tobacco use date assessed 12/07/22 12/07/22 11:05 Patient Tobacco Use Status Former Tobacco user 12/07/22 11:05 Tobacco use type Cigarette 12/07/22 11:05 e-Cigarette/Vaping Use Never Used 12/07/22 11:05 Thrive Assessment: Date of Thrive Assessment Date Thrive assessed 10/08/20 12/07/22 11:05 Const General: cooperative Nutritional Appearance: well nourished Orientation/consciousness: patient oriented x3 HENMT Head: Yes normal to inspection, Yes normocephalic and Yes atraumatic Ears: TM's normal bilaterally Eyes General: appearance normal, both eyes and all related structures Alignment and Position: alignment normal and position normal Neck Neck: Yes normal visual inspection and Yes no lymphadenopathy Thyroid: Thyroid normal Resp Effort & Inspection: normal respiratory effort Auscultation: clear to auscultation bilaterally Cardio Rate: regular rate Rhythm: regular rhythm Heart sounds: S1 normal heart sound present, S2 normal heart sound present and no murmurs GI Other: small umbilical hernia noted Palpation (GI): Soft to palpation and nontender Auscultation: normal bowel sounds Male General Exam: Yes normal external exam Penis: normal penis Scrotum: scrotum normal, testes descended bilaterally and no inguinal hernias Testes: no testicular mass Skin Rashes: no rashes Neuro General: patient oriented x3, moves all extremities, no focal motor deficits and deep tendon reflexes 2+ bilaterally Romberg Test: Negative Extrem Right lower extremity: no edema Left lower extremity: no edema Psych Appearance: grossly normal Mental Status: mental status grossly normal Speech and movement: Normal speech and movement present Affect: normal affect Attitude: cooperative Thought process: Normal thought process present Thought content: Normal thought content present Insight: Good insight present (Psych) Judgement: Good judgement present (Psych) Immunizations pneumoc 20-ana conj-dip cr(PF) 0.5 mL IM syringe Performing Provider: CHLOE Agneles Performing Location: [facility] Administered by: Jaye Lowe CMA on 12/07/22 11:33 Dose Route Admin Location Dispensed Lot Number Expiration Date [employer] 0.5 mL IM Right Deltoid 0.5 mL [id number] 01/11/24 [id number] [employer] Cardiovascular VIS Given Date VIS Provided VIS Publication Date 12/07/22 Single Vaccine 21 Eligibility Eligibility Date Funding Source Not [facility] Eligible 12/07/22 Private Assessment and Plan Assessment & Plan (1) Physical exam: Code(s): Z00.00 - Encounter for general adult medical examination without abnormal findings Plan: Labs ordered (2) Screening for prostate cancer: Code(s): Z12.5 - Encounter for screening for malignant neoplasm of prostate Plan: PSA ordered Plan The patient agreed to the use of a lead medical technologist for this encounter. Scribed for CHLOE Parsons by giles Ortiz scribe, on 12/07/2022 at 11:15 EST. Orders: Orders Complete Blood Count Auto Diff Today Z00.00 - Encounter for general adult medical examination without abnormal findings TSH reflex Free T4 Today Z00.00 - Encounter for general adult medical examination without abnormal findings UA CC w/rflx Micro + Cult Today Z00.00 - Encounter for general adult medical examination without abnormal findings Lipid Panel Today Z00.00 - Encounter for general adult medical examination without abnormal findings Prostate Specific Antigen Scr Today Z12.5 - Encounter for screening for malignant neoplasm of prostate Comprehensive [place]. Panel Fast Today Z00.00 - Encounter for general adult medical examination without abnormal findings Pneumococcal 20 Immunization Today Z23 - Encounter for immunization Coding Level of Care Code Est Pt Prev Care 40-64y(26520) Diagnoses Physical exam Z00.00 Screening for prostate cancer Z12.5
[2022-12-07 11:01] VITALS: BP 124/86; PULSE 92; O2SAT 98; BMI 30.8
== END 2022-12-07 11:27 | disposition home or self-care (01) ==
PROVIDERS: Visit Provider Nurse Practitioner Family
DX: Z00.00 Encounter for general adult medical examination without abnormal findings (principal); Z12.5 Encounter for screening for malignant neoplasm of prostate; Z23 Encounter for immunization
CPT/HCPCS: 90471; 90677; 99396

== ENCOUNTER 2023-02-24 09:42 | Outpatient (AMB) | payer BC, SELFPAY ==
--- NOTE | 2023-02-24 09:44 | A.OFFVIS_ITS ---
Intake Vital Signs 02/24/23 09:45 Height 5 ft 10 in Weight 210 lb BMI 30.1 BP 130/82 Blood Pressure Location Rt brachial Position Sitting Pulse 96 Pulse Source Pulse Oximeter Pulse Oximetry (%) 96 Oxygen Delivery Method Room Air Intake Visit Reasons: follow up - LVM Intake Note: Patient presents for follow up. I cant get it to work properly it wont shut off. Allergies celecoxib [From CELEBREX] Allergy (Unknown, Verified 02/24/23 09:47) HIVES penicillin G Allergy (Unknown, Verified 02/24/23 09:47) rash, swelling penicillin V Allergy (Unknown, Verified 02/24/23 09:47) hives Penicillins [PENICILLINS] Allergy (Unknown, Verified 02/24/23 09:47) HIVES HPI HPI Comments History of Present Illness Details 62-yr-old male presents for f/u visit. Pt denies any significant interval medical changes. Pt reports he is still having episodes of migraine visual aura- lasting 15-20 minutes. Visual aura is not always a/w headache. He has no indication when visual aura will be or won't be f/b headache. Headaches have not been as severe. Having 2-3 attacks per month. Ubrelvy helps but has not used recently as attacks have been less severe. He remains curious why he has these attacks. He has not been using his BiPAP device in a few days. States the BiPAP does not automatically shut off when removed and does not turn off when he presses the power button. He states he does not need to see Dr Stover anymore- denies any pulmonary d/o's. He does not know his BiPAP settings, but states he sleeps well when he is able to use it. [facility] Medical History (Updated 02/24/23 @ 12:53 by RHEA Jarvis) Atrial fibrillation with rapid ventricular response Pulmonary nodules Bladder outlet obstruction Nocturia Weak urinary stream MCKENNA (obstructive sleep apnea) Surgical History H/O wrist surgery History of surgery Leukoplakia Family History Father CVD (cardiovascular disease) Alzheimer's disease Dementia Substance use disorder Abdominal aortic aneurysm (AAA) Mother Infection of spine Substance use disorder Paternal Aunt Diabetes mellitus Brother Abdominal aortic aneurysm (AAA) Sister Abdominal aortic aneurysm (AAA) Sister Heart aneurysm Sister No problems noted. Sister No problems noted. Social History Household Members: Spouse Housing: House Do you presently have visiting nurse or other home services: No Alcohol intake: former Patient Tobacco Use Status: Former Tobacco user Tobacco use type: Cigarette Years Smoked: 25 years e-Cigarette/Vaping Use: Never Used Second Hand Smoke Exposure: No service: Yes Current occupational status: employed Current occupation: [employer] Current occupational exposures/hazards: No Cognitive needs: No Hearing needs: No Vision needs: No Review of Systems Const All systems reviewed & are unremarkable except as noted in HPI and below Physical Exam Vital Signs: Last Vital Signs Pulse 96 02/24/23 09:45 BP 130/82 02/24/23 09:45 Pulse Ox 96 02/24/23 09:45 Oxygen Delivery Method Room Air 02/24/23 09:45 BMI result Body Mass Index 30.1 Const General: cooperative and no acute distress Orientation/consciousness: patient oriented x3 HEENT Head: Yes normocephalic Resp Effort & Inspection: normal respiratory effort and able to speak in complete sentences Neuro General: patient oriented x3, gait normal and CN's II-XI intact bilaterally Cognition (Neuro): normal cognition Motor exam (neuro): 5/5 motor strength present throughout Psych Appearance: grossly normal Mental Status: mental status grossly normal Speech and movement: Normal speech and movement present Affect: normal affect Attitude: cooperative Thought process: Normal thought process present Assessment & Plan Assessment & Plan (1) Visual aura: Code(s): H53.9 - Unspecified visual disturbance (2) Migraine with aura: Code(s): G43.109 - Migraine with aura, not intractable, without status migrainosus (3) Family hx of aortic aneurysm: Code(s): Z82.49 - Family history of ischemic heart disease and other diseases of the circulatory system (4) MCKENNA (obstructive sleep apnea): Code(s): G47.33 - Obstructive sleep apnea (adult) (pediatric) Plan Pt advised to undergo head/brain MRA to assess for vascualr etiologies of transient visual aura in setting of a-fib, family hx of aortic aneurysms. For overall headache management: Continue to optimize good self-care, including but not limited to maintaining a healthy diet, adequate fluid intake, adequate sleep, and engaging in regular physical activity. We will f/u w/ Froylan to connect us to pt's [employer] account and obtain previous sleep studies, settings. Pt advised to call or go to [facility] to have machine checked. Track headaches. ? ?For acute headache treatment: Continue Ubrelvy 50-100mg at onset of aura, MR in 2 hrs, max 200mg/day, may take w/ Tylenol. Previous acute migraine medication trials: Sumtariptan- effective Acute migraine medication contraindications: Triptans- d/t a-fib dx. NSAIDs/Naproxen- d/t Eliquis use. ? For headache prevention medication: Continue Riboflavin 400mg qam Continue Magnesium 400mg qhs Previous migraine prevention medication trials: Amitriptyline- ? effectiveness. Pt on Metoprolol for a-fib. Migraine prevention medication contraindications: Topiramate- d/t risk for worsening STM difficulties. Amitriptyline d/t a-fib dx. ? Pt to follow-up in 3-4 months or sooner prn. Orders: Orders MR angio head wo con Today H53.9 - Unspecified visual disturbance, I48.0 - Paroxysmal atrial fibrillation, Z82.49 - Family history of ischemic heart disease and other diseases of the circulatory system Coding Level of Care Code Est Pt Level 4 (37223) Diagnoses Visual aura H53.9 Migraine with aura G43.109 Family hx of aortic aneurysm Z82.49 MCKENNA (obstructive sleep apnea) G47.33
[2023-02-24 09:45] VITALS: BP 130/82; PULSE 96; O2SAT 96; BMI 30.1
== END 2023-02-24 10:29 | disposition home or self-care (01) ==
PROVIDERS: Visit Provider Nurse Practitioner Family
DX: H53.9 Unspecified visual disturbance (principal); G43.109 Migraine with aura, not intractable, without status migrainosus; Z82.49 Family history of ischemic heart disease and other diseases of the circulatory system; G47.33 Obstructive sleep apnea (adult) (pediatric)
CPT/HCPCS: 99214

== ENCOUNTER → 2023-02-24 09:42 | Outpatient (BNVA) | payer BC, SELFPAY | PROVIDERS: Visit Provider Nurse Practitioner Family ==

== ENCOUNTER 2023-06-02 12:06 | Outpatient (REF) | payer BC, SELFPAY ==
[2023-06-02 13:19] LABS: MANUAL DIFF FLAG NO
[2023-06-02 13:42] LABS: Basophils Absolute Auto 0.1 X10*3/uL (0.0-0.2); Basophils Percent Auto 1.1 % (0-2); Eosinophils Absolute Auto 0.1 X10*3/uL (0.0-0.4); Eosinophils Percent Auto 1.5 % (0-4); Hematocrit 47.1 % (42.0-52.0); Hemoglobin 16.3 g/dl (14.0-18.0); Imm Gran Abs Auto 0.01 X10*3/uL (0.00-0.03); Imm Gran Pct Auto 0.2 % (0.0-0.4); Lymphocytes Absolute Auto 1.5 X10*3/uL (1.2-4.9); Lymphocytes Percent Auto 26.7 % (20-40); Mean Corpuscular HGB Conc 34.6 g/dl (31.0-36.0); Mean Corpuscular Hemoglobin 32.5 pg (27.0-33.0); Mean Platelet Volume 9.8 fL (9.4-12.4); Monocytes Absolute Auto 0.3 X10*3/uL (0.1-1.2); Monocytes Percent Auto 6.3 % (2-11); Neutrophils Absolute Auto 3.5 x10*3/uL (2.0-8.3); Neutrophils Percent Auto 64.2 % (45-73); Platelet Count 237 X10*3/uL (160-400); Red Blood Count 5.01 X10*6/uL (4.60-5.80); Red Cell Distribution Width 12.6 % (11.0-16.0); White Blood Count 5.4 X10*3/uL (4.8-10.8)
[2023-06-02 13:49] LABS: Appearance Urine Clear; Color Urine Dark Yellow; Glucose Urine UA Negative (Negative); Leukocyte Esterase Urine Negative (Negative); Nitrite Urine Negative (Negative); PH 6.5 (5.0-9.0); Specific Gravity - Urine 1.025 (1.005-1.025); Urine Blood Negative (Negative); Urine Ketones Negative (Negative); Urine Protein Negative (Neg-Trace)
[2023-06-02 13:59] LABS: Alanine Aminotransferase 13 U/L (0-40); Albumin Level 4.4 g/dL (3.5-5.0); Alkaline Phosphatase 44 U/L (39-117); Anion Gap 15 (12-20); Aspartate Amino Transferase 15 U/L (5-37); Bilirubin Total 0.9 mg/dL (0.0-1.0); Blood Urea Nitrogen 12 mg/dL (9-16); Calcium 9.4 mg/dL (8.4-10.2); Carbon Dioxide 23 mmol/L (22-29); Chloride 108 mmol/L (96-108); Cholesterol 232 mg/dL (<200); Estimated Glomerular Filt Rate > 60; Glucose Fasting 102 mg/dL (60-99); HDL Cholesterol 71 mg/dL (>40); LDL Cholesterol Calculated 138 mg/dL (<100); Sodium 142 mmol/L (135-145); Total Protein 7.5 g/dL (6.5-8.0); Triglycerides 117 mg/dL (<150)
[2023-06-02 14:18] LABS: TSH reflex Free T4 0.46 uIU/mL (0.32-4.0)
== END 2023-06-02 12:07 | disposition home or self-care (01) ==
LOC: HO.HMGCLDS 12:06
PROVIDERS: PCP Nurse Practitioner Family; Visit Provider Nurse Practitioner Family
DX: Z00.00 Encounter for general adult medical examination without abnormal findings (principal); Z12.5 Encounter for screening for malignant neoplasm of prostate; Z13.6 Encounter for screening for cardiovascular disorders; G43.909 Migraine, unspecified, not intractable, without status migrainosus
CPT/HCPCS: 36415; 80053; 80061; 81003; 84153; 84443; 85025

== ENCOUNTER 2023-06-07 10:46 | Outpatient (AMB) | payer BC, SELFPAY ==
[2023-06-07 10:49] VITALS: BP 130/80; BMI 30.4
--- NOTE | 2023-06-07 10:49 | MHC.PC.OV ---
Vital Signs 06/07/23 10:49 Height 5 ft 10 in Weight 212 lb BMI 30.4 BP 130/80 Blood Pressure Location Lt brachial Position Sitting Intake Visit Reasons: 6 month follow up Intake Note: pt is here for 6 month follow up Load Checker Required: No Accompanied by: Self / Same As Patient Allergies celecoxib [From CELEBREX] Allergy (Unknown, Verified 06/07/23 11:03) HIVES penicillin G Allergy (Unknown, Verified 06/07/23 11:03) rash, swelling penicillin V Allergy (Unknown, Verified 06/07/23 11:03) hives Penicillins [PENICILLINS] Allergy (Unknown, Verified 06/07/23 11:03) HIVES Tobacco use date assessed: 06/07/23 Dental Screening Dental Screen Date: 06/07/23 Did you have a dental visit in the last 12 months?: Yes Did you have a dental problem in the last 6 months where you did not have access to dental care?: No Was dental information given to patient?: Patient has dentist HPI 6 month follow up HPI Details Pt's last lipids were elevated. He is currently taking fenofibrate 160mg. Will start atorvastatin 20mg. Will repeat labs 2 months after starting statin. Denies chest pain, shortness of breath, and dizziness. Pt's fasting blood sugar was also elevated. Educated pt on proper diet and portion sizes. [facility] Medical History Eye injury Atrial fibrillation with rapid ventricular response Pulmonary nodules Bladder outlet obstruction Nocturia Weak urinary stream MCKENNA (obstructive sleep apnea) Surgical History H/O wrist surgery History of surgery Leukoplakia Family History Father CVD (cardiovascular disease) Alzheimer's disease Dementia Substance use disorder Abdominal aortic aneurysm (AAA) Mother Infection of spine Substance use disorder Paternal Aunt Diabetes mellitus Brother Abdominal aortic aneurysm (AAA) Sister Abdominal aortic aneurysm (AAA) Sister Heart aneurysm Sister No problems noted. Sister No problems noted. Social History Household Members: Spouse Housing: House Do you presently have visiting nurse or other home services: No Alcohol intake: former Patient Tobacco Use Status: Former Tobacco user Tobacco use type: Cigarette Years Smoked: 25 years e-Cigarette/Vaping Use: Never Used Second Hand Smoke Exposure: No service: Yes Current occupational status: employed Current occupation: [employer] Current occupational exposures/hazards: No Cognitive needs: No Hearing needs: No Vision needs: No Questionnaire PHQ-9 Over the last 2 weeks, how often have you been bothered by any of the following problems? 1. Little interest or pleasure in doing things: not at all 2. Feeling down, depressed, or hopeless: not at all 3. Trouble falling or staying asleep, or sleeping too much: several days 4. Feeling tired or having little energy: several days 5. Poor appetite or overeating: not at all 6. Feeling bad about yourself - or that you are a failure or have let yourself or your family down: not at all 7. Trouble concentrating on things, such as reading the newspaper or watching television: not at all 8. Moving or speaking so slowly that other people could have noticed. Or the opposite - being so fidgety or restless that you have been moving around a lot more than usual: not at all 9. Thoughts that you would be better off or of hurting yourself in some way: not at all Total score: 2 Depression Screening Interpretation: Negative Depression Screening Done: Yes [id number] - PHQ-9 Billing: Yes Source: Developed by Drs. Theodore Fofana, Hali Deleon, James Barron and colleagues, with an educational meghan from [employer]. Thrive Questionnaire Date Thrive assessed: 06/07/23 I am a: Patient What is your living situation today?: I have a steady place to live Within the past 12 months, did the food you bought not last and you didn't have the money to get more?: Never true Within the past 12 months, did you worry whether your food would run out before you got money to buy more?: Never true Do you have trouble paying for medicines?: No Do you have trouble getting transportation to medical appointments?: No Do you have trouble paying your heating and electricity bill?: No Do you have trouble taking care of your child, family member or friend?: No Do you have trouble with day-to-day activities such as bathing, preparing meals, shopping, managing finances, etc.?: No Are you currently unemployed and looking for a job?: No Are you interested in more education?: No Please select the resources that you would like help with: None Currently or been in a relationship where the following occur: no concerns reported THRIVE Score: 0 AUDIT C Alcohol Use Questionnaire (AUDIT-C) 1. How often do you have a drink containing alcohol?: 4 or more times a week 2. How many drinks containing alcohol do you have on a typical day when you are drinking?: 5 or 6 3. How often do you have six or more drinks on one occasion?: Less than monthly Total Score: 7 Score Reviewed/Action Taken: Yes OSKAR-7 AMB Questionnaire OSKAR-7 Date OSKAR - 7 assessed: 06/07/23 Source: Developed by Drs. Theodore Fofana, Hali Deleon, James Barron and colleagues, with an educational meghan from [employer]. Review of Systems Const Reports as per HPI Physical exam (Primary Care) Vital Signs: Last Vital Signs BP 130/80 06/07/23 10:49 BMI result Body Mass Index 30.4 Tobacco/Smoking Status: Tobacco use Status Tobacco use date assessed 06/07/23 06/07/23 10:53 Patient Tobacco Use Status Former Tobacco user 06/07/23 10:53 Tobacco use type Cigarette 06/07/23 10:53 e-Cigarette/Vaping Use Never Used 06/07/23 10:53 PHQ-9: PHQ-9 Score PHQ-9: Total score 2 06/07/23 10:57 Depression Screening Interpretation: Negative Thrive Assessment: Date of Thrive Assessment Date Thrive assessed 06/07/23 06/07/23 10:57 Currently or been in a relationship where the following occur: no concerns reported Const General: cooperative Orientation/consciousness: patient oriented x3 Resp Effort & Inspection: normal respiratory effort Auscultation: clear to auscultation bilaterally Cardio Rate: regular rate Rhythm: regular rhythm Heart sounds: S1 normal heart sound present and S2 normal heart sound present Neuro General: patient oriented x3 Psych Appearance: grossly normal Mental Status: mental status grossly normal Speech and movement: Normal speech and movement present Affect: normal affect Attitude: cooperative Thought process: Normal thought process present Thought content: Normal thought content present Insight: Good insight present (Psych) Judgement: Good judgement present (Psych) Assessment and Plan Assessment & Plan (1) Dyslipidemia: Code(s): E78.5 - Hyperlipidemia, unspecified Plan: starting statin, repeat labs in 2 months Plan The patient agreed to the use of a certified medical technician for this encounter. Scribed for CHLOE Parsons by Kalyn Leon certified medical technician, on 06/07/2023 at 11:05 EST. Medications: New atorvastatin 20 mg PO BEDTIME 90 tabs 0RF Coding Level of Care Code Est Pt Level 3 (07955) Diagnoses Dyslipidemia E78.5
== END 2023-06-07 11:23 | disposition home or self-care (01) ==
PROVIDERS: PCP Nurse Practitioner Family; Visit Provider Nurse Practitioner Family
DX: E78.5 Hyperlipidemia, unspecified (principal)
CPT/HCPCS: 99213

== ENCOUNTER 2023-06-30 11:44 | Outpatient (AMB) | payer BC, SELFPAY ==
--- NOTE | 2023-06-30 11:48 | MHC.OFFVIS ---
Vital Signs 06/30/23 11:49 Height 5 ft 10 in Weight 213 lb BMI 30.6 BP 124/78 Blood Pressure Location Rt brachial Position Sitting Pulse 105 H Pulse Source Pulse Oximeter Pulse Oximetry (%) 98 Oxygen Delivery Method Room Air Intake Visit Reasons: 4 mo f/u Migraines - LVM Intake Note: Patient presents fcor 4 month follow up migraines. patient not having as many migraines Allergies celecoxib [From CELEBREX] Allergy (Unknown, Verified 06/30/23 11:50) HIVES penicillin G Allergy (Unknown, Verified 06/30/23 11:50) rash, swelling penicillin V Allergy (Unknown, Verified 06/30/23 11:50) hives Penicillins [PENICILLINS] Allergy (Unknown, Verified 06/30/23 11:50) HIVES HPI Comments Details: 62-yr-old male presents for f/u visit, accompanied by his . Pt reports that since he had a right sided crown 3 weeks ago, he has had right jaw pain and been biting his right inner cheek. The last few days, he has noticed right lower lip and right chin numbness. His right cheek is more swollen. He has not had f/u w/ his dentist. Has not needed to use his Ubrelvy in the last few months. He has not been using his CPAP- states falls asleep before he puts it on. He does endorse vivid dreams, and parasomnias- fights and talks in his sleep. His memory stinks , has always been poor. Today, he notes right 1st toe joint pain. Has hand and feet cramp up at times. Baseline headache characteristics: Aura: Sees black spots that turn into a central fuzz that expands- lasts 30 minutes. May not be f/b a headache- especially if has used his acute tx. Headache: Moderate, Throbbing pain- unsure of location a/w N/V. [facility] Medical History Eye injury Atrial fibrillation with rapid ventricular response Pulmonary nodules Bladder outlet obstruction Nocturia Weak urinary stream MCKENNA (obstructive sleep apnea) Surgical History H/O wrist surgery History of surgery Leukoplakia Family History Father CVD (cardiovascular disease) Alzheimer's disease Dementia Substance use disorder Abdominal aortic aneurysm (AAA) Mother Infection of spine Substance use disorder Paternal Aunt Diabetes mellitus Brother Abdominal aortic aneurysm (AAA) Sister Abdominal aortic aneurysm (AAA) Sister Heart aneurysm Sister No problems noted. Sister No problems noted. Social History Household Members: Spouse Housing: House Do you presently have visiting nurse or other home services: No Alcohol intake: former Patient Tobacco Use Status: Former Tobacco user Tobacco use type: Cigarette Years Smoked: 25 years e-Cigarette/Vaping Use: Never Used Second Hand Smoke Exposure: No service: Yes Current occupational status: employed Current occupation: [employer] Current occupational exposures/hazards: No Cognitive needs: No Hearing needs: No Vision needs: No Physical Exam Vital Signs: Last Vital Signs Pulse 105 H 06/30/23 11:49 BP 124/78 06/30/23 11:49 Pulse Ox 98 06/30/23 11:49 Oxygen Delivery Method Room Air 06/30/23 11:49 BMI result Body Mass Index 30.6 Const General: cooperative and no acute distress Orientation/consciousness: patient oriented x3 Resp Effort & Inspection: normal respiratory effort and able to speak in complete sentences Neuro Other: Right cheeking swelling Mild decreased sensation in right chin and lower lip. Mild eye flutter and chin tremor on smile. General: patient oriented x3 Cranial nerves: Yes CN's II-XII intact bilaterally Cognition (Neuro): normal cognition Psych Appearance: grossly normal Mental Status: mental status grossly normal Speech and movement: Normal speech and movement present Affect: normal affect Attitude: cooperative Assessment & Plan Assessment & Plan (1) Migraine with aura: Code(s): G43.109 - Migraine with aura, not intractable, without status migrainosus Category: Medical (2) Visual aura: Code(s): H53.9 - Unspecified visual disturbance Category: Medical (3) MCKENNA (obstructive sleep apnea): Code(s): G47.33 - Obstructive sleep apnea (adult) (pediatric) Category: Medical Plan Pt advised to f/u with his dentists r/t right cheek/lip numbness s/p right-sided dental procedure. Pt advsied to notfiy us if numbness persists or dentist does not feel numbness r/t recent dental procedure. Head/brain MRA- normal Monitor tremor. Monitor parasomnias. Pt's PAP machine is not connected to a compliance portal. Will request previous HST report from [employer]. Resp company is [employer]. ? For overall headache management: Optimize good self-care, including but not limited to maintaining a healthy diet, adequate fluid intake, adequate sleep, and engaging in regular physical activity. Track headaches. ? For acute headache treatment: Continue Ubrelvy 50-100mg at onset of aura, MR in 2 hrs, max 200mg/day, may take w/ Tylenol. Previous acute migraine medication trials: Sumtariptan- effective Acute migraine medication contraindications: Triptans- d/t a-fib dx. NSAIDs/Naproxen- d/t Eliquis use. ? For headache prevention medication: Continue Riboflavin 400mg qam Continue Magnesium 400mg qhs Previous migraine prevention medication trials: Amitriptyline- ? effectiveness. Pt on Metoprolol for a-fib. Migraine prevention medication contraindications: Topiramate- d/t risk for worsening STM difficulties. Amitriptyline d/t a-fib dx. ? Pt to follow-up in 6 months or sooner prn. Scribe Plan - Not visible on output: Reviewed possible medication side effects, including but not limited to drowsiness, dizziness. Coding Level of Care Code Est Pt Level 4 (44794) Diagnoses Migraine with aura G43.109 Visual aura H53.9 MCKENNA (obstructive sleep apnea) G47.33
[2023-06-30 11:49] VITALS: BP 124/78; PULSE 105; O2SAT 98; BMI 30.6
== END 2023-06-30 12:30 | disposition home or self-care (01) ==
PROVIDERS: PCP Nurse Practitioner Family; Visit Provider Nurse Practitioner Family
DX: G43.109 Migraine with aura, not intractable, without status migrainosus (principal); H53.9 Unspecified visual disturbance; G47.33 Obstructive sleep apnea (adult) (pediatric)
CPT/HCPCS: 99214

== ENCOUNTER → 2023-06-30 11:44 | Outpatient (BNVA) | payer BC, SELFPAY | PROVIDERS: PCP Nurse Practitioner Family; Visit Provider Nurse Practitioner Family ==

== ENCOUNTER 2023-08-25 08:32 | Outpatient (AMB) | payer BC, SELFPAY ==
[2023-08-25 08:41] VITALS: BP 132/78; PULSE 94
--- NOTE | 2023-08-25 08:41 | A.OFFVIS_ITS ---
Vital Signs 08/25/23 08:41 Height 5 ft 10 in Weight 209 lb 7.026 oz BMI 30.0 BP 132/78 Blood Pressure Location Lt brachial Position Sitting Pulse 94 Pulse Source Monitor Intake Visit Reasons: 1 yr f/up Intake Note: pt is doing good and here for OV with EKG Accompanied by: Spouse Allergies celecoxib [From CELEBREX] Allergy (Unknown, Verified 06/30/23 11:50) HIVES penicillin G Allergy (Unknown, Verified 06/30/23 11:50) rash, swelling penicillin V Allergy (Unknown, Verified 06/30/23 11:50) hives Penicillins [PENICILLINS] Allergy (Unknown, Verified 06/30/23 11:50) HIVES Medication List - Last Reconciled 08/25/23 by José Manuel Allen MD atorvastatin 20 mg PO BEDTIME cyclobenzaprine 10 mg PO BEDTIME fenofibrate 160 mg PO DAILY magnesium oxide 400 mg PO BEDTIME 30 days MDD 1 omeprazole 20 mg PO DAILY riboflavin (vitamin B2) 400 mg PO DAILY 30 days tamsulosin 0.4 mg PO BEDTIME 90 days ubrogepant (Ubrelvy) 50 - 100 mg PO ONCE PRN venlafaxine ER 150 mg PO DAILY HPI Comments Details: Nehemiah comes for follow-up. He has been doing well from cardiac perspective. Remains active and works and has no cardiac symptoms to report. Denies any exertional chest pain or shortness of breath. Continues to have symptoms occasionally of orthostatic lightheadedness especially when he jarvis over and stands up. No syncopal episodes. Denies any prolonged palpitation irregular heartbeat. Uses CPAP. Infrequent use of alcohol. Denies any heart failure symptoms. Currently on statin and fenofibrate, LDL is not extremely well optimized. Triglycerides are within acceptable limits. [facility] Medical History Eye injury Atrial fibrillation with rapid ventricular response Pulmonary nodules Bladder outlet obstruction Nocturia Weak urinary stream MCKENNA (obstructive sleep apnea) Surgical History H/O wrist surgery History of surgery Leukoplakia Family History Father CVD (cardiovascular disease) Alzheimer's disease Dementia Substance use disorder Abdominal aortic aneurysm (AAA) Mother Infection of spine Substance use disorder Paternal Aunt Diabetes mellitus Brother Abdominal aortic aneurysm (AAA) Sister Abdominal aortic aneurysm (AAA) Sister Heart aneurysm Sister No problems noted. Sister No problems noted. Social History Household Members: Spouse Housing: House Do you presently have visiting nurse or other home services: No Alcohol intake: former Patient Tobacco Use Status: Former Tobacco user Tobacco use type: Cigarette Years Smoked: 25 years e-Cigarette/Vaping Use: Never Used Second Hand Smoke Exposure: No service: Yes Current occupational status: employed Current occupation: [employer] Current occupational exposures/hazards: No Cognitive needs: No Hearing needs: No Vision needs: No Review of Systems Const Denies weakness ENT Denies dizziness Card Denies chest pain, Denies chest pain with activity, Denies syncope, Denies rapid heart rate, Denies pedal edema, Denies edema, Denies leg edema, Denies lightheadedness, Denies palpitations, Denies dyspnea, Denies dyspnea on exertion and Denies orthopnea Resp Denies cough, Denies dyspnea and Denies dyspnea on exertion GI Denies hematochezia and Denies change in stool character Musc Denies abnormal gait, Denies muscle cramps, Denies muscle weakness, Denies numbness, Denies radiating pain into limb and Denies tingling Neuro Denies abnormal gait, Denies dizziness, Denies syncope, Denies numbness, Denies tingling and Denies weakness Endo Denies palpitations Physical Exam Vital Signs: Last Vital Signs Pulse 94 08/25/23 08:41 BP 132/78 08/25/23 08:41 BMI result Body Mass Index 30.0 Const General: cooperative, comfortable, no acute distress, well developed, alert, awake and well groomed Nutritional Appearance: well nourished and overweight Orientation/consciousness: patient oriented x3 Limitations: no limitations Neck Neck: Yes trachea midline, Yes supple and Yes no JVD Resp Effort & Inspection: normal respiratory effort Auscultation: clear to auscultation bilaterally Cardio Jugular venous distension: no JVD Palpation: normal PMI Rate: regular rate Rhythm: regular rhythm Heart sounds: S1 normal heart sound present, S2 normal heart sound present, no click, no gallops, no murmurs and no rubs GI Auscultation: normal bowel sounds Skin General skin exam: no rashes or lesions noted Neuro General: patient oriented x3 and no focal motor deficits Extrem General: Yes no clubbing, cyanosis or edema Office Procedures EKG Details: EKG shows normal sinus rhythm with normal EKG [id number], Complete Assessment & Plan Assessment & Plan (1) Paroxysmal atrial fibrillation: Code(s): I48.0 - Paroxysmal atrial fibrillation Category: Medical Plan: Highly symptomatic paroxysmal atrial fibrillation without any obvious clinical recurrence. No pharmacotherapy is indicated at this point time. Continue to avoid alcohol use which was discussed. Avoid other stimulants as well. Advised to call me with any new symptoms. Continue CPAP therapy. Continue participate in regular physical activity as tolerated. CHADSVASc score of 0. No indication for anticoagulation therapy. Follow-up echocardiogram next year. (2) Dyslipidemia: Code(s): E78.5 - Hyperlipidemia, unspecified Category: Medical Plan: Mixed hyperlipidemia on dual therapy. Not sure when the atorvastatin was started. Target goal LDL definitely below 100 mg/dL. Consider coronary calcium score to evaluate for coronary atherosclerosis which may require more intense lipid modification. Continue heart healthy lifestyle with regular physical activity and diet. (3) Orthostatic lightheadedness: Code(s): R42 - Dizziness and giddiness Plan: Continues to have orthostatic lightheadedness. Precautions were discussed with him in details. Continue maintain adequate hydration and salt intake. Will follow up in the clinic in 1 year's time, sooner p.r.n.. Thank you for allowing me to partake in his care Coding Level of Care Code Est Pt Level 4 (70341) Diagnoses Paroxysmal atrial fibrillation I48.0 Dyslipidemia E78.5 Orthostatic lightheadedness R42 CPT Codes EKG - CPT: [id number], Complete ([id number])
== END 2023-08-25 09:02 | disposition home or self-care (01) ==
PROVIDERS: PCP Nurse Practitioner Family; Visit Provider Internal Medicine Cardiovascular Disease
DX: I48.0 Paroxysmal atrial fibrillation (principal); E78.5 Hyperlipidemia, unspecified; R42 Dizziness and giddiness
CPT/HCPCS: 93010; 99214

== ENCOUNTER → 2023-08-25 08:32 | Outpatient (BNVA) | payer BC, SELFPAY | PROVIDERS: PCP Nurse Practitioner Family; Visit Provider Internal Medicine Cardiovascular Disease | DX: I48.0 Paroxysmal atrial fibrillation (principal); E78.5 Hyperlipidemia, unspecified; R42 Dizziness and giddiness | CPT/HCPCS: 93005 ==

== ENCOUNTER 2023-09-13 11:09 | Outpatient (AMB) | payer BC, SELFPAY ==
[2023-09-13 11:33] VITALS: BP 128/78; PULSE 91; TEMP 36.6; O2SAT 96
--- NOTE | 2023-09-13 11:33 | AM.OFFWIN_ITS ---
Intake Vital Signs 09/13/23 11:33 Height 5 ft 10 in Weight 209 lb BMI 30.0 BP 128/78 Blood Pressure Location Rt brachial Position Sitting Pulse 91 Pulse Source Pulse Oximeter Temp 97.9 F Temp Source Oral Pulse Oximetry (%) 96 Intake Visit Reasons: EP cough, headache, SOB Intake Note: pt is here for cough, headache, SOB Patient Tobacco Use Status: Former Tobacco user Allergies celecoxib [From CELEBREX] Allergy (Unknown, Verified 09/13/23 11:34) HIVES penicillin G Allergy (Unknown, Verified 09/13/23 11:34) rash, swelling penicillin V Allergy (Unknown, Verified 09/13/23 11:34) hives Penicillins [PENICILLINS] Allergy (Unknown, Verified 09/13/23 11:34) HIVES Medication List - Last Reconciled 09/13/23 by Ramila Clifford NP atorvastatin 20 mg PO BEDTIME cyclobenzaprine 10 mg PO BEDTIME fenofibrate 160 mg PO DAILY magnesium oxide 400 mg PO BEDTIME 30 days MDD 1 omeprazole 20 mg PO DAILY riboflavin (vitamin B2) 400 mg PO DAILY 30 days tamsulosin 0.4 mg PO BEDTIME 90 days ubrogepant (Ubrelvy) 50 - 100 mg PO ONCE PRN venlafaxine ER 150 mg PO DAILY Do you need a note to return to daycare/school/sports/work: No HPI EP cough, headache, SOB HPI Details This note is constructed using voice recognition software. While every effort has been made to ensure accuracy, contract officer errors may have been included. 62-year-old male patient former smoker p resents with 2 week history of cough, dyspnea on extreme exertion, and frontal headache, improving since onset however has not gone away. He notes that the cough is producing thick, brown, copious secretions. He denies dyspnea at rest, reports a fever of 100 2 weeks ago. [facility] Medical History Eye injury Atrial fibrillation with rapid ventricular response Pulmonary nodules Bladder outlet obstruction Nocturia Weak urinary stream MCKENNA (obstructive sleep apnea) Surgical History H/O wrist surgery History of surgery Leukoplakia Family History Father CVD (cardiovascular disease) Alzheimer's disease Dementia Substance use disorder Abdominal aortic aneurysm (AAA) Mother Infection of spine Substance use disorder Paternal Aunt Diabetes mellitus Brother Abdominal aortic aneurysm (AAA) Sister Abdominal aortic aneurysm (AAA) Sister Heart aneurysm Sister No problems noted. Sister No problems noted. Social History Household Members: Spouse Housing: House Do you presently have visiting nurse or other home services: No Alcohol intake: former Patient Tobacco Use Status: Former Tobacco user Tobacco use type: Cigarette Years Smoked: 25 years e-Cigarette/Vaping Use: Never Used Second Hand Smoke Exposure: No service: Yes Current occupational status: employed Current occupation: [employer] Current occupational exposures/hazards: No Cognitive needs: No Hearing needs: No Vision needs: No Review of Systems Const All systems reviewed & are unremarkable except as noted in HPI and below Card Reports dyspnea on exertion Resp Reports change in phlegm color (brown), Reports cough (improving since onset), Denies pain with cough and Reports dyspnea on exertion Physical Exam Vital Signs: Last Vital Signs Temp 97.9 F 09/13/23 11:33 Pulse 91 09/13/23 11:33 BP 128/78 09/13/23 11:33 Pulse Ox 96 09/13/23 11:33 BMI result Body Mass Index 30.0 Const General: cooperative, healthy appearing, comfortable and no acute distress Orientation/consciousness: patient oriented x3 Limitations: no limitations HEENT Head: Yes normal to inspection Ears: hearing grossly normal bilaterally, external ears normal and TM's normal bilaterally General nose exam: Normal external nose present, Normal nares present and No nasal discharge present Face and sinus: Yes normal facial exam and Yes sinuses nontender Mouth: Normal oral and palatal mucosa present and moist mucous membranes Throat: Yes tonsils normal, Yes uvula midline and Yes posterior oropharynx abnormal (Erythema) Eyes General: appearance normal, both eyes and all related structures Neck Neck: Yes normal visual inspection Resp Effort & Inspection: normal respiratory effort, able to speak in complete sentences, Actively coughing, no respiratory distress, not tachypneic, no tripod positioning and no use of accessory muscles Auscultation: clear to auscultation bilaterally Cardio Jugular venous distension: no JVD Rate: regular rate Rhythm: regular rhythm Heart sounds: S1 normal heart sound present, S2 normal heart sound present, no click, no gallops, no murmurs and no rubs Skin General skin exam: no rashes or lesions noted, elasticity normal and turgor normal Neuro General: patient oriented x3 Extrem General: Yes normal to inspection and Yes no clubbing, cyanosis or edema Assessment & Plan Assessment & Plan (1) COPD exacerbation: Code(s): J44.1 - Chronic obstructive pulmonary disease with (acute) exacerbation Plan: Given longstanding history of former smoking, as well as history abnormal sputum with this illness, we will treat for COPD exacerbation in setting of no formal diagnosis of COPD. Advised follow-up with PCP with worsening, failure to resolve, and for consideration of additional workup if needed if patient should continue to have symptoms similar with future URIs. Supportive measures reviewed. Plan See above for full details and plan. Medications: New azithromycin For 250 mg dose pack: take 500 mg today (day 1), then 250 mg for 4 days (days 2-5) PO 6 tabs 0RF albuterol sulfate 90 mcg/actuation 1 inh inhalation QID PRN 6.7 grams 0RF shortness of breath or wheezing Coding Level of Care Code Est Pt Level 3 (02817) Diagnoses COPD exacerbation J44.1
== END 2023-09-13 12:15 | disposition home or self-care (01) ==
PROVIDERS: PCP Nurse Practitioner Family; Visit Provider Registered Nurse
DX: R05.1 Acute cough (principal); Z87.891 Personal history of nicotine dependence
CPT/HCPCS: 99213

== ENCOUNTER 2023-12-14 14:17 | Outpatient (AMB) | payer BC, SELFPAY ==
--- NOTE | 2023-12-14 14:21 | A.OFFVIS_ITS ---
Intake Visit Reasons: 1Y Follow Up- PVR Intake Note: Patient is present for 1Y F/U PVR Urology Med: Tamsulosin, VITAMIN B2 Antibiotic Allergy: Penicillins Blood Thinner: None TODAY'S PVR:0ML'S Macerator Operator Required: No Allergies celecoxib [From CELEBREX] Allergy (Unknown, Verified 12/14/23 14:22) HIVES penicillin G Allergy (Unknown, Verified 12/14/23 14:22) rash, swelling penicillin V Allergy (Unknown, Verified 12/14/23 14:22) hives Penicillins [PENICILLINS] Allergy (Unknown, Verified 12/14/23 14:22) HIVES HPI Comments Details: Nehemiah GONZALES is a very pleasant male. He is a patient of Dr Cao. He is seen for the following urologic conditions. - lower urinary tract symptoms Stable voiding parameters Remains on tamsulosin Prior Discussed potential prostate incision for symptom progression PVR 0 cc PSA low. Under needs to be checked every 2-3 years. Twelve month follow-up Lower Urinary Tract Symptoms:? PVR today 0cc ? Current visit is for?further evaluation of, lower urinary tract symptoms, predominate irritative symptoms, ?- was concerned he had a UTI.? Current treatment includes?tamsulosin ? Prostate Symptom Score?01/29 , Moderate (9-19), Bother 3.? Symptoms include?01/29 , frequency, urgency, nocturia (>2), and are progressing.? PSA?07/31 0.74, 11/02 1.0, 06/04 1.4 ? Prostate volume?30-50gm.? Testing at next visit will include?bladder scan.? [facility] Medical History Eye injury Atrial fibrillation with rapid ventricular response Pulmonary nodules Bladder outlet obstruction Nocturia Weak urinary stream MCKENNA (obstructive sleep apnea) Surgical History H/O wrist surgery History of surgery Leukoplakia Family History Father CVD (cardiovascular disease) Alzheimer's disease Dementia Substance use disorder Abdominal aortic aneurysm (AAA) Mother Infection of spine Substance use disorder Paternal Aunt Diabetes mellitus Brother Abdominal aortic aneurysm (AAA) Sister Abdominal aortic aneurysm (AAA) Sister Heart aneurysm Sister No problems noted. Sister No problems noted. Social History Household Members: Spouse Housing: House Do you presently have visiting nurse or other home services: No Alcohol intake: former Patient Tobacco Use Status: Former Tobacco user Tobacco use type: Cigarette Years Smoked: 25 years e-Cigarette/Vaping Use: Never Used Second Hand Smoke Exposure: No service: Yes Current occupational status: employed Current occupation: [employer] Current occupational exposures/hazards: No Cognitive needs: No Hearing needs: No Vision needs: No Review of Systems Const Denies chills and Denies fever(s) Card Reports no additional complaints and Denies syncope Resp Denies cough GI Denies abdominal pain and Denies heartburn Reports as per HPI and Denies change in libido Neuro Denies syncope Psych Denies change in libido Endo Denies change in libido Physical Exam Const General: cooperative, healthy appearing, comfortable and no acute distress Orientation/consciousness: patient oriented x3 HEENT Face and sinus: Yes normal facial exam Mouth: moist mucous membranes Neck Neck: Yes normal visual inspection, Yes full ROM and Yes trachea midline Chest Chest palpation & inspection: normal inspection of the chest Resp Effort & Inspection: normal respiratory effort, able to speak in complete sentences and no respiratory distress GI Inspection: Yes normal to inspection Back/Spine/Pelvis Cervical Spine: normal cervical lordosis Thoracic/Lumbar Spine: thoracic and lumbar spine normal to inspection Skin General skin exam: no rashes or lesions noted Neuro General: patient oriented x3, gait normal, tone normal and moves all extremities Extrem General: Yes normal to inspection and Yes capillary refill normal Office Procedures Post Void Residual Post Residual Void Post Void Residual (PVR): 0 10214-[place] Void Residual by ultrasound Results AMB Urinalysis, Automated UA Leukoctes 0 Moe/uL Last Edit by AARON Phillips on 12/14/23 14:36 UA Nitrite Negative Last Edit by AARON Phillips on 12/14/23 14:36 UA Urobilinogen 0.2 mg/dL Last Edit by AARON Phillips on 12/14/23 14:3 6 UA Protein 0 mg/dL Last Edit by [facility] on 12/14/23 14:36 UA pH 6.5 Last Edit by AARON Phillips on 12/14/23 14:36 UA Blood 0 Gentry/uL Last Edit by Margaret Wilson [facility] on 12/14/23 14:36 UA Specific [place] 1.015 Last Edit by Margaret Wilson [facility] on 12/14/23 14: 36 UA Ketone Negative Last Edit by Margaret Wilson [facility] on 12/14/23 14:36 UA Bilirubin 0 mg/dL Last Edit by Margaret Wilson [facility] on 12/14/23 14:36 UA Glucose 0 mg/dL Last Edit by Margaret Wilson [facility] on 12/14/23 14:36 Results Reviewed Results Reviewed: Laboratory Last Values Urine pH (Auto) 6.5 12/14/23 14:35 Specific [place] (Auto) 1.015 12/14/23 14:35 Urine Protein (Auto) 0 mg/dL 12/14/23 14:35 Glucose (UA)(Auto) 0 mg/dL 12/14/23 14:35 Urine Ketones (Auto) Negative 12/14/23 14:35 Urine Blood (Auto) 0 Gentry/uL 12/14/23 14:35 Urine Nitrite (Auto) Negative 12/14/23 14:35 Urine Bilirubin (Auto) 0 mg/dL 12/14/23 14:35 Urine Urobilinogen (Auto) 0.2 mg/dL 12/14/23 14:35 Leukocyte Esterase (Auto) 0 Moe/uL 12/14/23 14:35 Assessment & Plan Assessment & Plan (1) Bladder outlet obstruction: Code(s): N32.0 - Bladder-neck obstruction Category: Medical Plan 12 month follow-up PVR Orders: Orders AMB Urinalysis Automated Today Z13.9 - Encounter for screening, unspecified Patient Instructions: Imaging studies, laboratory and physical exam results were discussed and reviewed in detail. No major barriers to patient understanding were identified. An opportunity to ask questions regarding the treatment plan was provided. All questions were answered. The patient expressed understanding and agreement with the above treatment plan. The patient is aware they should contact our office by phone for worsening of their current condition or the appearance of new urologic symptoms. Compliance is encouraged with any medications and followup testing that is ordered. It is a privilege to participate in the urologic care of your patient. If you have any questions or concerns regarding treatment for the above conditions, or other urologic issues, please do not hesitate to contact me. The office telephone contact is [phone]. This note is constructed using voice recognition software. While every effort has been made to ensure accuracy fire prevention inspector errors may have been included. Yours sincerely, Dr Víctor Ha MD, [facility] - Urology Providers of Expert, Compassionate Care for the Genitourinary System Coding Level of Care Code Est Pt Level 4 (40957) Diagnoses Bladder outlet obstruction N32.0 CPT Codes Post Residual Void - PVR CPT Code: 69169-Qmib Void Residual by ultrasound ([id number])
== END 2023-12-14 15:02 | disposition home or self-care (01) ==
PROVIDERS: PCP Nurse Practitioner Family; Visit Provider Urology
DX: Z13.9 Encounter for screening, unspecified (principal)
CPT/HCPCS: 99214

== ENCOUNTER → 2023-12-14 14:17 | Outpatient (BNVA) | payer BC, SELFPAY | PROVIDERS: PCP Nurse Practitioner Family; Visit Provider Urology | DX: N32.0 Bladder-neck obstruction (principal) | CPT/HCPCS: 51798; 81003 ==

== ENCOUNTER 2024-01-03 14:01 | Outpatient (AMB) | payer BC, SELFPAY ==
--- NOTE | 2024-01-03 14:08 | A.OFFVIS_ITS ---
Vital Signs 01/03/24 14:09 Height 5 ft 10 in Weight 213 lb BMI 30.6 BP 140/88 H Blood Pressure Location Rt brachial Position Sitting Intake Visit Reasons: Follow up Intake Note: Patient presents for follow up Allergies celecoxib [From CELEBREX] Allergy (Unknown, Verified 01/03/24 14:11) HIVES penicillin G Allergy (Unknown, Verified 01/03/24 14:11) rash, swelling penicillin V Allergy (Unknown, Verified 01/03/24 14:11) hives Penicillins [PENICILLINS] Allergy (Unknown, Verified 01/03/24 14:11) HIVES Medication List - Last Reconciled 01/03/24 by RHEA Jarvis albuterol sulfate 90 mcg/actuation 1 inh inhalation QID PRN atorvastatin 20 mg PO BEDTIME azithromycin For 250 mg dose pack: take 500 mg today (day 1), then 250 mg for 4 days (days 2-5) PO cyclobenzaprine 10 mg PO BEDTIME fenofibrate 160 mg PO DAILY magnesium oxide 400 mg PO BEDTIME 30 days MDD 1 omeprazole 20 mg PO DAILY riboflavin (vitamin B2) 400 mg PO DAILY 30 days tamsulosin 0.4 mg PO BEDTIME 90 days ubrogepant (Ubrelvy) 50 - 100 mg PO ONCE PRN venlafaxine ER 150 mg PO DAILY HPI Comments Details: 63-yr-old male presents for f/u visit, accompanied by his , for migraine, facial numbness, but today is most concerned about right foot discomfort. He states the right lower lip/chin numbness- has resolved. He describes Right foot discomfort as a sensation of something being balled up under the ball of his foot (more so towards the 1st toe) when he is standing or putting pressure on his foot. He also notes the right 5th toe feels like it is curling up when he puts his shoes on. He wears steel toe shoes at work. He feels the right foot can be red or swollen, and occasionally may have pins and needles and numbness, occasional BLE nocturnal leg cramps. Rarely will have left foot numbness. He also notes right hand numbness- comes on out of the blue. Denies right hand t ightness. He has tried icey hot, different shoes, inserts- has not helped much. Though cork lined shoes he is wearing today feels better. He does use his CPAP if he does not fall asleep before putting it on. He does not know how to shut off the machine once turned on. He does endorse vivid dreams, and parasomnias- fights and talks in his sleep. His memory continues to be poor- though he still works spiral [employer]. He can be shaky at times- when trying to do things. He notices that he is pill rolling his fingers- notes his right thumb fingernail is shiny from the repeated rubbing. He has had therapy tx for mood/irritability. Migraines have been much better. He is using Ubrelvy 1-2 x's per month with very good effect. Baseline headache characteristics: Aura: Sees black spots that turn into a central fuzz that expands- lasts 30 minutes. May not be f/b a headache- especially if has used his acute tx. Headache: Moderate, Throbbing pain- unsure of location a/w N/V. [facility] Medical History Eye injury Atrial fibrillation with rapid ventricular response Pulmonary nodules Bladder outlet obstruction Nocturia Weak urinary stream MCKENNA (obstructive sleep apnea) Surgical History H/O wrist surgery History of surgery Leukoplakia Family History Father CVD (cardiovascular disease) Alzheimer's disease Dementia Substance use disorder Abdominal aortic aneurysm (AAA) Mother Infection of spine Substance use disorder Paternal Aunt Diabetes mellitus Brother Abdominal aortic aneurysm (AAA) Sister Abdominal aortic aneurysm (AAA) Sister Heart aneurysm Sister No problems noted. Sister No problems noted. Social History Household Members: Spouse Housing: House Do you presently have visiting nurse or other home services: No Alcohol intake: former Patient Tobacco Use Status: Former Tobacco user Tobacco use type: Cigarette Years Smoked: 25 years e-Cigarette/Vaping Use: Never Used Second Hand Smoke Exposure: No service: Yes Current occupational status: employed Current occupation: [employer] Current occupational exposures/hazards: No Cognitive needs: No Hearing needs: No Vision needs: No Physical Exam Vital Signs: Last Vital Signs BP 140/88 H 10/22/24 14:09 BMI result Body Mass Index 30.6 Const General: cooperative and no acute distress Orientation/consciousness: patient oriented x3 Resp Effort & Inspection: normal respiratory effort and able to speak in complete sentences Neuro Other: Mild decreased expression w/ slight prominence on right. Prone to roll bilateral 1st/2nd fingers- Decreased right foot taps. Distal RLE- hypersensitivity to vibration, sharp touch. Position sensation intact, light touch sensation intact. BLE ankle tightness. RLE mild swelling, reddish discoloration, WNL warm to touch, PP 2+. LLE- distal light, sharp, vibration, position sensation intact. MS 5/5. Stands easily, steady gait, intermittent steps w/ low floor clearance, more so on right. General: patient oriented x3 Cranial nerves: Yes CN's II-XII intact bilaterally Cognition (Neuro): normal cognition Psych Appearance: grossly normal Mental Status: mental status grossly normal Speech and movement: Normal speech and movement present Affect: normal affect Attitude: cooperative Assessment & Plan Assessment & Plan (1) Pain and swelling of right lower extremity: Code(s): M79.604 - Pain in right leg; M79.89 - Other specified soft tissue disorders Category: Medical (2) Numbness of right hand: Code(s): R20.0 - Anesthesia of skin Category: Medical (3) Hyperesthesia: Code(s): R20.3 - Hyperesthesia Category: Medical (4) Migraine with aura: Code(s): G43.109 - Migraine with aura, not intractable, without status migrainosus Category: Medical (5) MCKENNA (obstructive sleep apnea): Code(s): G47.33 - Obstructive sleep apnea (adult) (pediatric) Category: Medical Plan For RLE swelling, hyperesthesia, and pain, and Right hand intermittent numbness: Check labs. RUE & RLE EMG/NCS. RLE venous US Will take the liberty of requesting vascular's opinion. Head/brain MRA- normal Monitor tremor, gait. Monitor parasomnias. Pt's PAP machine is not connected to a compliance portal. Will f/u on request previous HST report from [employer]. Resp company is [employer]. ? For overall headache management: Optimize good self-care, including but not limited to maintaining a healthy diet, adequate fluid intake, adequate sleep, and engaging in regular physical activity. Track headaches. ? For acute headache treatment: Continue Ubrelvy 50-100mg at onset of aura, MR in 2 hrs, max 200mg/day, may take w/ Tylenol- as pt has had good effect from use. Previous acute migraine medication trials: Sumtariptan- effective Acute migraine medication contraindications: Triptans- d/t a-fib dx. NSAIDs/Naproxen- d/t Eliquis use. ? For headache prevention medication: Continue Riboflavin 400mg qam Continue Magnesium 400mg qhs Continue Venlafaxine- ordered primarily for mood. Previous migraine prevention medication trials: Amitriptyline- ? effectiveness. Pt on Metoprolol for a-fib. Migraine prevention medication contraindications: Topiramate- d/t risk for worsening STM difficulties. Amitriptyline d/t a-fib dx. ? Will follow-up upon review of above and patient to follow-up in clinic in 6 months or sooner prn. Orders: Orders NE electromyogram (EMG) Today M79.604 - Pain in right leg, M79.89 - Other specified soft tissue disorders, R20.0 - Anesthesia of skin, R20.3 - Hyperesthesia NE nerve conduction velocity Today M79.604 - Pain in right leg, M79.89 - Other specified soft tissue disorders, R20.0 - Anesthesia of skin, R20.3 - Hyperesthesia US venous duplex LE RT Today M79.604 - Pain in right leg, M79.89 - Other specified soft tissue disorders, R20.3 - Hyperesthesia CRP High Sensitivity Today E78.5 - Hyperlipidemia, unspecified, I48.0 - Paroxysmal atrial fibrillation, M79.604 - Pain in right leg, M79.89 - Other specified soft tissue disorders, R20.0 - Anesthesia of skin, R20.3 - Hyperesthesia, R25.1 - Tremor, unspecified Complete Blood Count Auto Diff Today E78.5 - Hyperlipidemia, unspecified, I48.0 - Paroxysmal atrial fibrillation, M79.604 - Pain in right leg, M79.89 - Other specified soft tissue disorders, R20.0 - Anesthesia of skin, R20.3 - Hyperesthesia, R25.1 - Tremor, unspecified Comprehensive Met. Panel Today E78.5 - Hyperlipidemia, unspecified, I48.0 - Paroxysmal atrial fibrillation, M79.604 - Pain in right leg, M79.89 - Other specified soft tissue disorders, R20.0 - Anesthesia of skin, R20.3 - Hyperesthesia, R25.1 - Tremor, unspecified Erythrocyte Sedimentation Rate Today E78.5 - Hyperlipidemia, unspecified, I48.0 - Paroxysmal atrial fibrillation, M79.604 - Pain in right leg, M79.89 - Other specified soft tissue disorders, R20.0 - Anesthesia of skin, R20.3 - Hyperesthesia, R25.1 - Tremor, unspecified CAMMIE Reflex Titer and Pattern Today E78.5 - Hyperlipidemia, unspecified, I48.0 - Paroxysmal atrial fibrillation, M79.604 - Pain in right leg, M79.89 - Other specified soft tissue disorders, R20.0 - Anesthesia of skin, R20.3 - Hyperesthesia, R25.1 - Tremor, unspecified Rheumatoid Factor Today E78.5 - Hyperlipidemia, unspecified, I48.0 - Paroxysmal atrial fibrillation, M79.604 - Pain in right leg, M79.89 - Other specified soft tissue disorders, R20.0 - Anesthesia of skin, R20.3 - Hyperesthesia, R25.1 - Tremor, unspecified Vitamin B12 and Folate Today E78.5 - Hyperlipidemia, unspecified, I48.0 - Paroxysmal atrial fibrillation, M79.604 - Pain in right leg, M79.89 - Other specified soft tissue disorders, R20.0 - Anesthesia of skin, R20.3 - Hyperest hesia, R25.1 - Tremor, unspecified Ceruloplasmin Today E78.5 - Hyperlipidemia, unspecified, I48.0 - Paroxysmal atrial fibrillation, M79.604 - Pain in right leg, M79.89 - Other specified soft tissue disorders, R20.0 - Anesthesia of skin, R20.3 - Hyperesthesia, R25.1 - Tremor, unspecified Creatine Kinase Total Today E78.5 - Hyperlipidemia, unspecified, I48.0 - Paroxysmal atrial fibrillation, M79.604 - Pain in right leg, M79.89 - Other specified soft tissue disorders, R20.0 - Anesthesia of skin, R20.3 - Hyperesthesia, R25.1 - Tremor, unspecified Referrals Vascular Surgery Referral M79.604 - Pain in right leg, M79.89 - Other specified soft tissue disorders, R20.3 - Hyperesthesia Coding Level of Care Code Est Pt Level 4 (05620) Diagnoses Pain and swelling of right lower extremity M79.604; M79.89 Numbness of right hand R20.0 Hyperesthesia R20.3 Migraine with aura G43.109 MCKENNA (obstructive sleep apnea) G47.33
[2024-01-03 14:09] VITALS: BP 140/88; BMI 30.6
== END 2024-01-03 15:13 | disposition home or self-care (01) ==
PROVIDERS: PCP Nurse Practitioner Family; Visit Provider Nurse Practitioner Family
DX: M79.604 Pain in right leg (principal); M79.89 Other specified soft tissue disorders; R20.0 Anesthesia of skin; R20.3 Hyperesthesia; G43.109 Migraine with aura, not intractable, without status migrainosus; G47.33 Obstructive sleep apnea (adult) (pediatric)
CPT/HCPCS: 99214

== ENCOUNTER → 2024-01-03 14:01 | Outpatient (BNVA) | payer BC, SELFPAY | PROVIDERS: PCP Nurse Practitioner Family; Visit Provider Nurse Practitioner Family ==

== ENCOUNTER 2024-01-17 14:10 | Outpatient (REF) | payer BC, SELFPAY ==
--- NOTE | ~2024-01-17 | US_ITS ---
EXAMINATION: US TRIPLEX LOWER EXTREMITY, RIGHT CLINICAL INFORMATION: Right leg pain and discomfort COMPARISON: None available. TECHNIQUE: Color-flow triplex imaging with spectral analysis and compression Doppler were performed on the right lower extremity. FINDINGS: Respiratory variation, normal compression and augmented flow are noted throughout the right lower extremity. The visualized common femoral vein, superficial femoral vein, profunda femoral vein, popliteal vein and midcalf peroneal and posterior tibial venous segments show no evidence of deep venous thrombosis. There is no Romano's cyst. US/US venous duplex LE RT IMPRESSION: No evidence of deep venous thrombosis involving the right lower extremity. Electronically signed by: Will Calvin MD 01/17/2024 03:41 PM NIRANJAN RP
[2024-01-17 14:26] LABS: MANUAL DIFF FLAG NO
[2024-01-17 15:10] LABS: Basophils Absolute Auto 0.1 X10*3/uL (0.0-0.2); Eosinophils Absolute Auto 0.1 X10*3/uL (0.0-0.4); Eosinophils Percent Auto 2.5 % (0-4); Hematocrit 40.8 % (42.0-52.0); Hemoglobin 14.1 g/dl (14.0-18.0); Imm Gran Abs Auto 0.01 X10*3/uL (0.00-0.03); Imm Gran Pct Auto 0.2 % (0.0-0.4); Lymphocytes Absolute Auto 1.5 X10*3/uL (1.2-4.9); Lymphocytes Percent Auto 29.7 % (20-40); Mean Corpuscular HGB Conc 34.6 g/dl (31.0-36.0); Mean Corpuscular Hemoglobin 33.6 pg (27.0-33.0); Mean Corpuscular Volume 97.1 fL (80.0-98.0); Mean Platelet Volume 10.1 fL (9.4-12.4); Monocytes Absolute Auto 0.5 X10*3/uL (0.1-1.2); Neutrophils Absolute Auto 2.9 x10*3/uL (2.0-8.3); Neutrophils Percent Auto 56.6 % (45-73); Platelet Count 213 X10*3/uL (160-400); White Blood Count 5.2 X10*3/uL (4.8-10.8)
[2024-01-17 15:30] LABS: Rheumatoid Factor < 13.0 IU/mL (<15.0)
[2024-01-17 15:33] LABS: Alanine Aminotransferase 22 U/L (0-40); Albumin Level 4.1 g/dL (3.5-5.0); Alkaline Phosphatase 47 U/L (39-117); Anion Gap 13 (12-20); Aspartate Amino Transferase 21 U/L (5-37); Bilirubin Total 0.5 mg/dL (0.0-1.0); Blood Urea Nitrogen 14 mg/dL (9-16); Calcium 9.2 mg/dL (8.4-10.2); Carbon Dioxide 24 mmol/L (22-29); Chloride 110 mmol/L (96-108); Estimated Glomerular Filt Rate > 60; Glucose Random 112 mg/dL (60-115); Potassium 3.9 mmol/L (3.3-5.1); Sodium 143 mmol/L (135-145); Total Protein 6.7 g/dL (6.5-8.0)
[2024-01-17 15:43] LABS: Erythrocyte Sedimentation Rate 5 MM/HR (0-15)
[2024-01-17 15:58] LABS: Folate 12.7 ng/mL (> or = 4.0); Vitamin B12 506 pg/mL (200-900)
[2024-01-18 08:22] LABS: CRP High Sensitivity 1.5 mg/L
[2024-01-18 08:33] LABS: Ceruloplasmin 20 mg/dL (14-30)
[2024-01-23 13:29] LABS: Anti Nuclear Antibody Screen NEGATIVE (NEGATIVE)
== END 2024-01-17 14:11 | disposition home or self-care (01) ==
LOC: HO.US 14:10
PROVIDERS: PCP Nurse Practitioner Family; Visit Provider Nurse Practitioner Family
DX: R20.3 Hyperesthesia (principal); R25.1 Tremor, unspecified; E78.5 Hyperlipidemia, unspecified; I48.0 Paroxysmal atrial fibrillation; R20.0 Anesthesia of skin; M79.604 Pain in right leg; M79.89 Other specified soft tissue disorders
CPT/HCPCS: 36415; 80053; 82390; 82550; 82607; 82746; 85025; 85652; 86038; 86141; 86431; 93971

== ENCOUNTER 2024-02-03 14:03 | Outpatient (REF) | payer BC, SELFPAY ==
--- NOTE | 2024-02-03 14:06 | EMG_ITS ---
Chief complaint: Reports that 2 months ago started having right facial numbness, night time numbness right upper extremity, and now constant numbness on right plantar foot. Denies weakness. Reason for referral: Evaluate for neuropathy Referred by: Araceli Antunez NP Procedure done: Right lower extremity NCS/EMG Precautions and/or limitations: None The limb temperature was monitored continuously and remained between 32-36 degrees C during the performance of the NCS. Nerve Conduction Studies Anti Sensory Summary Table ?Stim Site NR Onset (ms) Norm Onset (ms) Peak (ms) Norm Peak (ms) O-P Amp (?V) Norm O-P Amp Site1 Site2 Delta-0 (ms) Dist (cm) Ian (m/s) Norm Ian (m/s) Right Sural Anti Sensory (Lat Mall) Calf ? 2.7 3.4 <4.0 10.2 >5.0 Calf Lat Mall 2.7 14.0 52 Motor Summary Table ?Stim Site NR Onset (ms) Norm Onset (ms) O-P Amp (mV) Norm O-P Amp iAmp (mV) Amp (1st) (%) Site1 Site2 Delta-0 (ms) Dist (cm) Ian (m/s) Norm Ian (m/s) Right Peroneal Motor (Ext Dig Brev) Ankle ? 3.8 <4.0 2.9 >2.5 3.0 100.0 Ankle Ext Dig Brev 3.8 0.0 B Fib ? 11.5 2.4 2.7 82.8 B Fib Ankle 7.7 32.5 42 >40 Poplt ? 12.5 2.3 2.6 79.3 Poplt B Fib 1.0 5.5 55 >40 Right Tibial Motor (Abd Rodriguez Brev) Ankle ? 3.4 <5 6.6 >2.5 9.1 100.0 Ankle Abd Rodriguez Brev 3.4 0.0 Knee ? 12.3 3.9 4.8 59.1 Knee Ankle 8.9 40.0 45 >40 EMG ?Side Muscle Nerve Root Ins Act Fibs Psw Amp Dur Poly Recrt Int Pat Comment Right AbdHallucis MedPlantar S1-2 Nml Nml Nml Nml Nml 0 Nml Complete Right AntTibialis Dp Br Peron L4-5 Nml Nml Nml Nml Nml 0 Nml Complete Right PostTibialis Tibial L5, S1 Nml Nml Nml Nml Nml 0 Nml Complete Right MedGastroc Tibial S1-2 Nml Nml Nml Nml Nml 0 Nml Complete Right VastusMed Femoral L2-4 Nml Nml Nml Nml Nml 0 Nml Complete FINDINGS: All motor and sensory nerves tested showed normal latencies, amplitudes and conduction velocities. Concentric needle EMG was performed in selected muscles of the right lower extremity. Study revealed signs of electric abnormalities as shown in the table above. IMPRESSION: 1. This is a normal study. 2. There is no electrodiagnostic evidence for peroneal neuropathy, tibial neuropathy, lumbosacral plexopathy, lumbar radiculopathy, or peripheral neuropathy. Thank you for your kind referral. Rachel Lazaro MD, [facility] Board Certified, [place] [employer] and Rehabilitation (ABPMR) Board Certified, [place] Board of Electrodiagnostic Medicine (ABEM) CODIN 0 [id number] MTDD
== END 2024-02-03 14:04 | disposition home or self-care (01) ==
LOC: HO.NEURO 14:03
PROVIDERS: PCP Nurse Practitioner Family; Visit Provider Nurse Practitioner Family
DX: M79.604 Pain in right leg (principal); R60.0 Localized edema; R20.0 Anesthesia of skin; R20.3 Hyperesthesia
CPT/HCPCS: 95886; 95908

== ENCOUNTER → 2024-02-03 14:06 | Outpatient (BNV) | payer BC, SELFPAY | PROVIDERS: PCP Nurse Practitioner Family; Visit Provider Physical Medicine & Rehabilitation | DX: R20.0 Anesthesia of skin (principal); R20.2 Paresthesia of skin | CPT/HCPCS: 95886; 95908 ==

== ENCOUNTER 2024-05-03 07:48 | Outpatient (AMB) | payer BC, SELFPAY ==
--- NOTE | 2024-05-03 07:31 | A.OFFVIS_ITS ---
Intake Visit Reasons: f/u med review *Android* [phone] Allergies celecoxib [From CELEBREX] Allergy (Unknown, Verified 01/03/24 14:11) HIVES penicillin G Allergy (Unknown, Verified 01/03/24 14:11) rash, swelling penicillin V Allergy (Unknown, Verified 01/03/24 14:11) hives Penicillins [PENICILLINS] Allergy (Unknown, Verified 01/03/24 14:11) HIVES HPI HPI f/u med review *Android* [phone]: Details: History of Present Illness The patient is a 63-year-old male presenting with right foot pain. The pain has been ongoing for approximately eight months. It is described as a sharp, burning sensation localized primarily to the fifth toe. The patient stands on his feet for approximately 12 hours a day due to occupational demands. He has previously seen a neurologist who conducted EMG and nerve conduction testing, both of which returned negative results for neuropathy. Despite these findings, the burning pain persists and is consistent with neuropathic characteristics. Review of Systems - Neurological: Reports burning pain in the right foot. Plan - Initiate treatment with a low dose of gabapentin for suspected neuropathic pain. - Perform an X-ray of the right foot for further evaluation. - Order additional laboratory tests to assess other potential causes of foot pain. Discussion Notes During the visit, I discussed with the patient that his symptoms are suggestive of neuropathy, despite negative EMG and nerve conduction studies. We agreed on initiating gabapentin to address the burning sensation in his foot. I explained the rationale behind obtaining an X-ray to further investigate structural ab normalities that might be contributing to his pain. Additional laboratory tests will be performed to rule out other possible underlying conditions. Follow-up was recommended to assess treatment efficacy and determine subsequent steps. Patient Instructions - Begin taking prescribed gabapentin as directed. - Obtain the ordered X-ray and complete lab testing as instructed. - Monitor the response to medication and report any changes or side effects. - Follow up as advised to review results and discuss further management. [facility] Medical History (Updated 05/03/24 @ 07:24 by Bladimir Pinzon [facility]) Migraines Eye injury Atrial fibrillation with rapid ventricular response Pulmonary nodules Bladder outlet obstruction Nocturia Weak urinary stream MCKENNA (obstructive sleep apnea) Surgical History H/O wrist surgery History of surgery Leukoplakia Family History Father CVD (cardiovascular disease) Alzheimer's disease Dementia Substance use disorder Abdominal aortic aneurysm (AAA) Mother Infection of spine Substance use disorder Paternal Aunt Diabetes mellitus Brother Abdominal aortic aneurysm (AAA) Sister Abdominal aortic aneurysm (AAA) Sister Heart aneurysm Sister No problems noted. Sister No problems noted. Social History Household Members: Spouse Housing: House Do you presently have visiting nurse or other home services: No Alcohol intake: former Patient Tobacco Use Status: Former Tobacco user Tobacco use type: Cigarette Years Smoked: 25 years e-Cigarette/Vaping Use: Never Used Second Hand Smoke Exposure: No service: Yes Current occupational status: employed Current occupation: [employer] Current occupational exposures/hazards: No Cognitive needs: No Hearing needs: No Vision needs: No Assessment & Plan Assessment & Plan (1) Hyperesthesia: Code(s): R20.3 - Hyperesthesia Category: Medical (2) Right foot pain: Code(s): M79.671 - Pain in right foot Category: Medical Plan . Orders: Orders XR foot RT 2V Today M79.671 - Pain in right foot, R20.3 - Hyperesthesia Comprehensive Met. Panel Today M79.671 - Pain in right foot, R20.3 - Hyperesthesia Lyme IgG/IgM w/reflex to WB Today M79.671 - Pain in right foot, R20.3 - Hyperesthesia Syphilis Screen Today M79.671 - Pain in right foot, R20.3 - Hyperesthesia Prostate Specific Antigen Scr Today Z12.5 - Encounter for screening for malignant neoplasm of prostate Complete Blood Count Auto Diff Today M79.671 - Pain in right foot, R20.3 - Hyperesthesia TSH reflex Free T4 Today M79.671 - Pain in right foot, R20.3 - Hyperesthesia Tick-borne Disease Molecular Today M79.671 - Pain in right foot, R20.3 - Hyperesthesia Medications: New gabapentin 100 mg PO BEDTIME 30 caps 2RF 30 days Coding Level of Care Code Tele Est Pt Level 3 (15076) Diagnoses Hyperesthesia R20.3 Right foot pain M79.671
== END 2024-05-03 07:50 | disposition home or self-care (01) ==
LOC: HO.HMCC 07:48
PROVIDERS: PCP Nurse Practitioner Family; Visit Provider Nurse Practitioner Family
DX: R20.3 Hyperesthesia (principal); M79.671 Pain in right foot

== ENCOUNTER 2024-05-08 12:09 | Outpatient (REF) | payer BC, SELFPAY ==
--- NOTE | ~2024-05-08 | XR_ITS ---
EXAMINATION: XR FOOT, RIGHT CLINICAL INFORMATION: R20.3 - Hyperesthesia COMPARISON: None available. TECHNIQUE: AP, lateral, and oblique views of the right foot. FINDINGS: No fracture, dislocation, or suspicious bone lesion. Normal plantar arch. Moderate osteoarthritis first MTP joint. Mild arthritis of the dorsal tarsometatarsal joints. The calcaneus demonstrates moderate plantar and dorsal spurs. Subtalar joints appear normal. The talus appears normal. No soft tissue abnormalities. XR/XR foot RT min 3V IMPRESSION: No acute findings right foot. Arthritic changes most significant first MTP joint. Electronically signed by: Yinka Watts MD 05/09/2024 10:30 AM NIRANJAN
== END 2024-05-08 12:10 | disposition home or self-care (01) ==
LOC: HO.HMGCX 12:09
PROVIDERS: PCP Nurse Practitioner Family; Visit Provider Nurse Practitioner Family
DX: R20.3 Hyperesthesia (principal); M79.671 Pain in right foot
CPT/HCPCS: 73630

== ENCOUNTER → 2024-05-08 12:11 | Outpatient (BNV) | payer BC, SELFPAY | PROVIDERS: PCP Nurse Practitioner Family; Visit Provider Radiology Diagnostic Radiology | DX: R20.3 Hyperesthesia (principal) | CPT/HCPCS: 73630 ==

== ENCOUNTER 2024-05-17 12:44 | Outpatient (REF) | payer BC, SELFPAY ==
[2024-05-17 16:31] LABS: MANUAL DIFF FLAG NO
[2024-05-17 16:41] LABS: Basophils Percent Auto 0.8 % (0-2); Eosinophils Absolute Auto 0.1 X10*3/uL (0.0-0.4); Eosinophils Percent Auto 2.3 % (0-4); Hematocrit 42.4 % (42.0-52.0); Hemoglobin 14.6 g/dl (14.0-18.0); Imm Gran Abs Auto 0.02 X10*3/uL (0.00-0.03); Imm Gran Pct Auto 0.4 % (0.0-0.4); Lymphocytes Absolute Auto 1.1 X10*3/uL (1.2-4.9); Mean Corpuscular HGB Conc 34.4 g/dl (31.0-36.0); Mean Corpuscular Hemoglobin 32.7 pg (27.0-33.0); Mean Corpuscular Volume 95.1 fL (80.0-98.0); Mean Platelet Volume 10.2 fL (9.4-12.4); Monocytes Absolute Auto 0.4 X10*3/uL (0.1-1.2); Neutrophils Absolute Auto 3.1 x10*3/uL (2.0-8.3); Neutrophils Percent Auto 64.5 % (45-73); Platelet Count 202 X10*3/uL (160-400); Red Blood Count 4.46 X10*6/uL (4.60-5.80); Red Cell Distribution Width 12.7 % (11.0-16.0); White Blood Count 4.8 X10*3/uL (4.8-10.8)
[2024-05-17 17:02] LABS: Alanine Aminotransferase 16 U/L (0-40); Albumin Level 4.1 g/dL (3.5-5.0); Alkaline Phosphatase 61 U/L (39-117); Anion Gap 11 (12-20); Aspartate Amino Transferase 21 U/L (5-37); Bilirubin Total 0.6 mg/dL (0.0-1.0); Blood Urea Nitrogen 11 mg/dL (9-16); Carbon Dioxide 25 mmol/L (22-29); Chloride 108 mmol/L (96-108); Estimated Glomerular Filt Rate > 60; Glucose Random 112 mg/dL (60-115); Potassium 4.3 mmol/L (3.3-5.1); Sodium 140 mmol/L (135-145)
[2024-05-17 17:18] LABS: Prostate Specific Antigen Scr 0.88 ng/mL (<0.05-4.0)
[2024-05-17 17:21] LABS: TSH reflex Free T4 0.35 uIU/mL (0.32-4.0)
[2024-05-18 09:15] LABS: Syphilis Screen Nonreactive (Nonreactive)
[2024-05-18 09:48] LABS: Lyme Abs Screen <0.90 index
[2024-05-18 20:48] LABS: A. Phagocytphilium DNA,RT-PCR NOT DETECTED (NOT DETECTED); Babesia Microti DNA, RT-PCR NOT DETECTED (NOT DETECTED); Borrelia Miyamotoi,DNA RT-PCR NOT DETECTED (NOT DETECTED); E.Chaffeensis DNA RT-PCR NOT DETECTED (NOT DETECTED); Lyme(Borrelia ssp)DNA RT-PCR NOT DETECTED (NOT DETECTED)
== END 2024-05-17 12:45 | disposition home or self-care (01) ==
LOC: HO.HMGCLDS 12:44
PROVIDERS: PCP Nurse Practitioner Family; Visit Provider Nurse Practitioner Family
DX: M79.671 Pain in right foot (principal); R20.3 Hyperesthesia; Z12.5 Encounter for screening for malignant neoplasm of prostate
CPT/HCPCS: 36415; 80053; 84153; 84443; 85025; 86617; 86618; 86780; 87468; 87469; 87478; 87484; 87798

== ENCOUNTER 2024-06-14 07:37 | Outpatient (AMB) | payer BC, SELFPAY ==
--- NOTE | 2024-06-14 07:33 | A.OFFPC_ITS ---
Intake Visit Reasons: 6 week follow up Allergies celecoxib [From CELEBREX] Allergy (Unknown, Verified 01/03/24 14:11) HIVES penicillin G Allergy (Unknown, Verified 01/03/24 14:11) rash, swelling penicillin V Allergy (Unknown, Verified 01/03/24 14:11) hives Penicillins [PENICILLINS] Allergy (Unknown, Verified 01/03/24 14:11) HIVES Medication List - Last Reconciled 06/14/24 by Bladimir Pinzon [facility] albuterol sulfate 90 mcg/actuation 1 inh inhalation QID PRN atorvastatin 20 mg PO BEDTIME azithromycin For 250 mg dose pack: take 500 mg today (day 1), then 250 mg for 4 days (days 2-5) PO cyclobenzaprine 10 mg PO BEDTIME fenofibrate 160 mg PO DAILY gabapentin 100 mg PO TID 30 days magnesium oxide 400 mg PO BEDTIME 30 days MDD 1 omeprazole 20 mg PO DAILY riboflavin (vitamin B2) 400 mg PO DAILY 30 days tamsulosin 0.4 mg PO BEDTIME 90 days ubrogepant (Ubrelvy) 50 - 100 mg (0.5 - 1 x 100 mg) PO ONCE PRN 30 days venlafaxine ER 150 mg PO DAILY Tobacco use date assessed: 06/07/23 Dental Screening Dental Screen Date: 06/07/23 HPI 6 week follow up HPI Details History of Present Illness The patient is a 63-year-old male presenting with a follow-up for neuropathy. E ight months ago, he noted swelling in the right lower extremity accompanied by neuropathy affecting his foot. Deep vein thrombosis was ruled out. He reports the swelling is more intermittent now and worsens with prolonged standing, typical by the end of his workday, and subsides following rest. He works long shifts, standing for about 12 hours a day, which seems to trigger the swelling, though not significant swelling (pt's description). The patient has seen a neurologist, underwent EMG testing with negative results, and is scheduled for a follow-up in a month. A referral to a vascular specia list has yet to be arranged. Complementary lumbar spine X-ray and foot imaging indicate degenerative changes mostly in the right first MTP joint, although neuropathy symptoms are generalized across the foot and are progressing to the left. Initial lumbar spine discomfort was noted when symptoms began. He started gabapentin therapy at a bedtime dose with no apparent change and will now be escalated to three doses daily, monitoring its efficacy. Review of Systems - Musculoskeletal: Reports lower back pa in, intermittent right lower extremity swelling. Denies signs of claudication. - Neurological: Reports neuropathy in th e feet, initially affecting the right, progressing toward the left. -denies any fevers, chills, N/V Plan The current management for neuropathy includes increasing gabapentin to 100 mg three times daily, with subsequent monitoring of its efficacy given the inadequate response to the initial bedtime regimen. A lumbar spine X-ray has been ordered to further explore any contribution from spinal issues, supported by foot evaluations showing degenerative changes. We will follow up with neurology within a month to reassess symptomatic progression, and it remains advisable to secure a vascular specialist consult to explore intermittent leg swelling's etiology, potentially linked to venous insufficiency. Discussion Notes I discussed with the patient the current understanding of his neuropathy and related conditions affecting his right lower extremity and the degenerative changes noted in the foot. We compared the risks and benefits of escalating his gabapentin medication to three times daily, given the suboptimal results at a bedtime dose. During this visit, I reiterated the importance of following up with neurology as planned, and I emphasized scheduling a consultation with a vascular specialist to exclude potential vascular causes of his symptoms. I also reviewed the expected timeline and rationale for the x-rays ordered for both the lumbar spine and foot. The patient expressed understanding and agreement with this approach and will update me on any changes or developments as they relate to his neuropathic symptoms. Patient Instructions - Begin taking gabapentin 100 mg three t imes daily. - Be vigilant about symptom changes or i mprovements and report back. - Continue with planned follow-up in [facility] next month. - Pursue a vascular consultation as disc ussed. - Conduct the lumbar spine and foot X-ra ys as ordered. - Monitor for any notable changes in sym ptoms, especially increased swelling or pain, and seek care sooner if they occur. [facility] Medical History Migraines Eye injury Atrial fibrillation with rapid ventricular response Pulmonary nodules Bladder outlet obstruction Nocturia Weak urinary stream MCKENNA (obstructive sleep apnea) Surgical History H/O wrist surgery History of surgery Leukoplakia Family History Father CVD (cardiovascular disease) Alzheimer's disease Dementia Substance use disorder Abdominal aortic aneurysm (AAA) Mother Infection of spine Substance use disorder Paternal Aunt Diabetes mellitus Brother Abdominal aortic aneurysm (AAA) Sister Abdominal aortic aneurysm (AAA) Sister Heart aneurysm Sister No problems noted. Sister No problems noted. Social History Household Members: Spouse Housing: House Do you presently have visiting nurse or other home services: No Alcohol intake: former Patient Tobacco Use Status: Former Tobacco user Tobacco use type: Cigarette Years Smoked: 25 years e-Cigarette/Vaping Use: Never Used Second Hand Smoke Exposure: No service: Yes Current occupational status: employed Current occupation: [employer] Current occupational exposures/hazards: No Cognitive needs: No Hearing needs: No Vision needs: No Questionnaire Thrive Questionnaire Date Thrive assessed: 06/07/23 AUDIT C Alcohol Use Questionnaire (AUDIT-C) 2. How many drinks containing alcohol do you have on a typical day when you are drinking?: 3 or 4 3. How often do you have six or more drinks on one occasion?: Monthly Total Score: 3 OSKAR-7 AMB Questionnaire OSKAR-7 Date OSKAR - 7 assessed: 06/07/23 Source: Developed by Drs. Theodore Fofana, Hail Deleon, James Barron and colleagues, with an educational meghan from [employer]. Physical exam (Primary Care) Tobacco/Smoking Status: Tobacco use Status Tobacco use date assessed 06/07/23 11/25/23 18:06 Patient Tobacco Use Status Former Tobacco user 11/25/23 18:06 Tobacco use type Cigarette 11/25/23 18:06 e-Cigarette/Vaping Use Never Used 11/25/23 18:06 Thrive Assessment: Date of Thrive Assessment Date Thrive assessed 06/07/23 11/25/23 18:06 Telehealth Telehealth Telehealth Platform: [facility] Location of provider rendering services: practice address Location of patient: address on file Patient Identification confirmed using: Name, : Yes Telehealth method: video Patient verbally consented to treatment: Yes Patient verbally consented to billing insurance company: Yes Patient informed of any privacy concerns related to visit: Yes Minutes spent on Phone/Video with Pt.: 19 Coding Level of Care Code Tele Est Pt Level 4 (88591) Diagnoses Neuropathy G62.9 Right foot pain M79.671 Lower back pain M54.50 Hyperesthesia R20.3 Assessment & Plan Assessment & Plan (1) Neuropathy: Code(s): G62.9 - Polyneuropathy, unspecified Category: Medical (2) Right foot pain: Code(s): M79.671 - Pain in right foot Category: Medical (3) Lower back pain: Code(s): M54.50 - Low back pain, unspecified Category: Medical (4) Hyperesthesia: Code(s): R20.3 - Hyperesthesia Category: Medical Plan . Orders: Orders Vitamin B6 Today G62.9 - Polyneuropathy, unspecified Tick-borne Disease Molecular Today G62.9 - Polyneuropathy, unspecified XR lumbar spine 2-3V Today M54.50 - Low back pain, unspecified Vitamin B12 Today G62.9 - Polyneuropathy, unspecified Syphilis Screen Today G62.9 - Polyneuropathy, unspecified Lyme IgG/IgM w/reflex to WB Today G62.9 - Polyneuropathy, unspecified Medications: Changed From gabapentin 100 mg PO BEDTIME 30 days 30 caps 2RF To gabapentin 100 mg PO TID 90 caps 2RF 30 days
== END 2024-06-14 08:22 | disposition home or self-care (01) ==
LOC: HO.HMCC 07:37
PROVIDERS: PCP Nurse Practitioner Family; Visit Provider Nurse Practitioner Family
DX: G62.9 Polyneuropathy, unspecified (principal); M79.671 Pain in right foot; M54.50 Low back pain, unspecified; R20.3 Hyperesthesia

== ENCOUNTER 2024-06-14 07:37 | Outpatient (REF) | payer BC, SELFPAY ==
--- NOTE | ~2024-06-14 | XR_ITS ---
EXAMINATION: XR LUMBOSACRAL SPINE CLINICAL INFORMATION: M54.50 - Low back pain, unspecified COMPARISON: None available. TECHNIQUE: Three views of the lumbosacral spine. FINDINGS: Multilevel syndesmophyte formation and marginal osteophyte formation involving the lower thoracic and lumbar spine. Endplate sclerosis decreased intervertebral disc height at L4-5 and L5-S1 level. No acute cortical disruption. No gross malalignment. No lytic or blastic lesions. XR/XR lumbar spine 2-3V IMPRESSION: Multilevel thoracolumbar spondylosis. Electronically signed by: Kevin Juarez MD 06/15/2024 08:22 AM EDT
[2024-06-14 17:12] LABS: Vitamin B12 581 pg/mL (200-900)
[2024-06-15 07:58] LABS: Syphilis Screen Nonreactive (Nonreactive)
[2024-06-15 17:19] LABS: A. Phagocytphilium DNA,RT-PCR NOT DETECTED (NOT DETECTED); Babesia Microti DNA, RT-PCR NOT DETECTED (NOT DETECTED); Borrelia Miyamotoi,DNA RT-PCR NOT DETECTED (NOT DETECTED); E.Chaffeensis DNA RT-PCR NOT DETECTED (NOT DETECTED); Lyme(Borrelia ssp)DNA RT-PCR NOT DETECTED (NOT DETECTED)
[2024-06-15 22:04] LABS: Lyme Abs Screen <0.90 index
[2024-06-18 13:14] LABS: Vitamin B6 12.5 ng/mL (2.1-21.7)
== END 2024-06-14 07:38 | disposition home or self-care (01) ==
LOC: HO.HMGCX 07:37
PROVIDERS: PCP Nurse Practitioner Family; Visit Provider Nurse Practitioner Family
DX: M54.50 Low back pain, unspecified (principal); G62.9 Polyneuropathy, unspecified; M79.671 Pain in right foot; R20.3 Hyperesthesia
CPT/HCPCS: 36415; 72100; 82607; 84207; 86617; 86618; 86780; 87468; 87469; 87478; 87484; 87798

== ENCOUNTER → 2024-06-14 13:17 | Outpatient (BNV) | payer BC, SELFPAY | PROVIDERS: PCP Nurse Practitioner Family; Visit Provider Radiology Diagnostic Radiology | DX: M47.815 Spondylosis without myelopathy or radiculopathy, thoracolumbar region (principal) | CPT/HCPCS: 72100 ==

== ENCOUNTER → 2024-07-25 15:23 | Outpatient (BNVA) | payer BC, SELFPAY | PROVIDERS: PCP Nurse Practitioner Family; Visit Provider Nurse Practitioner Family ==

== ENCOUNTER 2024-09-06 11:46 | Outpatient (AMB) | payer BC, SELFPAY ==
[2024-09-06 11:48] VITALS: BP 118/76; PULSE 119; TEMP 37.1; O2SAT 95; BMI 30.5
--- NOTE | 2024-09-06 11:48 | A.OFFPC_ITS ---
Vital Signs 09/06/24 11:48 09/06/24 12:23 Height 5 ft 10 in Weight 212 lb 8 oz BMI 30.5 BP 118/76 Blood Pressure Location Lt brachial Position Sitting Pulse 119 H 94 Pulse Source Pulse Oximeter Temp 98.7 F Temp Source Oral Pulse Oximetry (%) 95 Oxygen Delivery Method Room Air Intake Visit Reasons: f/u Allergies celecoxib (From CELEBREX) Allergy (Unknown, Verified 09/06/24 12:34) HIVES penicillin G Allergy (Unknown, Verified 09/06/24 12:34) rash, swelling penicillin V Allergy (Unknown, Verified 09/06/24 12:34) hives Penicillins (PENICILLINS) Allergy (Unknown, Verified 09/06/24 12:34) HIVES Medication List - Last Reconciled 09/06/24 by Bladimir Pinzon, [facility]- albuterol sulfate 90 mcg/actuation 1 inh inhalation QID PRN atorvastatin 20 mg PO BEDTIME carbidopa-levodopa 25-100 mg 0.5 - 1 tabs PO BID 30 days fenofibrate 160 mg PO DAILY gabapentin 100 mg PO TID 30 days gabapentin 100 mg PO BID hydrocodone-homatropine 5-1.5 mg/5 mL 5 mL PO QID PRN magnesium oxide 400 mg PO BEDTIME 30 days MDD 1 omeprazole 20 mg PO DAILY pregabalin (Lyrica) 225 mg PO BID riboflavin (vitamin B2) 400 mg PO DAILY 30 days tamsulosin 0.4 mg PO BEDTIME 90 days ubrogepant (Ubrelvy) 50 - 100 mg (0.5 - 1 x 100 mg) PO ONCE PRN 30 days venlafaxine ER 225 mg PO DAILY Tobacco use date assessed: 09/06/24 Dental Screening Dental Screen Date: 09/06/24 Did you have a dental visit in the last 12 months?: Yes Did you have a dental problem in the last 6 months where you did not have access to dental care?: No Was dental information given to patient?: Patient has dentist HPI f/u HPI Details Chief Complaint The patient reports numbness and tingling in his hands and short-term memory issues. History of Present Illness The patient is a 63-year-old male presenting with symptoms of neuropathy in the hands and memory issues. He reports ongoing numbness and tingling in his hands, which is suspected to be due to carpal tunnel syndrome, confirmed by a positive Tinel's sign on examination. The patient has worked most of his life with his hands, which may have contributed to this condition. He is a side sleeper and often flexes his elbows, raising the possibility of ulnar neuropathy /cubital tunnel syndrome. denies any shooting ramos down his BUE, or cervical neck pain The patient also reports experiencing short-term memory issues, noting an incident where he briefly lost track of his location despite being familiar with the area. A Mini-Mental State Examination scored 29/30, indicating near-normal cognitive function. Previous imaging for migraines in 2022 revealed nonspecific white matter T2 hyperintensities in the cerebral hemispheres bilaterally, with differential diagnoses including chronic ischemic microangiopathy, migraine, and less likely demyelinating disease. dyslipidemia: labs ordered Social History - Employment: Worked most of his life wi th his hands - Sleep: Side sleeper, often flexes elbo ws during sleep Health Maintenance Review of Systems - Neurological: Reports numbness and tin gling in hands, short-term memory issues - Respiratory: Denies cough, hemoptysis, or wheezing Physical Exam General: Cooperative, healthy appearing, comfortable, no acute distress and well developed Orientation: Patient oriented x3 Limitations: No limitations Head: Normal to inspection Ears: Hearing grossly normal bilaterally Nose: Normal external nose present Face and sinus: Normal facial exam Eyes: Appearance normal, both eyes and all related structures Neck: Normal visual inspection and Yes full ROM Respiratory: Normal respiratory effort and able to speak in complete sentences. Clear to auscultation bilaterally Cardiovascular: Regular rate and rhythm. Normal S1 and S2 GI: Normal to inspection. Soft to palpation and nontender Skin: No rashes or lesions noted Neuro: Patient oriented x3, reports ongoing neuropathy in hands with numbness and tingling, positive Tinel's test, mini mental exam 29/30, CN2-12 intact Extremities: Normal to inspection, elbow flexion noted, possible ulnar neuropathy or cubital tunnel syndrome, using wrist splints at night Results - Imaging: Previous brain imaging in showed nonspecific white matter T2 hyperintensities in the cerebral hemispheres bilaterally - Differential: Chronic ischemic microan giopathy, migraine, less likely demyelinating disease Plan The patient will begin using wrist splints at night to manage carpal tunnel syndrome symptoms. Additionally, he is advised to wrap a towel around his elbows to prevent flexion during sleep, which may alleviate symptoms of ulnar neuropathy. For memory issues, the patient is encouraged to discuss these symptoms with his neurologist, especially considering the previous imaging findings of nonspecific white matter changes. Continued monitoring of cognitive function is recommended, with a follow-up Mini-Mental State Examination planned for future visits. Discussion Notes I discussed with the patient the likelihood of carpal tunnel syndrome and the potential for ulnar neuropathy, recommending wrist splints and elbow positioning as initial management strategies. We also reviewed his memory concerns, advising him to bring these up with his neurologist, given the previous imaging results. Follow-up care will include monitoring cognitive function and reassessing with a Mini-Mental State Examination. Patient Instructions - Use wrist splints at night to help wit h hand symptoms. - Wrap a towel around your elbows to brody p them straight while sleeping. - Discuss memory issues with your neurol ogist at your next appointment. - Follow up for a Mini-Mental State Exam ination in future visits. [facility] Medical History Migraines Eye injury Atrial fibrillation with rapid ventricular response Pulmonary nodules Bladder outlet obstruction Nocturia Weak urinary stream MCKENNA (obstructive sleep apnea) Surgical History H/O wrist surgery History of surgery Leukoplakia Family History Father CVD (cardiovascular disease) Alzheimer's disease Dementia Substance use disorder Abdominal aortic aneurysm (AAA) Mother Infection of spine Substance use disorder Paternal Aunt Diabetes mellitus Brother Abdominal aortic aneurysm (AAA) Sister Abdominal aortic aneurysm (AAA) Sister Heart aneurysm Sister No problems noted. Sister No problems noted. Social History Household Members: Spouse Housing: House Do you presently have visiting nurse or other home services: No Alcohol intake: former Patient Tobacco Use Status: Former Tobacco user Tobacco use type: Cigarette Years Smoked: 25 years e-Cigarette/Vaping Use: Never Used Second Hand Smoke Exposure: No service: Yes Current occupational status: employed Current occupation: [employer] Current occupational exposures/hazards: No Cognitive needs: No Hearing needs: No Vision needs: No Questionnaire PHQ-9 Over the last 2 weeks, how often have you been bothered by any of the following problems? 1. Little interest or pleasure in doing things: not at all 2. Feeling down, depressed, or hopeless: not at all 3. Trouble falling or staying asleep, or sleeping too much: several days 4. Feeling tired or having little energy: several days 5. Poor appetite or overeating: not at all 6. Feeling bad about yourself - or that you are a failure or have let yourself or your family down: not at all 7. Trouble concentrating on things, such as reading the newspaper or watching television: not at all 8. Moving or speaking so slowly that other people could have noticed. Or the opposite - being so fidgety or restless that you have been moving around a lot more than usual: not at all 9. Thoughts that you would be better off or of hurting yourself in some way: not at all Total score: 2 Depression Screening Interpretation: Negative Depression Screening Done: Yes 00717 - PHQ-9 Billing: Yes Source: Developed by Drs. Theodore Fofana, Hali Deleon, James Barron and colleagues, with an educational meghan from [employer]. Thrive Questionnaire Date Thrive assessed: 09/03/24 I am a: Patient What is your living situation today?: I have a steady place to live Within the past 12 months, did the food you bought not last and you didn't have the money to get more?: Sometimes True Within the past 12 months, did you worry whether your food would run out before you got money to buy more?: Never true Do you have trouble paying for medicines?: No Do you have trouble getting transportation to medical appointments?: No Do you have trouble paying your heating and electricity bill?: No Do you have trouble taking care of your child, family member or friend?: No Do you have trouble with day-to-day activities such as bathing, preparing meals, shopping, managing finances, etc.?: No Are you currently unemployed and looking for a job?: No Are you interested in more education?: No Please select the resources that you would like help with: None Currently or been in a relationship where the following occur: No concerns reported THRIVE Score: 1 AUDIT C Alcohol Use Questionnaire (AUDIT-C) 1. How often do you have a drink containing alcohol?: 4 or more times a week 2. How many drinks containing alcohol do you have on a typical day when you are drinking?: 1 or 2 3. How often do you have six or more drinks on one occasion?: Never Total Score: 4 OSKAR-7 AMB Questionnaire OSKAR-7 Date OSKAR - 7 assessed: 09/06/24 Feeling nervous, anxious, or on edge: 0 = Not at all Not being able to stop or control worryin = Not at all Worrying too much about different things: 0 = Not at all Trouble relaxin = Several days Being so restless that it is hard to sit still: 1 = Several days Becoming easily annoyed or irritable: 1 = Several days Feeling afraid as if something awful might happen: 0 = Not at all Total OSKAR-7 score (0-4 normal; 5-9 mild; 10-14 moderate; 15-21 severe): 3 Source: Developed by Drs. Theodore Fofana, Hali Deleon, James Barron and colleagues, with an educational meghan from [employer]. OSKAR-7 Assessment Billing OSKAR-7 Assessment Tool: OSKAR-7 Assessment 50921 Physical exam (Primary Care) Vital Signs: Last Vital Signs Temp 98.7 F 09/06/24 11:48 Pulse 119 H 09/06/24 11:48 BP 118/76 09/06/24 11:48 Pulse Ox 95 09/06/24 11:48 Oxygen Delivery Method Room Air 09/06/24 11:48 BMI result Body Mass Index 30.5 Tobacco/Smoking Status: Tobacco use Status Tobacco use date assessed 09/06/24 09/06/24 11:55 Patient Tobacco Use Status Former Tobacco user 09/06/24 11:55 Tobacco use type Cigarette 09/06/24 11:55 e-Cigarette/Vaping Use Never Used 09/06/24 11:55 PHQ-9: PHQ-9 Score PHQ-9: Total score 2 09/06/24 11:55 Depression Screening Interpretation: Negative Thrive Assessment: Date of Thrive Assessment Date Thrive assessed 09/03/24 09/06/24 11:55 Currently or been in a relationship where the following occur: No concerns reported Coding Level of Care Code Est Pt Level 4 (74553) Diagnoses Dyslipidemia E78.5 Numbness in both hands R20.0 Memory loss R41.3 Additional Codes OSKAR-7 Assessment Billing - OSKAR-7 Assessment Tool: OSKAR-7 Assessment 50828 ([id number]) PHQ-9 - 75743 - PHQ-9 Billing: Yes ([id number]) Assessment & Plan Assessment & Plan (1) Dyslipidemia: Code(s): E78.5 - Hyperlipidemia, unspecified Category: Medical (2) Numbness in both hands: Code(s): R20.0 - Anesthesia of skin Category: Medical Plan: . (3) Memory loss: Code(s): R41.3 - Other amnesia Category: Medical Plan . Orders: Orders Comprehensive [place]. Panel Fast Today E78.5 - Hyperlipidemia, unspecified Lipid Panel Today E78.5 - Hyperlipidemia, unspecified
[2024-09-06 12:23] VITALS: PULSE 94
== END 2024-09-06 12:27 | disposition home or self-care (01) ==
LOC: HO.HMCC 11:47
PROVIDERS: PCP Nurse Practitioner Family; Visit Provider Nurse Practitioner Family
DX: E78.5 Hyperlipidemia, unspecified (principal); R20.0 Anesthesia of skin; R41.3 Other amnesia

== ENCOUNTER → 2024-09-06 11:46 | Outpatient (BNVA) | payer BC, SELFPAY | PROVIDERS: PCP Nurse Practitioner Family; Visit Provider Nurse Practitioner Family | DX: R20.0 Anesthesia of skin (principal); R20.2 Paresthesia of skin; G56.00 Carpal tunnel syndrome, unspecified upper limb; E78.5 Hyperlipidemia, unspecified; R41.3 Other amnesia | CPT/HCPCS: 96127 ==

== ENCOUNTER 2024-10-09 15:25 | Outpatient (AMB) | payer BC, SELFPAY ==
--- NOTE | 2024-10-09 15:39 | MHC.OFFVIS ---
Vital Signs 10/09/24 15:40 Height 5 ft 10 in Weight 216 lb 0.848 oz BMI 31.0 BP 120/80 Blood Pressure Location Lt brachial Position Sitting Pulse 86 Intake Visit Reasons: 1 Year Follow up Intake Note: 1 year follow-up with ekg hearts doing ok Manager Content Required: No Game Programer: Game Programer Present Accompanied by: Spouse Allergies celecoxib (From CELEBREX) Allergy (Unknown, Verified 09/06/24 12:34) HIVES penicillin G Allergy (Unknown, Verified 09/06/24 12:34) rash, swelling penicillin V Allergy (Unknown, Verified 09/06/24 12:34) hives Penicillins (PENICILLINS) Allergy (Unknown, Verified 09/06/24 12:34) HIVES Medication List - Last Reconciled 10/09/24 by José Manuel Allen MD albuterol sulfate 90 mcg/actuation 1 inh inhalation QID PRN atorvastatin 20 mg PO BEDTIME carbidopa-levodopa 25-100 mg 0.5 - 1 tabs PO BID 30 days fenofibrate 160 mg PO DAILY gabapentin 100 mg PO BID hydrocodone-homatropine 5-1.5 mg/5 mL 5 mL PO QID PRN magnesium oxide 400 mg PO BEDTIME 30 days MDD 1 omeprazole 20 mg PO DAILY pregabalin (Lyrica) 225 mg PO BID riboflavin (vitamin B2) 400 mg PO DAILY 30 days tamsulosin 0.4 mg PO BEDTIME 90 days ubrogepant (Ubrelvy) 50 - 100 mg (0.5 - 1 x 100 mg) PO ONCE PRN 30 days venlafaxine ER 225 mg PO DAILY HPI Comments Details: Nehemiah comes for follow-up. Complains of intermittent memory loss. However he does remember details of his issues. Does not use his CPAP regularly. Also uses alcohol on non working days as per him. Denies any prolonged palpitation irregular heartbeat. No exertional chest pain or shortness of breath. No lightheadedness, syncope. No orthopnea, PND, leg edema. Takes his current medications. Does complain of lightheadedness after he has been cramped up and bent over and then gets up suddenly. He is trying to change in his lifestyle around that. Maintains adequate hydration. [facility] Medical History Migraines Eye injury Atrial fibrillation with rapid ventricular response Pulmonary nodules Bladder outlet obstruction Nocturia Weak urinary stream MCKENNA (obstructive sleep apnea) Surgical History H/O wrist surgery History of surgery Leukoplakia Family History Father CVD (cardiovascular disease) Alzheimer's disease Dementia Substance use disorder Abdominal aortic aneurysm (AAA) Mother Infection of spine Substance use disorder Paternal Aunt Diabetes mellitus Brother Abdominal aortic aneurysm (AAA) Sister Abdominal aortic aneurysm (AAA) Sister Heart aneurysm Sister No problems noted. Sister No problems noted. Social History Household Members: Spouse Housing: House Do you presently have visiting nurse or other home services: No Alcohol intake: former Patient Tobacco Use Status: Former Tobacco user Tobacco use type: Cigarette Years Smoked: 25 years e-Cigarette/Vaping Use: Never Used Second Hand Smoke Exposure: No service: Yes Current occupational status: employed Current occupation: [employer] Current occupational exposures/hazards: No Cognitive needs: No Hearing needs: No Vision needs: No Review of Systems Const Denies chills, Denies fatigue, Denies fever(s), Denies frequent falls, Denies weakness, Denies weight gain and Denies weight loss ENT Denies dizziness Card Denies chest pain, Denies leg edema, Denies lightheadedness, Denies palpitations, Denies dyspnea, Denies dyspnea on exertion, Denies orthopnea and Denies other (loss of consciousness) Resp Denies cough, Denies dyspnea and Denies dyspnea on exertion GI Denies hematochezia and Denies change in stool character Musc Denies abnormal gait, Denies muscle weakness, Denies numbness, Denies radiating pain into limb and Denies tingling Neuro Denies abnormal gait, Denies dizziness, Denies frequent falls, Denies numbness, Denies tingling and Denies weakness Endo Denies fatigue and Denies palpitations Physical Exam Vital Signs: Last Vital Signs Pulse 86 10/09/24 15:40 BP 120/80 10/09/24 15:40 BMI result Body Mass Index 31.0 Const General: cooperative, comfortable, no acute distress, well developed, alert, awake and well groomed Nutritional Appearance: well nourished and overweight Orientation/consciousness: patient oriented x3 Limitations: no limitations Neck Neck: Yes trachea midline, Yes supple and Yes no JVD Resp Effort & Inspection: normal respiratory effort Auscultation: clear to auscultation bilaterally Cardio Jugular venous distension: no JVD Palpation: normal PMI Rate: regular rate Rhythm: regular rhythm Heart sounds: S1 normal heart sound present, S2 normal heart sound present, no click, no gallops, no murmurs and no rubs GI Auscultation: normal bowel sounds Skin General skin exam: no rashes or lesions noted Neuro General: patient oriented x3 and no focal motor deficits Extrem General: Yes no clubbing, cyanosis or edema Office Procedures EKG Details: EKG shows normal sinus rhythm with normal EKG with normal axis and normal intervals [id number], Complete Assessment & Plan Assessment & Plan (1) Paroxysmal atrial fibrillation: Code(s): I48.0 - Paroxysmal atrial fibrillation Category: Medical Plan: Paroxysmal atrial fibrillation without any obvious clinical recurrence at this point time. No change in pharmacotherapy is indicated. Continue to avoid stimulants especially alcohol and this was discussed. Continue to use CPAP therapy. Encouraged to continue to monitor for signs or symptoms. No indication for oral anticoagulation therapy given low risk for thromboembolic complication. (2) Orthostatic lightheadedness: Code(s): R42 - Dizziness and giddiness Plan: Orthostatic lightheadedness in the setting of possible parkinsonian syndrome. Currently has not had any syncopal episodes. Mechanism of orthostatic lightheadedness was discussed. Advised to maintain adequate hydration. Lifestyle modification orthostatic precautions were discussed. Will follow up in the clinic in 1 year's time, sooner p.r.n.. Thank you for allowing me to partake in his care Coding Level of Care Code Est Pt Level 4 (93306) Complex EM visit Add On G2211 Diagnoses Paroxysmal atrial fibrillation I48.0 Orthostatic lightheadedness R42 CPT Codes EKG - CPT: 73684-[id number], Complete ([id number])
[2024-10-09 15:40] VITALS: BP 120/80; PULSE 86; BMI 31.0
--- OUTSIDE RECORDS SUMMARY | 2024-10-09 16:14 | XMS_ITS | Encounter Summary ---
Author Organization [facility] Address [address] [facility] [address] [place] [phone] Phone Care Team Providers Care Professor Of Biology Name Role Phone Bladimir Pinzon STRANDING SUPERVISOR Primary Care Provider + Encounter Details Date Type Department Care Team (Late Contact Info) Description 02/12/2021 Procedure Pass [facility], Ct Scan - [address] [address] Social History Tobacco Use Types Packs/Day Years Used Date Smoking Tobacco: Former Cigarettes 1.5 25 1 04/06/1971 - 02/04/1997 Smokeless Tobacco: Never Alcohol Use Standard Drinks/Week Comments Yes 12 (1 standard drink = 0.6 oz pu re alcohol) Sex and Gender Information Value Date Recorded Sex Assigned at Male 07/23/2020 11:42 PM EDT Legal Sex Male 9:47 PM EDT Gender Identity Male 07/23/2020 11:42 PM EDT Sexual Orientation Straight 07/23/2020 11 :42 PM EDT documented as of this encounter Plan of Treatment Upcoming Encounters Date Type Department Care Team (Late st Contact Info) Description 03/15/2025 8:20 AM EST Office Visit [facility] Pulmonary, Allergy and Critical Care Medicine [address] [facility] [place] [address] Juanita Rae MD [address] [facility] 2nd [place] [address] documented as of this encounter Visit Diagnoses Not on filedocumented in this encounter Care Teams Professor Of Biology Relationship Specialty Start Date End Date Bladimir Pinzon NP [address] [place] [address] [email or web address] PCP - General Family Medicine 02/12/21 documented as of this encounter Additional Source Comments The information contained in this document represents components of the legal health record. It is not the complete legal health record.[facility]
== END 2024-10-09 16:01 | disposition home or self-care (01) ==
LOC: HO.HCS 15:27
PROVIDERS: PCP Nurse Practitioner Family; Visit Provider Internal Medicine Cardiovascular Disease
DX: I48.0 Paroxysmal atrial fibrillation (principal); R42 Dizziness and giddiness
CPT/HCPCS: 93010; 99214

== ENCOUNTER → 2024-10-09 15:25 | Outpatient (BNVA) | payer BC, SELFPAY | PROVIDERS: PCP Nurse Practitioner Family; Visit Provider Internal Medicine Cardiovascular Disease | DX: I48.0 Paroxysmal atrial fibrillation (principal) | CPT/HCPCS: 93005 ==

== ENCOUNTER → 2024-12-27 11:04 | Outpatient (BNVA) | payer OTHER, SELFPAY | PROVIDERS: Visit Provider Physician Assistant | DX: M25.532 Pain in left wrist (principal); R60.1 Generalized edema | CPT/HCPCS: 73110; 99204 ==

== ENCOUNTER → 2025-01-04 08:54 | Outpatient (BNVA) | payer OTHER, SELFPAY | PROVIDERS: Visit Provider Physician Assistant | DX: M25.532 Pain in left wrist (principal); G62.9 Polyneuropathy, unspecified | CPT/HCPCS: 99213 ==

== ENCOUNTER → 2025-02-11 08:05 | Outpatient (BNVA) | payer OTHER, SELFPAY | PROVIDERS: Visit Provider Emergency Medicine | DX: M25.532 Pain in left wrist (principal); G62.9 Polyneuropathy, unspecified | CPT/HCPCS: 99214 ==

== ENCOUNTER 2025-02-16 10:27 | Outpatient (REF) | payer OTHER, BC, SELFPAY ==
--- OUTSIDE RECORDS SUMMARY | 2025-02-16 10:31 | XMS_ITS | Encounter Summary ---
Author Organization [facility] Address [address] [facility] [address] [place] [phone] Phone Care Team Providers Care Stock Control Supervisor Name Role Phone Bladimir Pinzon FIRMWARE SOFTWARE VERIFICATION ENGINEER Primary Care Provider + Encounter Details Date Type Department Care Team (Late Contact Info) Description 02/12/2021 Procedure Pass [facility], Ct Scan - [address] [address] Social History Tobacco Use Types Packs/Day Years [...] Pulmonary, Allergy and Critical Care Medicine 10 [place] [address] Juanita Rae MD 10 [facility] 2nd [place] [address] documented as of this encounter Visit Diagnoses Not on filedocumented in this encounter Care Teams Stock Control Supervisor Relationship Specialty Start Date End Date Bladimir Pinzon NP [address] [place] [address] PCP - General Family Medicine 02/12/21 documented as of this encounter Additional Source Comments The information contained in this document represents components of the legal health record. It is not the complete legal health record.[facility]
--- OUTSIDE RECORDS SUMMARY | 2025-02-16 10:32 | XMS_ITS | Encounter Summary ---
Author Organization [facility] Address [address] [facility] [address] [place] [phone] Phone Care Team Providers Care Biomedical Service Engineer Name Role Phone Bladimir Pinzon WRAPPER SHEETER Primary Care Provider + Encounter Details Date Type Department Care Team (Late st Contact Info) Description 12/05/2023 Procedure Pass [facility], Ct Scan - [address] [address] Social History Tobacco Use Types Packs/Day Years Used Date Smoking Tobacco: Former Cigarettes 1.5 25 1 04/06/1971 - 02/04/1997 Smokeless Tobacco: Never Alcohol Use Standard Drinks/Week Comments Yes 12 (1 standard drink = 0.6 oz pu re alcohol) Education Answer Date Recorded Are you interested in more education? Not on markos e 07/09/2022 Are you concerned about learning? Not on file 07/09/2022 No 07/09/2022 No 07/09/2022 Digital Access Answer Date Recorded No 08/07/2022 No 08/07/2022 Reliable internet access at home? Not on file 08/07/2022 Device with a working camera? Not on file Sex and Gender Information Value Date Recorded [...] Pulmonary, Allergy and Critical Care Medicine [address] [facility] [place] [address] Juanita Rae MD [address] [address] [email or web address] documented as of this encounter Visit Diagnoses Not on filedocumented in this encounter Care Teams Biomedical Service Engineer Relationship Specialty Start Date End Date Bladimir Pinzon NP [address] [facility] [place] [address] PCP - General Family Medicine 02/12/21 documented as of this encounter Additional Source Comments The information contained in this document represents components of the legal health record. It is not the complete legal health record.[facility]
--- OUTSIDE RECORDS SUMMARY | 2025-02-16 10:32 | XMS_ITS | Encounter Summary ---
Author Organization [facility] Address [address] [facility] [address] [place] [address] Phone Care Team Providers Care Power Press Tender Name Role Phone Des Cao MD Primary Care Provider +1- [phone] Bladimir Pinzon NP Primary Care Provider + Encounter Details Date Type Department Care Team (Late Contact Info) Description 08/08/2020 Prep for Surgery [facility] Orthopedics & Sports Medicine [address] [place] [address] Clemencia Berry MD [address] [place] [address] Orthopedics & Sports Medicine, [facility] [place] [address] [email or web address] Social History Tobacco Use Types Packs/Day Years [...] Encounters Date Type Department Care Team (Late Contact Info) Description 03/15/2025 8:20 AM EST Office Visit [facility] Pulmonary, Allergy and Critical Care Medicine 10 [facility] [place] [address] Juanita Rae MD 10 [facility] 2nd [place] [address] [email or web address] documented as of this encounter Visit Diagnoses Not on filedocumented in this encounter Care Teams Power Press Tender Relationship Specialty Start Date End Date Des Cao MD [email or web address] PCP - General Internal Medicine 02/01/17 02/11/21 Bladimir Pinzon NP [address] [facility] [place] [address] PCP - General Family Medicine 02/12/21 documented as of this encounter Additional Source Comments The information contained in this document represents components of the legal health record. It is not the complete legal health record.[facility]
--- OUTSIDE RECORDS SUMMARY | 2025-02-16 10:32 | XMS_ITS | Encounter Summary ---
Author Organization [facility] Address [address] [address] Phone Care Team Providers Care Turret Lathe Tender Name Role Phone Bladimir Pinzon SHEAR OPERATOR HELPER Primary Care Provider + Reason for Visit * Reason Onset Date Comments Medication Refill 04/25/2023 Encounter Details Date Type Department Care Team ([facility] st Contact Info) Description 04/25/2023 Telephone [facility] Pulmonary, Allergy and Critical Care Medicine 10 [facility] [place] [address] Key Ordoñez [email or web address] Medication Refill Social History Tobacco Use Types Packs/Day Years [...] PM EDT documented as of this encounter Progress Notes * Juanita Rae MD - 05/18/2023 2:12 PM EST PFTs normal. Consider adding Lyrica. * Key Ordoñez MA - 04/25/2023 1:51 PM EST Called pt- LVM informing the pt to call the office back [phone] to so we camn refill his medication (Hydrocodone) documented in this encounter Plan of Treatment Upcoming Encounters Date Type Department Care Team (Late st Contact Info) Description 03/15/2025 8:20 AM EST Office Visit [facility] Pulmonary, Allergy and Critical Care Medicine [address] [place] [address] Juanita Rae MD [address] [place] [phone] documented as of this encounter Visit Diagnoses Not on filedocumented in this encounter Care Teams Turret Lathe Tender Relationship Specialty Start Date End Date Bladimir Pinzon NP [address] [facility] [place] [address] PCP - General Family Medicine 02/12/21 documented as of this encounter Additional Source Comments The information contained in this document represents components of the legal health record. It is not the complete legal health record.[facility]
--- OUTSIDE RECORDS SUMMARY | 2025-02-16 10:32 | XMS_ITS | Clinical Summary ---
Author Organization [facility] Address [address] [facility] [address] [place] [address] Phone Care Team Providers Care Ironer Sock Name Role Phone Bladimir Pinzon CORPORATE RECEPTIONIST Primary Care Provider + Allergies Active Allergy Reactions Criticality Noted Date Comments Celecoxib 02/01/2017 Penicillins 04/04/2017 Medications fenofibrate (LOFIBRA) 160 MG tablet Take 160 mg by mouth daily. Active esomeprazole (NEXIUM) 20 MG capsule Take 20 mg by mouth 2 (two) times a day. Active cinnamon bark (CINNAMON) 500 mg capsule Take 1,000 mg by mouth 2 (two) times a day. Active CETIRIZINE HCL (ALLERGY RELIEF, CETIRIZINE, ORAL) Take by mouth. Activ e glucosamine 500 mg Cap Take 500 mg by mouth 2 (two) times a day. Active Medication-Free TextIndications :Bipap Indications: Bipap Active tamsulosin (FLOMAX) 0.4 mg Cap Take 0.4 mg by mouth daily. Active phenylephrine (SUDAFED PE) 10 MG Tab Take 10 mg by mouth daily. Active ARIPIPRAZOLE ORAL Take by mouth. Activ e venlafaxine (EFFEXOR-XR) 150 MG 24 hr capsule 1 Active magnesium oxide (MAG-OX) 400 mg (241.3 mg elemental) tablet TAKE 1 TABLET BY MOUTH AT BEDTIME FOR 30 DAYS. MAX DAILY 1 TABLET FILL 3 Active omeprazole (PRILOSEC) 20 MG capsule Take 1 capsule by mouth every morning. 4 Active atorvastatin (LIPITOR) 20 MG tablet Take 20 mg by mouth nightly at bedtime. at bedtime. 5 Active gabapentin (NEURONTIN) 100 MG capsule Take 100 mg by mouth nightly at bedtime. 5 Active pregabalin (LYRICA) 225 MG capsule Take 1 capsule (225 mg total) by mouth 2 (two) times a day. 60 capsule 5 5 Active carbidopa-levod opa (SINEMET) 25-100 mg per tablet TAKE 1/2 TO 1 TABLET BY MOUTH TWICE DAILY WITH A CRACKER 30 MINUTES BEFORE BREAKFAST AND DINNER 5 Active UBRELVY 100 mg tablet PLEASE SEE ATTACHED FOR DETAILED DIRECTIONS 5 Active venlafaxine (EFFEXOR-XR) 75 MG 24 hr capsule 5 Active HYDROcodone-miguel ángel atropine (HYDROMET) 5-1.5 mg/5 mL syrupIndication s:Chronic cough Take 5 mL by mouth 4 (four) times a day as needed (cough). Partial fill is okay. 240 mL 5 Active Active Problems Problem Noted Date Diagnosed Date Ankylosing hyperostosis of multiple sites in spi ne 06/11/2019 Assessment & Plan (06/11/2019 3:00 PM EDT): CT with hyperostosis of thoracic spine. Will defer to PCP. Pulmonary nodules 11/14/2018 Assessment & Plan (06/04/2024 12:19 PM EDT): Pulmonary nodules show no progression over the past three years. Recent CT scan confirms no change, and he is not smoking. - No further CT scans are needed at this time. Assessment & Plan (12/05/2023 9:39 AM EDT): Multiple minute pleural base pulmonary nodules noted on CT scan in 2021. -Order follow-up CT scan to assess for any changes in nodules. Assessment & Plan (04/21/2023 11:53 AM EST): Consider repeat CT chest for minute pleural based pulm nodules at next visit. Assessment & Plan (02/12/2021 3:54 PM EST): Repeat CT chest ordered. Patient refused PFTs. Assessment & Plan (11/14/2018 8:37 AM EDT): Due for repeat CT chest now to follow-up minute pleural based pulm nodules. Hepatocellular injury 07/06/2017 Assessment & Plan (07/06/2017 9:25 AM EDT): Ultrasound with mild hepatocellular injury. No evidence of cirrhosis or portal vein thrombosis. Patient advised to discontinue EtOH. Right upper quadrant abdominal pain 04/04/2017 Assessment & Plan (04/04/2017 10:13 AM EST): Unusual description of right upper quadrant pain. Given increased alcohol and Tylenol consumption will check right upper quadrant ultrasound with Dopplers. Patient advised to quit drinking. 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 Following with ENT. Assessment & Plan (12/06/2017 11:45 AM EDT): Vocal cords look normal during the bronchoscopy. Following up with ENT routinely. Assessment & Plan (10/11/2017 7:26 PM EDT): Recommend follow-up with ENT. Recurrent leukoplakia could be contributing to cough. Assessment & Plan (07/06/2017 9:22 AM EDT): Recommend continued follow-up with ENT Assessment & Plan (02/04/2017 7:43 PM EST): Will try to obtain ENT records from Dr. Painting's office. Obstructive sleep apnea on CPAP 02/04/2017 Overview (02/04/2017): on BiPAP Assessment & Plan (04/21/2023 11:52 AM EST): Cont BiPAP therapy. Assessment & Plan (06/04/2021 9:52 AM EDT): Recommend follow through on getting a replacement BiPAP machine. Assessment & Plan (06/11/2019 1:37 PM EDT): Continue BiPAP Assessment & Plan (11/14/2018 8:38 AM EDT): Cont BiPAP. Assessment & Plan (04/04/2018 1:57 PM EST): Encouraged continued use of BiPAP. Assessment & Plan (12/06/2017 11:45 AM EDT): Continue BiPAP. Assessment & Plan (10/11/2017 7:27 PM EDT): Cont BiPAP Assessment & Plan (07/06/2017 9:24 AM EDT): Continue on BiPAP. Encouraged weight loss. Assessment & Plan (02/04/2017 7:44 PM EST): Continue on BiPAP. Encouraged weight loss. Could wean off of BiPAP maybe to CPAP if he is successful. Hypertension 02/01/2017 Cough 02/01/2017 Assessment & Plan (08/23/2024 2:03 PM EDT): Chronic cough Chronic cough has improved with Lyrica (pregabalin) 225 mg twice daily, with a noticeable reduction in coughing and decreased use of Hycodan. No side effects such as somnolence have been reported. He is not smoking, and pulmonary function tests from April 2024 were normal, indicating no significant pulmonary dysfunction. It is important to ensure no drug interactions with current medications, especially with concurrent gabapentin use. - Continue Lyrica 225 mg twice daily. - Refill Lyrica prescription. - Verify no drug interactions with current medications. - Consult neurologist regarding concurrent use of Lyrica and gabapentin. - Update medication list and check for drug interactions. - Schedule follow-up in six months. Orders: HYDROcodone-homatropine (HYDROMET) 5-1.5 mg/5 mL syrup; Take 5 mL by mouth 4 (four) times a day as needed (cough). Partial fill is not okay. Please fill completely. Assessment & Plan (06/04/2024 12:19 PM EDT): Chronic cough Chronic cough persists despite current treatment. Lyrica (pregabalin) was initiated with a titration plan, but he reports no improvement in symptoms at the current dose. He is still dependent on Hycodan (hydrocodone) for symptom management. The maximum dose of Lyrica for this indication is 450 mg per day, and the current plan is to titrate up to this dose to assess effectiveness. No side effects have been reported with Lyrica thus far. - Increase Lyrica to 2 pills in the morning and 2 at night for 3 days, then 2 in the morning and 3 at night for 3 days, and finally 3 in the morning and 3 at night as the final dose. - Continue Hycodan for symptom management. - Reassess in 3 months to evaluate the effectiveness of Lyrica. Orders: pregabalin (LYRICA) 75 MG capsule; Take 3 capsules (225 mg total) by mouth daily AND 3 capsules (225 mg total) Every Afternoon. HYDROcodone-homatropine (HYDROMET) 5-1.5 mg/5 mL syrup; Take 5 mL by mouth 4 (four) times a day as needed (cough). Partial fill is not okay. Please fill completely. Assessment & Plan (12/05/2023 9:38 AM EDT): Chronic Cough Persistent despite Hycodan use. Normal pulmonary function test. Discussed potential benefit of Lyrica for potential neurogenic cough. -Continue Hycodan as needed. -Start Lyrica 75mg daily for 3 days, then 75mg twice daily for 3 days, then 75mg in the morning and 150mg in the afternoon if no side effects. Assessment & Plan (04/21/2023 11:52 AM EST): Will order a another bottle of Hycodan with higher volume to accommodate 2 doses daily. Assessment & Plan (06/04/2021 9:52 AM EDT): Continue with the Hydromet. Recommend adding Mucinex 600 mg twice daily. Okay to stop the Flonase, which I don't think it is helpful. Assessment & Plan (02/12/2021 3:54 PM EST): Continue with hydromet. Will also try flonase for the post nasal drip. Assessment & Plan (06/11/2019 1:41 PM EDT): Continue with Hydromet. Patient's insurance is only paying for 240mL when he requires 300mL. I have sent an Rx and wish for it to be filled in its entirety. Will get a prior authorization if necessary. Assessment & Plan (11/14/2018 8:38 AM EDT): Cont with Hydromet. Will repeat PFTs in 2019. Assessment & Plan (04/04/2018 1:58 PM EST): Full work-up essentially negative. Patient does not recall trying post-nasal drip therapy, though I am sure he must've with previous work-ups. I did recommend sudafed/chlortrimeton and flonase combo. Asked to monitor BP. Continue with Hydromet, in the meanwhile. Assessment & Plan (12/06/2017 11:45 AM EDT): Bronchoscopy with normal alveoli on biopsy. Cultures growing mixed anaerobic and aerobic erika. Patient with penicillin allergy. Will try Ceftin. Recommended probiotics. Not sure if treating with antibiotics will help at all. If he has a rash or side effects to Ceftin I think I would leave it there and not try another antibiotic. Tessalon Perles and Hycodan are working to suppress the cough most of the time. Assessment & Plan (10/11/2017 7:26 PM EDT): Will plan for bronchoscopy to eval airways and look for atypical organisms. Will check CT chest to rule out bronchiectasis. Assessment & Plan (07/06/2017 9:23 AM EDT): Continue antireflux meds. Okay to continue with Hycodan as well. Will trial Gabapentin for neurogenic cough. Assessment & Plan (04/04/2017 10:15 AM EST): Seems to be improving on antireflux therapy. Continue lifestyle modifications including keeping head of bed elevated greater than 15 . Continue Nexium twice a day and Pepcid before bedtime. Would greatly recommend stopping the alcohol. We'll try to transition to Hycodan cough syrup in an effort to avoid more Tylenol. Patient advised to use Tylenol before going to work and the Hycodan before going to sleep. Eventually would want him to come off Tylenol entirely. Assessment & Plan (02/04/2017 7:47 PM EST): Recommend starting Tessalon perles 200mg twice a day. Also aggressive heartburn treatment with lifestyle modifications. Tylenol #3 is not as helpful as previously. Would switch to Hycodan if we want to keep on a codeine-based cough suppressant. Will try to obtain all previous records and work-up prior to next visit. Closed fracture of left distal radius Encounters Date Type Department Care Team Description 12/21/2024 Refill [facility] Pulmonary, Allergy and Critical Care Medicine [address] [place] [address] Disha Conley LPN Medication Refill from Last 3 Months Immunizations Immunization Administration Dates Next Due Influenza Quadrivalent Preservative Free IM 11/13 Family History Medical History Relation Comments Alzheimer's disease Father Lung disease Neg Hx Relation Status Comments Father Mother Social History Tobacco Use Types Packs/Day Years Used Date Smoking Tobacco: Former Cigarettes 1.5 25 1 04/06/1971 - 02/04/1997 Smokeless Tobacco: Never Tobacco Cessation:Counseling Given: Not Answered Alcohol Use Standard Drinks/Week Comments Yes 12 [...] Orientation Straight 07/23/2020 11 :42 PM EDT Last Filed Vital Signs Vital Sign Reading Time Taken Comments Blood Pressure 110/68 08/22/2024 8:07 AM EDT Pulse 64 08/22/2024 8:07 AM EDT Temperature 36.4 C (97.6 F) 08/22/2024 8:07 AM EDT Respiratory Rate 16 06/04/2021 9:32 AM EDT Oxygen Saturation 97% 08/22/2024 8:07 AM EDT Inhaled Oxygen Concentration - - Weight 98.2 kg (216 lb 6.4 oz) 08/22/2024 8:07 A M EDT Height 175.3 cm (5' 9 ) 08/22/2024 8:07 AM EDT Body Mass Index 31.96 08/22/2024 8:07 AM EDT Plan of Treatment Upcoming Encounters Date Type Department Care Team (Late st Contact Info) Description 03/15/2025 8:20 AM EST Office Visit [facility] Pulmonary, Allergy and Critical Care Medicine [address] [place] [address] Juanita Rae MD [address] [address] Health Maintenance Due Date Last Done Comments LIPID PANEL 1960 DEPRESSION SCREENING 1972 HEPATITIS C SCREENING 1978 HIV ONE-TIME SCREENING (18-65 YEARS) 1978 HEPATITIS A VACCINES (1 of 2 - Risk 2-dose series) 09/23/1979 SCREENING FOR DIABETES 09/23/1995 COLOGUARD 2005 COLONOSCOPY 2005 COLORECTAL CANCER SCREENING 2005 FIT TEST 2005 FOBT 2005 SIGMOIDOSCOPY 2005 VIRTUAL COLONOSCOPY 2005 RSV VACCINE (1 - Risk 50-74 years 1-dose series) 2010 ZOSTER VACCINES (3 of 3) 10/20/2023 08/25/2023, 12/12 INFLUENZA VACCINE (#1) 2024 , 03/23/2020, 01/23/2019, Additional history exists COVID-19 VACCINE (2024- season) 2024 08/01/2020, 07/11/2020 BLOOD PRESSURE 02/21/2025 08/22/2024 Adult Td,Tdap Booster 10/06/2029 10/07/2019, 012 PNEUMOCOCCAL VACCINES (50+ years) Completed 12/07/2022, 07/19/2011 SMOKING STATUS SCREENING (Once After 26 Yrs) Completed 08/22/2024 HIB VACCINES Aged Out No longer eligi ble based on patient's age to complete this topic MENINGOCOCCAL VACCINES (ACWY) Aged Out No longer eligible based on patient's age to complete this topic MENINGOCOCCAL VACCINES (B) Aged Out N o longer eligible based on patient's age to complete this topic Medical Devices Implanted Type Area Clinic Office Assistant Device Identifier Shelf Expiration Date Model / Serial / Lot Distal Plate 3 Hole Bone Volar Radial Geminus Titanium Lt Standard - [id number] Implanted:Qty: 1 on 08/08/2020 by Clemencia Berry MD at [facility] Left: Radius [employer] [facility] [id number] / / Peg Bone L22x2.3mm Locking Threaded Geminus Titanium Implantable Fossa Specific Plating System Fixation - [id number] Implanted:Qty: 4 on 08/08/2020 by Clemencia Berry MD at [facility] Left: [employer] [facility] [id number] -[id number] / / Screw Bone 13x3.5mm L Polyaxial Non Locking Compression Cortical Geminus Titanium Fossa Specific Plating - [id number] Implanted:Qty: 1 on 08/08/2020 by Clemencia Berry MD at [facility] Left: [employer] [facility] [id number] -TS / / Peg Bone 2.3mmx20 Threaded Geminus Locking - [id number] Implanted:Qty: 1 on 08/08/2020 by Clemencia Berry MD at [facility] Left: [employer] [id number] -TS / / Screw Bone 20x2.5mm Geminus Polyaxial Locking - [id number] Implanted:Qty: 1 on 08/08/2020 by Clemencia Berry MD at [facility] Left: [employer] [id number] -[id number] / / Screw Bone 12x3.5mm L Locking Cortical Geminus Titanium Fossa Specific Plating System - [id number] Implanted:Qty: 1 on 08/08/2020 by Clemencia Berry MD at [facility] Left: [employer] [id number] -TS / / Screw Bone 13x3.5mm L Locking Cortical Geminus Titanium Fossa Specific Plating System - [id number] Implanted:Qty: 1 on 08/08/2020 by Clemencia Berry MD at [facility] Left: [employer] [id number] -TS / / Insurance [facility] OUT OF [facility] PPO BLUE CROSS OUT OF STATE PPO BLUE CROSS OUT OF [facility] PPO BLUE CROSS OUT OF STATE PPO BLUE CROSS OUT OF STATE PPO BLUE CROSS OUT OF STATE PPO BLUE CROSS OUT OF STATE PPO [place] P[place] Care Teams Ironer Sock Relationship Specialty Start Date End Date Bladimir Pinzon NP [address] [facility] [place] [address] PCP - General Family Medicine 02/12/21 Additional Source Comments The information contained in this document represents components of the legal health record. It is not the complete legal health record.[facility]
--- OUTSIDE RECORDS SUMMARY | 2025-02-16 10:32 | XMS_ITS | Encounter Summary ---
Author Organization [facility] Address [address] [facility] [address] [place] [address] Phone Care Team Providers Care Service Line Layer Name Role Phone Des Cao MD Primary Care Provider +1- [phone] Bladimir Pinzon NP Primary Care Provider + Encounter Details Date Type Department Care Team (Late st Contact Info) Description 10/07/2017 Procedure Pass [facility], Ct Scan - [address] [address] Social History Tobacco Use Types Packs/Day Years [...] Pulmonary, Allergy and Critical Care Medicine [address] [place] [address] Juanita Rae MD 10 [facility] 2nd [place] [address] [email or web address] documented as of this encounter Visit Diagnoses Not on filedocumented in this encounter Care Teams Service Line Layer Relationship Specialty Start Date End Date Des Cao MD [email or web address] PCP - General Internal Medicine 02/01/17 02/11/21 Bladimir Pinzon NP [facility] [place] [address] PCP - General Family Medicine 02/12/21 documented as of this encounter Additional Source Comments The information contained in this document represents components of the legal health record. It is not the complete legal health record.[facility]
--- OUTSIDE RECORDS SUMMARY | 2025-02-16 10:32 | XMS_ITS | Encounter Summary ---
Author Organization [facility] Address [address] [facility] [address] [place] [address] Phone Care Team Providers Care Switchboard Manager Name Role Phone Des Cao MD Primary Care Provider +1- [phone] Bladimir Pinzon NP Primary Care Provider + Encounter Details Date Type Department Care Team (Late Contact Info) Description 11/15/2017 Procedure Pass [facility] Endoscopy Admitting Dept Virtual Department [address] [place] [address] Social History Tobacco Use Types Packs/Day Years [...] Critical Care Medicine [address] [place] [address] Juanita Rae MD [address] [address] [email or web address] documented as of this encounter Visit Diagnoses Not on filedocumented in this encounter Care Teams Switchboard Manager Relationship Specialty Start Date End Date Des Cao MD [email or web address] PCP - General Internal Medicine 02/01/17 02/11/21 Bladimir Pinzon NP [facility] [place] [address] PCP - General Family Medicine 02/12/21 documented as of this encounter Additional Source Comments The information contained in this document represents components of the legal health record. It is not the complete legal health record.[facility]
--- OUTSIDE RECORDS SUMMARY | 2025-02-16 10:32 | XMS_ITS | Encounter Summary ---
Author Organization [facility] Address [address] [facility] [address] [place] [address] Phone Care Team Providers Care Vehicle Monitor Technician Name Role Phone Des Cao MD Primary Care Provider +1- [phone] Bladimir Pinzon NP Primary Care Provider + Encounter Details Date Type Department Care Team (Late st Contact Info) Description 08/08/2020 Procedure Pass [place] Admitting Dept - Virtual Department [address] [place] [address] Social History Tobacco Use Types Packs/Day Years [...] Critical Care Medicine [address] [place] [address] Juanita Rae MD 10 [facility] 2nd [place] [address] [email or web address] documented as of this encounter Visit Diagnoses Not on filedocumented in this encounter Care Teams Vehicle Monitor Technician Relationship Specialty Start Date End Date Des Cao MD [email or web address] PCP - General Internal Medicine 02/01/17 02/11/21 Bladimir Pinzon NP [facility] [address] PCP - General Family Medicine 02/12/21 documented as of this encounter Additional Source Comments The information contained in this document represents components of the legal health record. It is not the complete legal health record.[facility]
[2025-02-16 13:20] LABS: Prostate Specific Antigen 1.18 ng/mL (<0.05-4.0)
== END 2025-02-16 10:28 | disposition home or self-care (01) ==
LOC: HO.LAB 10:27
PROVIDERS: PCP Nurse Practitioner Family; Visit Provider Urology
DX: N32.0 Bladder-neck obstruction (principal); Z12.5 Encounter for screening for malignant neoplasm of prostate
CPT/HCPCS: 36415; 84153

== ENCOUNTER 2025-02-21 10:50 | Outpatient (AMB) | payer BC, SELFPAY ==
--- NOTE | 2025-02-21 10:50 | MHC.OFFVIS ---
Intake Visit Reasons: yearly follow up/PSA/PVR/UA Intake Note: Patient is present for 1Y F/U PVR Urology Med: Tamsulosin, Antibiotic Allergy: Penicillins Blood Thinner: None LABS DONE 02/16/25 PSA : 1.18 TODAY'S PVR: 11ML'S Ammonium Nitrate Neutralizer Required: No Accompanied by: Self / Same As Patient Allergies celecoxib (From CELEBREX) Allergy (Unknown, Verified 02/21/25 11:00) HIVES penicillin G Allergy (Unknown, Verified 02/21/25 11:00) rash, swelling penicillin V Allergy (Unknown, Verified 02/21/25 11:00) hives Penicillins (PENICILLINS) Allergy (Unknown, Verified 02/21/25 11:00) HIVES HPI Comments Details: Nehemiah GONZALES is a very pleasant male. He is a patient of Dr Cao. He is seen for the following urologic conditions. - lower urinary tract symptoms Yearly follow-up Remains on tamsulosin Prior Discussed potential prostate incision for symptom progression PVR 0 cc PSA low. Under 2 to be checked every 2-3 years. Follow with PCP Guidelines given for him to call Lower Urinary Tract Symptoms:? PVR today 0cc ? Current visit is for?further evaluation of, lower urinary tract symptoms, predominate irritative symptoms, ?- was concerned he had a UTI.? Current treatment includes?tamsulosin ? Prostate Symptom Score?01/29 , Moderate (9-19), Bother 3.? Symptoms include?01/29 , frequency, urgency, nocturia (>2), and are progressing.? PSA?07/31 0.74, 11/02 1.0, 06/04 1.4 ? Prostate volume?30-50gm.? Testing at next visit will include?bladder scan.? [facility] Medical History Migraines Eye injury Atrial fibrillation with rapid ventricular response Pulmonary nodules Bladder outlet obstruction Nocturia Weak urinary stream MCKENNA (obstructive sleep apnea) Surgical History H/O wrist surgery History of surgery Leukoplakia Family History Father CVD (cardiovascular disease) Alzheimer's disease Dementia Substance use disorder Abdominal aortic aneurysm (AAA) Mother Infection of spine Substance use disorder Paternal Aunt Diabetes mellitus Brother Abdominal aortic aneurysm (AAA) Sister Abdominal aortic aneurysm (AAA) Sister Heart aneurysm Sister No problems noted. Sister No problems noted. Social History Household Members: Spouse Housing: House Do you presently have visiting nurse or other home services: No Alcohol intake: former Patient Tobacco Use Status: Former Tobacco user Tobacco use type: Cigarette Years Smoked: 25 years e-Cigarette/Vaping Use: Never Used Second Hand Smoke Exposure: No service: Yes Current occupational status: employed Current occupation: [employer] Current occupational exposures/hazards: No Cognitive needs: No Hearing needs: No Vision needs: No Review of Systems Const Denies chills and Denies fever(s) Card Reports no additional complaints and Denies syncope Resp Denies cough GI Denies abdominal pain and Denies heartburn Reports as per HPI and Denies change in libido Neuro Denies syncope Psych Denies change in libido Endo Denies change in libido Physical Exam Const General: cooperative, healthy appearing, comfortable and no acute distress Orientation/consciousness: patient oriented x3 HEENT Face and sinus: Yes normal facial exam Mouth: moist mucous membranes Neck Neck: Yes normal visual inspection, Yes full ROM and Yes trachea midline Chest Chest palpation & inspection: normal inspection of the chest Resp Effort & Inspection: normal respiratory effort, able to speak in complete sentences and no respiratory distress GI Inspection: Yes normal to inspection Back/Spine/Pelvis Cervical Spine: normal cervical lordosis Thoracic/Lumbar Spine: thoracic and lumbar spine normal to inspection Skin General skin exam: no rashes or lesions noted Neuro General: patient oriented x3, gait normal, tone normal and moves all extremities Extrem General: Yes normal to inspection and Yes capillary refill normal Office Procedures Post Void Residual Post Residual Void Post Void Residual (PVR): [id number]-[id number] Void Residual by ultrasound Results AMB Urinalysis, Automated UA Leukoctes 0 Moe/uL Last Edit by AARON Boykin on 02/21/25 11:08 UA Nitrite Negative Last Edit by AARON Boykin on 02/21/25 11:08 UA Urobilinogen 0.2 mg/dL Last Edit by Starr Colon, CCMA on 02/21/25 11:08 UA Protein 0 mg/dL Last Edit by Starr Colon, [facility] on 02/21/25 11:08 UA pH 8.0 Last Edit by Starr Colon, CCMA on 02/21/25 11:08 UA Blood 0 Gentry/uL Last Edit by Starr Colon, [facility] on 02/21/25 11:08 UA Specific Gustine 1.010 Last Edit by Starr Colon, CCMA on 02/21/25 11:08 UA Ketone Negative Last Edit by Starr Colon, [facility] on 02/21/25 11:08 UA Bilirubin 0 mg/dL Last Edit by Starr Colon, [facility] on 02/21/25 11:08 UA Glucose 0 mg/dL Last Edit by Starr Colon, [facility] on 02/21/25 11:08 Results Reviewed Results Reviewed: Laboratory Last Values Urine pH (Auto) 8.0 02/21/25 11:05 Specific Gustine (Auto) 1.010 02/21/25 11:05 Urine Protein (Auto) 0 mg/dL 02/21/25 11:05 Glucose (UA)(Auto) 0 mg/dL 02/21/25 11:05 Urine Ketones (Auto) Negative 02/21/25 11:05 Urine Blood (Auto) 0 Gentry/uL 02/21/25 11:05 Urine Nitrite (Auto) Negative 02/21/25 11:05 Urine Bilirubin (Auto) 0 mg/dL 02/21/25 11:05 Urine Urobilinogen (Auto) 0.2 mg/dL 02/21/25 11:05 Leukocyte Esterase (Auto) 0 Moe/uL 02/21/25 11:05 Assessment & Plan Assessment & Plan (1) Bladder outlet obstruction: Code(s): N32.0 - Bladder-neck obstruction Category: Medical Plan P.r.n. follow-up Orders: Orders Prostate Specific Antigen 02/16/25 N32.0 - Bladder-neck obstruction AMB Urinalysis Automated Today N13.8 - Other obstructive and reflux uropathy, N40.1 - Benign prostatic hyperplasia with lower urinary tract symptoms AMB Post Void Residual by ultrasound Today N40.1 - Benign prostatic hyperplasia with lower urinary tract symptoms Medications: Refilled tamsulosin 0.4 mg PO BEDTIME 90 caps 3RF 90 days N32.0 - Bladder-neck obstruction Patient Instructions: This note is constructed using voice recognition software. While every effort has been made to ensure accuracy steam tender errors may have been included. Imaging studies, laboratory and physical exam results were discussed and reviewed in detail. No major barriers to patient understanding were identified. An opportunity to ask questions regarding the treatment plan was provided. All questions were answered. The patient expressed understanding and agreement with the above treatment plan. The patient is aware they should contact our office by phone for worsening of their current condition or the appearance of new urologic symptoms. Compliance is encouraged with any medications and followup testing that is ordered. It is a privilege to participate in the urologic care of your patient. If you have any questions or concerns regarding treatment for the above conditions, or other urologic issues, please do not hesitate to contact me. The office telephone contact is [phone]. Sincerely, Dr Víctor Ha MD, [facility] - Urology Compassionate Specialist Care for the Genitourinary System Coding Level of Care Code Est Pt Level 3 (49987) Diagnoses Bladder outlet obstruction N32.0 CPT Codes Post Residual Void - PVR CPT Code: 24100-Illo Void Residual by ultrasound ([id number])
== END 2025-02-21 11:28 | disposition home or self-care (01) ==
LOC: HO.HUSH 10:51
PROVIDERS: PCP Nurse Practitioner Family; Visit Provider Urology
DX: N40.1 Benign prostatic hyperplasia with lower urinary tract symptoms (principal); N13.8 Other obstructive and reflux uropathy; N32.0 Bladder-neck obstruction
CPT/HCPCS: 99213

== ENCOUNTER → 2025-02-21 10:50 | Outpatient (BNVA) | payer BC, SELFPAY | PROVIDERS: PCP Nurse Practitioner Family; Visit Provider Urology | DX: N32.0 Bladder-neck obstruction (principal); Z79.899 Other long term (current) drug therapy | CPT/HCPCS: 51798; 81003 ==

== ENCOUNTER 2025-03-05 14:04 | Outpatient (AMB) | payer BC, SELFPAY ==
[2025-03-05 14:09] VITALS: BP 128/80; PULSE 96; O2SAT 95; BMI 30.7
--- NOTE | 2025-03-05 14:09 | MHC.PC.OV ---
Vital Signs 03/05/25 14:09 Height 5 ft 10 in Weight 214 lb BMI 30.7 BP 128/80 Blood Pressure Location Lt brachial Position Sitting Pulse 96 Pulse Source Pulse Oximeter Pulse Oximetry (%) 95 Intake Visit Reasons: PE Allergies celecoxib (From CELEBREX) Allergy (Unknown, Verified 03/05/25 14:49) HIVES penicillin G Allergy (Unknown, Verified 03/05/25 14:49) rash, swelling penicillin V Allergy (Unknown, Verified 03/05/25 14:49) hives Penicillins (PENICILLINS) Allergy (Unknown, Verified 03/05/25 14:49) HIVES Medication List - Last Reconciled 03/05/25 by Bladimir Pinzon, [employer]LECT[employer]ICAL SOLAR TECHNICIAN- albuterol sulfate 90 mcg/actuation 1 inh inhalation QID PRN atorvastatin 20 mg PO BEDTIME carbidopa-levodopa 25-100 mg 0.5 - 1 tabs PO BID 30 days fenofibrate 160 mg PO DAILY gabapentin 100 mg PO BID hydrocodone-homatropine 5-1.5 mg/5 mL 5 mL PO QID PRN magnesium oxide 400 mg PO BEDTIME 30 days MDD 1 omeprazole 20 mg PO DAILY pregabalin (Lyrica) 225 mg PO BID riboflavin (vitamin B2) 400 mg PO DAILY 30 days tamsulosin 0.4 mg PO BEDTIME 90 days ubrogepant (Ubrelvy) 50 - 100 mg (0.5 - 1 x 100 mg) PO ONCE PRN 30 days venlafaxine ER 225 mg PO DAILY Tobacco use date assessed: 09/06/24 Fall risk assessment: No Falls in past year Last assessed Fall Risk: 03/05/25 Dental Screening Dental Screen Date: 09/06/24 HPI PE HPI Details History of Present Illness The patient is a 64 year old male presenting for a physical exam. He reports numbness in his bilateral hands and all fingers, which is suggestive of carpal tunnel syndrome. The symptoms are worse on the left side, and he has a history of a left wrist fracture. His work involves fine hand and finger manipulation as well as wrist twisting. The patient recently underwent EMG testing, but the results are not yet available. He sees a neurologist for neuropathies, particularly in his right foot, and is prescribed pregabalin and carbidopa-levodopa. He has a history of atrial fibrillation and receives regular care from a health sciences program coordinator. He also follows with a urologist for prostate health, and a recent PSA level was within normal limits. Additionally, he has a history of acid reflux, which is managed effectively with omeprazole. Health Maintenance The patient is due for a colon cancer screening, and a referral was provided for a colonoscopy. He is also due for fasting labs and was instructed to have them drawn in the near future. He will continue with urology follow-up for prostate health monitoring. Social History - Employment: The patient's work involves fine manipulation of his hands and fingers, as well as wrist twisting. Review of Systems - Constitutional: Denies suicidal or homicidal ideation. - Cardiovascular: Denies chest pain. - Respiratory: Denies shortness of breath. - Gastrointestinal: Reports acid reflux. Denies abdominal pain, constipation, or diarrhea. - Neurological: Reports numbness in bilateral hands and fingers, as well as neuropathy in the right foot. Physical Exam General: Cooperative, healthy appearing, comfortable, no acute distress and well developed Orientation: Patient oriented x3 Limitations: No limitations Head: Normal to inspection Ears: Hearing grossly normal bilaterally Nose: Normal external nose present Face and sinus: Normal facial exam Eyes: Appearance normal, both eyes and all related structures Neck: Normal visual inspection and Yes full ROM Respiratory: Normal respiratory effort and able to speak in complete sentences. Clear to auscultation bilaterally Cardiovascular: Regular rate and rhythm. Normal S1 and S2 GI: Normal to inspection. Soft to palpation and nontender : Testicles without masses/lesions and no hernias appreciated Skin: No rashes or lesions noted Neuro: Patient oriented x3, positive phalen's test, especially to the left, greater than the right Extremities: Normal to inspection, Results - Labs: Recent PSA was within normal limits. - Tests and Diagnostics: EMG nerve conduction testing was recently performed; results are pending. Plan 1. Bilateral Carpal Tunnel Syndrome The patient's bilateral hand numbness is concerning for carpal tunnel syndrome, which is worse in the left hand where he has a history of a wrist fracture. His occupational tasks involving fine hand manipulation and wrist twisting are likely contributing factors. The results of a recent EMG and nerve conduction study are awaited. The patient was advised to use wrist guards and maintain straight alignment of his upper extremities to mitigate symptoms, with cubital tunnel syndrome also being a possibility. He was encouraged to schedule a follow-up appointment with his neurologist in the near future. 2. Peripheral Neuropathy He has an established history of neuropathy, particularly in the right foot, and is managed by a neurologist. He will continue his current medications, including pregabalin. He is advised to maintain his follow-up schedule with neurology. 3. History Of Atrial Fibrillation The patient has a history of atrial fibrillation and is under the regular care of a health sciences program coordinator. He will continue to follow up with his health sciences program coordinator as scheduled. 4. Gastroesophageal Reflux Disease The patient's acid reflux is well controlled with omeprazole. He will continue the medication, and an endoscopy will likely be performed concurrently with his upcoming colonoscopy. Discussion Notes I discussed with the patient that his hand numbness is likely due to carpal tunnel syndrome, possibly related to his work and a prior wrist fracture. I advised him to use wrist guards and maintain a straight arm posture to help alleviate his symptoms. I encouraged him to follow up with neurology soon to review his recent EMG test results and for further management. We also reviewed his need for a colon screening, and I provided him with a referral. I informed him that an endoscopy will likely be performed at the same time. I advised him to get fasting labs done in the near future. Patient Instructions - Please schedule an appointment to get your fasting blood work done soon. - A referral has been made for a colonoscopy. You may also have an endoscopy at the same time. - Make a follow-up appointment with your neurologist in the near future to discuss your hand numbness and review test results. - Use wrist guards and try to keep your arms and wrists straight to help with your symptoms. - Continue taking your prescribed medications, including omeprazole and pregabalin. - Continue your regular follow-up visits with your heart doctor (health sciences program coordinator) and your urologist. [facility] Medical History Migraines Eye injury Atrial fibrillation with rapid ventricular response Pulmonary nodules Bladder outlet obstruction Nocturia Weak urinary stream MCKENNA (obstructive sleep apnea) Surgical History H/O wrist surgery History of surgery Leukoplakia Family History Father CVD (cardiovascular disease) Alzheimer's disease Dementia Substance use disorder Abdominal aortic aneurysm (AAA) Mother Infection of spine Substance use disorder Paternal Aunt Diabetes mellitus Brother Abdominal aortic aneurysm (AAA) Sister Abdominal aortic aneurysm (AAA) Sister Heart aneurysm Sister No problems noted. Sister No problems noted. Social History Household Members: Spouse Housing: House Do you presently have visiting nurse or other home services: No Alcohol intake: former Patient Tobacco Use Status: Former Tobacco user Tobacco use type: Cigarette Years Smoked: 25 years e-Cigarette/Vaping Use: Never Used Second Hand Smoke Exposure: No service: Yes Current occupational status: employed Current occupation: [employer] Current occupational exposures/hazards: No Cognitive needs: No Hearing needs: No Vision needs: No Questionnaire PHQ-9 Over the last 2 weeks, how often have you been bothered by any of the following problems? 1. Little interest or pleasure in doing things: not at all 2. Feeling down, depressed, or hopeless: not at all 3. Trouble falling or staying asleep, or sleeping too much: not at all 4. Feeling tired or having little energy: several days 5. Poor appetite or overeating: not at all 6. Feeling bad about yourself - or that you are a failure or have let yourself or your family down: not at all 7. Trouble concentrating on things, such as reading the newspaper or watching television: not at all 8. Moving or speaking so slowly that other people could have noticed. Or the opposite - being so fidgety or restless that you have been moving around a lot more than usual: not at all 9. Thoughts that you would be better off or of hurting yourself in some way: not at all Total score: 1 Depression Screening Interpretation: Negative Depression Screening Done: Yes 03838 - PHQ-9 Billing: Yes Source: Developed by Drs. Theodore Fofana, Hali Deleon, James Barron and colleagues, with an educational meghan from [facility]. Thrive Questionnaire Date Thrive assessed: 09/03/24 Are you interested in more education?: No Currently or been in a relationship where the following occur: No concerns reported THRIVE Score: 0 OSKAR-7 AMB Questionnaire OSKAR-7 Date OSKAR - 7 assessed: 09/06/24 Source: Developed by Drs. Theodore Fofana, Hali Deleon, James Barron and colleagues, with an educational meghan from [facility]. Physical exam (Primary Care) Vital Signs: Last Vital Signs Pulse 96 03/05/25 14:09 BP 128/80 03/05/25 14:09 Pulse Ox 95 03/05/25 14:09 BMI result Body Mass Index 30.7 Tobacco/Smoking Status: Tobacco use Status Tobacco use date assessed 09/06/24 03/05/25 14:13 Patient Tobacco Use Status Former Tobacco user 03/05/25 14:13 Tobacco use type Cigarette 03/05/25 14:13 e-Cigarette/Vaping Use Never Used 03/05/25 14:13 PHQ-9: PHQ-9 Score PHQ-9: Total score 1 03/05/25 14:13 Depression Screening Interpretation: Negative Thrive Assessment: Date of Thrive Assessment Date Thrive assessed 09/03/24 03/05/25 14:13 Currently or been in a relationship where the following occur: No concerns reported Coding Level of Care Code Est Pt Level 3 (55034) Est Pt Prev Care 40-64y(71409) Diagnoses Screening for colon cancer Z12.11 Physical exam Z00.00 Additional Codes PHQ-9 - 91658 - PHQ-9 Billing: Yes ([id number]) Assessment & Plan Assessment & Plan (1) Screening for colon cancer: Code(s): Z12.11 - Encounter for screening for malignant neoplasm of colon Category: Medical (2) Physical exam: Code(s): Z00.00 - Encounter for general adult medical examination without abnormal findings Category: Medical Plan . Orders: Orders Complete Blood Count Auto Diff Today Z00.00 - Encounter for general adult medical examination without abnormal findings Comprehensive [place]. Panel Fast Today Z00.00 - Encounter for general adult medical examination without abnormal findings TSH reflex Free T4 Today Z00.00 - Encounter for general adult medical examination without abnormal findings UA CC w/rflx Micro + Cult Today Z00.00 - Encounter for general adult medical examination without abnormal findings Lipid Panel Today Z00.00 - Encounter for general adult medical examination without abnormal findings Referrals Gastroenterology Referral Z12.11 - Encounter for screening for malignant neoplasm of colon Medications: Refilled omeprazole 20 mg PO DAILY 90 caps 1RF omeprazole 20 mg PO DAILY 90 caps 2RF
--- OUTSIDE RECORDS SUMMARY | 2025-03-05 15:20 | XMS_ITS | Encounter Summary ---
Author Organization [facility]ly [facility] Address [address] [place] [id number] Phone Care Team Providers Care Vamp Cut Out Worker Name Role Phone Des Cao MD Primary Care Provider [phone] Bladimir Pinzon NP Primary Care Provider + Earlene Varela PA Unavailable [phone] Encounter Details Date Type Department Care Team (Late st Contact Info) Description 08/08/2020 Prep for Surgery [facility] Orth[facility] [address] [place] [id number] Clemencia Berry MD [address] [place] [address] Orthopedics & Sports Medicine, [facility] [place] [address] Social History Tobacco Use Types Packs/Day Years [...] Description 03/15/2025 8:20 AM EST Office Visit [facility] Pulmonology, Allergy and Critical Care Medicine Clinic [address] [place] [address] [place] [address] Juanita Rae MD [address] [facility] 2nd [place] [address] 03/21/2025 7:30 AM EST Office Visit [facility] [address] [place] [id number] Gretchen Sanchez MD [address] [place] [address] Orthopedics & Sports Medicine, [place] [address] documented as of this encounter Visit Diagnoses Not on filedocumented in this encounter Care Teams Vamp Cut Out Worker Relationship Specialty Start Date End Date Des Cao MD PCP - General Internal Medicine 02/01/17 02/11/21 Bladimir Pinzon NP [address] [place] [address] [place] [address] PCP - General Family Medicine 02/12/21 Earlene Varela PA [address] [place] [id number] Physician [employer] [facility] 02/19/25 documented as of this encounter Additional Source Comments The information contained in this document represents components of the legal health record. It is not the complete legal health record.[facility]
--- OUTSIDE RECORDS SUMMARY | 2025-03-05 15:20 | XMS_ITS | Clinical Summary ---
Author Organization [facility] Address [address] [facility] [address] [place] [address] Phone Care Team Providers Care Machine Biller Name Role Phone Bladimir Pinzon NP Primary Care Provider + Earlene Varela PA Unavailable [phone] Allergies Active Allergy Reactions Criticality Noted Date [...] it there and not try another antibiotic. Tesyris Madrigal and Hycodan are working to suppress the [...] Encounters Date Type Department Care Team Description 02/19/2025 Transcribe Orders [facility] [address] [place] [address] Earlene Varela PA 12/21/2024 Refill [facility]ology, All[facility] [address] [place] [address] Disha Conley LPN Medication Refill from Last [...] Description 03/15/2025 8:20 AM EST Office Visit [facility]ology[facility] [address] [place] [address] Juanita Rae MD [address] [place] [address] 03/21/2025 7:30 AM EST Office Visit [facility] [address] [place] [address] [id number] Gretchen Sanchez MD [address] [place] [address] Orthopedics & Sports Medicine, [place] [address] [email or web address] Maintenance Due Date Last Done Comments [...] 03/23/2020, 01/23/2019, Additional history exists COVID-19 VACCINE (3 - 2024- season) 2024 08/01/2020, 07/11/2020 BLOOD PRESSURE 02/21/2025 [...] this topic Medical Devices Implanted Type Area Medical Transcription Supervisor Device Identifier Shelf Expiration Date Model / Serial / Lot Distal Plate 3 Hole Bone Volar Radial Geminus Titanium Lt Standard - [id number] Implanted:Qty: 1 on 08/08/2020 by Clemencia Berry MD at [facility] Left: [employer] [id number]-LTS-3H L / / Peg Bone L22x2.3mm Locking Threaded Geminus Titanium Implantable Fossa Specific Plating System Fixation - [id number] Implanted:Qty: 4 on 08/08/2020 by Clemencia Berry MD at [facility] Left: [employer] [id number] -TS / / Screw Bone 13x3.5mm L Polyaxial Non Locking Compression Cortical Geminus Titanium Fossa Specific Plating - [id number] Implanted:Qty: 1 on 08/08/2020 by Clemencia Berry MD at [facility] Left: [employer] [id number] -TS / / Peg Bone 2.3mmx20 Threaded Geminus Locking - [id number] Implanted:Qty: 1 on 08/08/2020 by Clemencia Berry MD at [facility] Left: [employer] TPLS-26064 -TS / / Screw Bone 20x2.5mm Geminus Polyaxial Locking - [id number] Implanted:Qty: 1 on 08/08/2020 by Clemencia Berry MD at [facility] Left: [employer] [id number] -CC / / Screw Bone 12x3.5mm L Locking Cortical Geminus Titanium Fossa Specific Plating System - [id number] Implanted:Qty: 1 on 08/08/2020 by Clemencia Berry MD at [facility] Left: [employer] COLS-[id number] -TS / / Screw Bone 13x3.5mm L Locking Cortical Geminus Titanium Fossa Specific Plating System - [id number] Implanted:Qty: 1 on 08/08/2020 by Clemencia Berry MD at [facility] Left: [employer] [id number] -TS / / Insurance [facility] PPO BLUE CROSS OUT OF STATE PPO BLUE CROSS OUT OF STATE PPO BLUE CROSS OUT OF STATE PPO BLUE CROSS OUT OF STATE PPO BLUE CROSS OUT OF STATE PPO BLUE CROSS OUT OF STATE PPO BLUE CROSS OUT OF [place] [address] [place] [address] CROSS OUT OF [facility] PPO ESIS ESIS ESIS Care Teams Machine Biller Relationship Specialty Start Date End Date Bladimir Pinzon NP [address] [facility] [place] [id number] PCP - General Family Medicine 02/12/21 Earlene Varela PA [address] [place] [address] Physician Aws Developer 02/19/25 Additional Source Comments The information contained in this document represents components of the legal health record. It is not the complete legal health record.[facility]
--- OUTSIDE RECORDS SUMMARY | 2025-03-05 15:20 | XMS_ITS | Encounter Summary ---
Author Organization [facility] Address [address] [facility] [address] [place] [address] Phone Care Team Providers Care Director Toxicology Name Role Phone Bladimir Pinzon NP Primary Care Provider + Earlene Varela PA Unavailable [phone] Encounter Details Date Type Department Care Team (Late st Contact Info) Description 02/12/2021 Procedure Pass [facility], Ct Scan - [address] [address] Social History Tobacco Use Types Packs/Day Years [...] Description 03/15/2025 8:20 AM EST Office Visit [facility] Pulmonology, Allergy and Critical Care Medicine Clinic [address] [place] [address] Juanita Rae MD 10 [facility] 2nd [place] [address] 03/21/2025 7:30 AM EST Office Visit [facility] [address] [place] [address] Gretchen Sanchez MD [address] [place] [address] Orthopedics & Sports Medicine, [facility] [place], [place] [phone] documented as of this encounter Visit Diagnoses Not on filedocumented in this encounter Care Teams Director Toxicology Relationship Specialty Start Date End Date Bladimir Pinzon NP [address] [place] [id number] PCP - General Family Medicine 02/12/21 Earlene Varela PA [address] [place] [address] Physician Research Environmental Scientist 02/19/25 documented as of this encounter Additional Source Comments The information contained in this document represents components of the legal health record. It is not the complete legal health record.[facility]
--- OUTSIDE RECORDS SUMMARY | 2025-03-05 15:20 | XMS_ITS | Encounter Summary ---
Author Organization [facility] Address [address] [facility] [address] [place] [address] Phone Care Team Providers Care Disaster Recovery Specialist Name Role Phone Bladimir Pinzon NP Primary Care Provider + Earlene Varela PA Unavailable [phone] Encounter Details Date Type Department Care Team (Late st Contact Info) Description 12/05/2023 Procedure Pass [facility], Ct Scan - [facility] [address] [place] [address] Social History Tobacco Use Types Packs/Day Years [...] Description 03/15/2025 8:20 AM EST Office Visit [facility] Pulmonology, Allergy and Critical Care Medicine Clinic 10 [facility] [place] [address] Juanita Rae MD 10 [facility] 2nd [place] [address] 03/21/2025 7:30 AM EST Office Visit [facility] [address] [place] [address] Gretchen Sanchez MD [address] [place] [address] Orthopedics & Sports Medicine, [place] [address] documented as of this encounter Visit Diagnoses Not on filedocumented in this encounter Care Teams Disaster Recovery Specialist Relationship Specialty Start Date End Date Bladimir Pinzon NP [address] [facility] [address] PCP - General Family Medicine 02/12/21 Earlene Varela PA [address] [place] [address] Physician Campaign Manager 02/19/25 documented as of this encounter Additional Source Comments The information contained in this document represents components of the legal health record. It is not the complete legal health record.[facility]
--- OUTSIDE RECORDS SUMMARY | 2025-03-05 15:20 | XMS_ITS | Encounter Summary ---
Author Organization [facility] Address [address] [facility] [address] [place] [address] Phone Care Team Providers Care Intel Analyst Name Role Phone Des Cao MD Primary Care Provider [phone] Bladimir Pinzon NP Primary Care Provider + Earlene Varela Unavailable [phone] Encounter Details Date Type Department Care Team (Late st Contact Info) Description 08/08/2020 Procedure Pass [place] Admitting Dept - Virtual Department [address] [place] [address] Social History Tobacco Use Types Packs/Day Years [...] Description 03/15/2025 8:20 AM EST Office Visit [facility] Pulmonology, Allergy and Critical Care Medicine Clinic 10 [facility] [place], [place] [phone] Juanita Rae MD [address] [address] 03/21/2025 7:30 AM EST Office Visit [facility] [address] [place] [address] Gretchen Sanchez MD [address] [place] [address] Orthopedics & Sports Medicine, [place] [address] [email or web address] documented as of this encounter Visit Diagnoses Not on filedocumented in this encounter Care Teams Intel Analyst Relationship Specialty Start Date End Date Des Cao MD PCP - General Internal Medicine 02/01/17 02/11/21 Bladimir Pinzon NP [facility] [place] [address] PCP - General Family Medicine 02/12/21 Earlene Varela PA [address] [place] [address] Physician Tire Spotter 02/19/25 documented as of this encounter Additional Source Comments The information contained in this document represents components of the legal health record. It is not the complete legal health record.[facility]
--- OUTSIDE RECORDS SUMMARY | 2025-03-05 15:20 | XMS_ITS | Encounter Summary ---
Author Organization [facility] Address [address] [facility] [address] [place] [address] Phone Care Team Providers Care Planning Supervisor Name Role Phone Des Cao MD Primary Care Provider [phone] Bladimir Pinzon NP Primary Care Provider + Earlene Varela Unavailable [phone] Encounter Details Date Type Department Care Team (Late st Contact Info) Description 10/07/2017 Procedure Pass [facility], Ct Scan - [address] [address] Social History Tobacco Use Types Packs/Day Years [...] Description 03/15/2025 8:20 AM EST Office Visit [facility] Pulmonology, Allergy and Critical Care Medicine Clinic 10 [facility] [place], [place] [phone] Juanita Rae MD [address] [address] 03/21/2025 7:30 AM EST Office Visit [facility] Orth[facility]ics [facility] Sports Medicine Clinic 4 [place] [address] Gretchen Sanchez MD [address] [place] [address] Orthopedics & Sports Medicine, [place] [address] [email or web address] documented as of this encounter Visit Diagnoses Not on filedocumented in this encounter Care Teams Planning Supervisor Relationship Specialty Start Date End Date Des Cao MD PCP - General Internal Medicine 02/01/17 02/11/21 Bladimir Pinzon NP [facility] [place] [address] PCP - General Family Medicine 02/12/21 Earlene Varela PA [address] [place] [address] Physician Wastewater Technician 02/19/25 documented as of this encounter Additional Source Comments The information contained in this document represents components of the legal health record. It is not the complete legal health record.[facility]
--- OUTSIDE RECORDS SUMMARY | 2025-03-05 15:20 | XMS_ITS | Encounter Summary ---
Author Organization [facility] Address [address] [facility] [address] [place] [address] Phone Care Team Providers Care Heel Packer Name Role Phone Bladimir Pinzon NP Primary Care Provider + Earlene Varela PA Unavailable [phone] Reason for Visit * Reason Onset Date Comments Medication Refill 04/25/2023 Encounter Details Date Type Department Care Team (Late st Contact Info) Description 04/25/2023 Telephone [facility] Pulmonology, Allergy and Critical Care Medicine Clinic [address] [facility] [address] [place], [place] [phone] Key Ordoñez MA [email or web address] Medication Refill Social History Tobacco Use Types [...] the pt to call the office back [phone] to so we camn refill his medication (Hydrocodone) documented in this encounter Plan of Treatment Upcoming Encounters Date Type Department Care Team (Late st Contact Info) Description 03/15/2025 8:20 AM EST Office Visit [facility] Pulmonology, Allergy and Critical Care Medicine Clinic [address] [place] [address] Juanita Rae MD [address] [place] [address] 03/21/2025 7:30 AM EST Office Visit [facility] Medicine Clinic [address] [place] [address] Gretchen Sanchez MD [address] [place] [address] Orthopedics & Sports Medicine, [facility] [place] [address] documented as of this encounter Visit Diagnoses Not on filedocumented in this encounter Care Teams Heel Packer Relationship Specialty Start Date End Date Bladimir Pinzon NP [facility] [place] [address] PCP - General Family Medicine 02/12/21 Earlene Varela PA [address] [place] [address] Physician Certified Medical Aide 02/19/25 documented as of this encounter Additional Source Comments The information contained in this document represents components of the legal health record. It is not the complete legal health record.[facility]
--- OUTSIDE RECORDS SUMMARY | 2025-03-05 15:20 | XMS_ITS | Encounter Summary ---
Author Organization [facility] Address [address] [facility] [address] [place] [address] Phone Care Team Providers Care Combiner Operator Name Role Phone Des Cao MD Primary Care Provider [phone] Bladimir Pinzon NP Primary Care Provider + Earlene Varela Unavailable [phone] Encounter Details Date Type Department Care Team (Late st Contact Info) Description 11/15/2017 Procedure Pass [facility] Admitting Dept Virtual Department [address] [place] [address] Social History Tobacco Use Types Packs/Day Years [...] Description 03/15/2025 8:20 AM EST Office Visit [facility] Pulmonology, Allergy and Critical Care Medicine Clinic 10 [place], [place] [phone] Juanita Rae MD [address] [address] 03/21/2025 7:30 AM EST Office Visit [facility] Clinic [address] [place] [address] Gretchen Sanchez MD [address] [place] [address] Orthopedics & Sports Medicine, [place], [place] [id number] [email or web address] documented as of this encounter Visit Diagnoses Not on filedocumented in this encounter Care Teams Combiner Operator Relationship Specialty Start Date End Date Des Cao MD PCP - General Internal Medicine 02/01/17 02/11/21 Bladimir Pinzon NP [facility] [place] [address] PCP - General Family Medicine 02/12/21 Earlene Varela PA [address] [place] [address] Physician Bow Stapler 02/19/25 documented as of this encounter Additional Source Comments The information contained in this document represents components of the legal health record. It is not the complete legal health record.[facility]
== END 2025-03-05 15:22 | disposition home or self-care (01) ==
LOC: HO.HMCC 14:04
PROVIDERS: PCP Nurse Practitioner Family; Visit Provider Nurse Practitioner Family
DX: Z00.00 Encounter for general adult medical examination without abnormal findings (principal); R20.2 Paresthesia of skin; G57.92 Unspecified mononeuropathy of left lower limb; K21.9 Gastro-esophageal reflux disease without esophagitis; Z86.79 Personal history of other diseases of the circulatory system

== ENCOUNTER → 2025-03-05 14:04 | Outpatient (BNVA) | payer BC, SELFPAY | PROVIDERS: PCP Nurse Practitioner Family; Visit Provider Nurse Practitioner Family | DX: Z13.31 Encounter for screening for depression (principal) | CPT/HCPCS: 96127 ==